=== PATIENT | male | born 1960 | race Caucasian/White ===

== ENCOUNTER → 2019-11-01 | Outpatient (CLI) | payer MEDICAID, SELFPAY | PROVIDERS: Family Provider Internal Medicine; Visit Provider Thoracic Surgery (Cardiothoracic Vascular Surgery) | DX: I65.23 Occlusion and stenosis of bilateral carotid arteries (principal) | CPT/HCPCS: 93880 ==

== ENCOUNTER → 2020-01-03 08:12 | Outpatient (BNVA) | payer MEDICAID, SELFPAY | PROVIDERS: Family Provider Internal Medicine; PCP Internal Medicine; Referring Provider Internal Medicine Cardiovascular Disease; Visit Provider Specialist | DX: R29.90 Unspecified symptoms and signs involving the nervous system (principal); R26.9 Unspecified abnormalities of gait and mobility; Z87.891 Personal history of nicotine dependence | CPT/HCPCS: 99204 ==

== ENCOUNTER 2020-01-12 13:22 | Outpatient (CLI) | payer MEDICAID, SELFPAY ==
--- NOTE | 2020-01-12 13:45 | MR_ITS ---
WS: [id number] MRI HEAD WITHOUT CONTRAST TECHNIQUE: Sagittal T1, T2 axial, T2 axial FLAIR, axial and coronal T1 images, axial susceptibility w eighted imaging, axial diffusion weighted images, and coronal T2 images were obtained. CLINICAL INFORMATION: unsteady gait COMPARISON: CTA head neck July 27, 2013 FINDINGS: No evidence of restricted diffusion to suggest acute ischemia. Ventricular system and basal cisterns are patent. Advanced patchy supra and infratentorial white matter changes consistent with small vesse l disease in a patient this age. Moderate parenchymal volume loss. Small vessel changes in the aruna. Chronic lacunar infarcts right betancourt radiata and thalamus. Multiple chronic lacunar infarcts in the LEFT CEREBELLUM. Partial opacification right mastoid air cells. Mucosal thickening paranasal sinuses with partial opac ification of the ethmoid air cells and right frontal ethmoidal recess. Moderate mucosal thickening ri ght maxillary sinus. Normal vascular flow voids at the skull base. Incidental sebaceous cyst left sca lp. Visualized upper cervical canal is patent. Normal sella. No hemosiderin on the susceptibility weighte d images. Normal optic chiasm and pituitary infundibulum. Normal supraclinoid ICA flow voids. Visuali zed proximal 7th and 8th cranial nerves appear normal. MR/MR head wo con* [id number] IMPRESSION: 1. No evidence of restricted diffusion to suggest acute ischemia. 2. Advanced supra and infratentorial small vessel changes with moderate parenc hymal volume loss. This appears progressed since 2012. 3. Multiple chronic lacunar infarcts involving the right bet[place]ourt radiata, right thalamus, and LEFT CEREBELLUM. 4. Prominent small vessel changes in the aruna. 5. Partial opacification right mastoid air cells. 6. Inflammatory changes in the paranasal sinuses with right frontoethmoidal, e thmoidal and right maxillary sinusitis. 7. Moderate symmetric atrophy involving the temporal lobes and hippocampal for mation. 8. No evidence of ventricular dilatation or normal pressure hydrocephalus.
== END 2020-01-12 13:23 | disposition home or self-care (01) ==
LOC: RADSHAW 13:23
PROVIDERS: Family Provider Internal Medicine; PCP Internal Medicine; Visit Provider Specialist
DX: I63.9 Cerebral infarction, unspecified (principal); R26.81 Unsteadiness on feet
CPT/HCPCS: 70551

== ENCOUNTER → 2020-01-16 11:55 | Outpatient (BNVA) | payer MEDICAID, SELFPAY | PROVIDERS: Family Provider Internal Medicine; PCP Internal Medicine; Visit Provider Specialist | DX: G62.9 Polyneuropathy, unspecified (principal); Z87.891 Personal history of nicotine dependence | CPT/HCPCS: 95909 ==

== ENCOUNTER 2020-02-09 13:47 | Outpatient (CLI) | payer MEDICAID, SELFPAY ==
--- NOTE | 2020-02-09 14:15 | USCV_ITS ---
Riccardo Dumont Age: 59 Gender: M : 1960 Exam Date: 02/09/2020 13:48 Ordering Phys: Yoel Muir MD ([email or web address]) Technologist: Tamra Simmons Exam Location: [facility] – [place] Indication: SOB POUNDING OF HEART BP: / HR: 71 Rhythm: Sinus Technical Quality: Adequate MEASUREMENTS (Male / Female) Normal Values 2D ECHO LV Diastolic Diameter PLAX 4.5 cm 4.2 - 5.9 / 3.9 - 5.3 cm LV Systolic Diameter PLAX 3.1 cm LV Chamber Size 3.7 cm IVS Diastolic Thickness 1.1 cm 0.6 - 1.0 / 0.6 - 0.9 cm IVS Systolic Thickness 1.5 cm LVPW Diastolic Thickness 1.0 cm 0.6 - 1.0 / 0.6 - 0.9 cm LVPW Systolic Thickness 1.2 cm RV Chamber Size 3.6 cm LVOT Diameter 2.0 cm LV Ejection Fraction 2D Teich 58.0 % LV Ejection Fraction MOD 2C -1.3 % LV Ejection Fraction 2C AL 0.4 % LA Diameter 3.9 cm LA Width 2.5 cm LA Height 4.4 cm RA Width 3.0 cm RA Height 4.5 cm Aorta at Sinotubular Diameter 3.3 cm M-MODE LV Diastolic Diameter MM 4.8 cm 4.2 - 5.9 / 3.9 - 5.3 cm LV Systolic Diameter MM 2.6 cm LV Ejection Fraction MM Teich 77.8 % IVS Diastolic Thickness MM 1.0 cm 0.6 - 1.0 / 0.6 - 0.9 cm IVS Systolic Thickness MM 1.3 cm LVPW Diastolic Thickness MM 1.3 cm 0.6 - 1.0 / 0.6 - 0.9 cm LVPW Systolic Thickness MM 2.1 cm RV Diastolic Diameter MM 1.6 cm Aortic Annulus Diameter 3.6 cm LA Ao Ratio MM 1.1 MV E Point Septal Separation 0.4 cm DOPPLER AV Peak Velocity 168.0 cm/s LVOT Peak Velocity 110.0 cm/s AV Area Cont Eq vti 2.2 cm squared AV Area Cont Eq pk 2.1 cm squared MV Area PHT 3.1 cm squared Mitral E to A Ratio 1.0 MV E' Velocity 78.0 cm/s Mitral E to MV E' Ratio 10.7 Mitral E to LV E' Lateral Ratio 8.3 Mitral E to LV E' Septal Ratio 15.0 TR Peak Velocity 220.0 cm/s TR Peak Gradient 19.3 mmHg TR Mean Velocity 197.1 cm/s TR Mean Gradient 17.5 mmHg TR Velocity Time Integral 65.7 cm TV Peak E Velocity 54.0 cm/s Right Atrial Pressure 3.0 mmHg Pulmonary Artery Systolic Pressu 22.4 mmHg PV Peak Velocity 79.0 cm/s RV Acceleration Time 0.1 s RV Ejection Time 0.3 s RV AcT/ET 0.4 FINDINGS Left Ventricle Normal left ventricular cavity size. Moderate left ventricular hypertrophy. Normal left ventricular systolic function. No regional wall motion abnormalities. Grade II/IV diastolic dysfunction, moderately elevated filling pressures. Left ventricular ejection fraction is estimated at 65-70 %. There is no obvious gradient in the left ventricular outflow tract. There is also no obvious systolic anterior motion of the mitral valve. The study is of suboptimal quality. Right Ventricle Normal right ventricular size and systolic function. Normal right ventricular systolic pressure. Right Atrium The right atrium is normal in size. Left Atrium The left atrium is normal in size. Mitral Valve Structurally normal mitral valve without significant stenosis or prolapse. There is no mitral regurgitation. Aortic Valve Structurally normal trileaflet aortic valve. No aortic valve stenosis. Mild aortic valve regurgitation. Tricuspid Valve Structurally normal tricuspid valve. Trace tricuspid valve regurgitation. Pulmonic Valve Pulmonic valve not well visualized. Pericardium Normal pericardium without effusion. Aorta Normal ascending aorta dimension. CONCLUSIONS Normal left ventricular cavity size. Moderate left ventricular hypertrophy. Normal left ventricular systolic function. No regional wall motion abnormalities. Grade II/IV diastolic dysfunction, moderately elevated filling pressures. Left ventricular ejection fraction is estimated at 65-70 %. There is no obvious gradient in the left ventricular outflow tract. There is also no obvious systolic anterior motion of the mitral valve. The study is of suboptimal quality. Structurally normal trileaflet aortic valve. No aortic valve stenosis. Mild aortic valve regurgitation. Dr. Yoel Muir MD (Electronically Signed) Final Date: 09 February 2020 15:25 S
== END 2020-02-09 13:48 | disposition home or self-care (01) ==
PROVIDERS: Family Provider Internal Medicine; PCP Internal Medicine; Visit Provider Internal Medicine Cardiovascular Disease
DX: R00.2 Palpitations (principal); R06.02 Shortness of breath
CPT/HCPCS: 93306

== ENCOUNTER 2020-02-16 10:33 | Emergency (ER) | payer MEDICAID, SELFPAY ==
[2020-02-16 10:40] VITALS: BP 154/78; PULSE 110; RESP 16; TEMP 36.7; O2SAT 95; BMI 27.1
[2020-02-16 10:50] VITALS: O2SAT 94
--- NOTE | 2020-02-16 10:52 | XR_ITS ---
WS: [id number] PORTABLE CHEST HISTORY: dyspnea/cough COMPARISON: 05/21/2017 Hyperinflated lungs. Curvilinear area of scarring in the lower LEFT lung. No nodule or pneumonia. No pleural effusion or pneumothorax. Cardiac size: Normal. Mediastinum/Aorta: Mild atherosclerosis aorta. No osseous abnormality seen. XR/XR chest 1V portable [id number] IMPRESSION: Chronic emphysema and stable scar LEFT lower lobe.
--- NOTE | 2020-02-16 10:52 | ECG_ITS ---
Measurements Intervals [place] Rate: 105 P: 52 KS: 151 QRS: -63 QRSD: 102 T: 67 QT: 325 QTc: 431 SINUS TACHYCARDIA INFERIOR MYOCARDIAL INFARCTION , OF INDETERMINATE AGE ANTEROLATERAL MYOCARDIAL INFARCTION , OF INDETERMINATE AGE Compared to ECG 04/08/2018 05:55:57 Sinus rhythm no longer present Myocardial infarct finding still present Electronically Signed On 02-16-2020 11:06:14 CDT by Rosa Maria Gamez M.D. [id number]
--- NOTE | 2020-02-16 10:52 | W.ED.CHESTPA ---
HPI - Chest Pain General: Chief Complaint: Chest Pain Stated Complaint: CHEST PRESURE Time Seen by Provider: 02/16/20 10:37 History of Present Illness: HPI narrative: 59yo male presents emergency room with an episode of chest pain. It began this morning while he was sitting at rest at home. He took a sublingual nitro and it resolved after about 15 to 20 minutes he had associated dyspnea and radiation of pain into his arms when he had this. He also had some shortness of breath all of these symptoms was resolved within 15 or 20 minutes of taking the sublingual nitro. He had some nausea as well but did not throw up. Patient has a known history of coronary artery disease and in December of last year had an in-stent stenosis that was re-stented by Dr. Muir the cath report was reviewed. Also reviewed and compared to EKG done in that timeframe he has some new Q waves in the anterior precordial leads. There appears to be some rate related ST changes I set both the old and new EKGs to Dr. Lanier. We discussed some on the phone he feels there are rate related and do not represent any acute changes. The patient is seen the emergency room initially he does not have any chest pain her symptoms have all resolved since taking the sublingual nitro and have not recurred. He has recently been getting work-up from Dr. Muir including an echocardiogram and a Holter monitor to evaluate for what he describes as palpitations and racing of his heart rate. He had similar symptoms this morning when he is at home those also resolved after he took that nitro. Associated symptoms: Deny abdominal pain, dyspnea, fever(s), nausea or vomiting Review of Systems Const: Denies: fever, chills, body aches, change in appetite, fatigue or malaise ENMT: Denies: throat pain, ear pain, nasal discharge or nasal congestion Card: Denies: chest pain, edema, shortness of breath on exertion or shortness of breath when lying down Resp: Denies: shortness of breath, productive cough or non-productive cough GI: Denies: abdominal pain, nausea, vomiting, vomiting blood, coffee grounds in vomit, diarrhea, constipation, bloating, blood in stool or black tarry stool : Denies: flank pain, painful urination, urinary frequency or urinary urgency Skin/Breast: Denies: rash or itching PFSH ED PFSH: Medical History (Updated 02/16/20 @ 13:25 by Lloyd Hernandez, DO) Arteriosclerosis of both carotid arteries Chronic kidney disease COPD (chronic obstructive pulmonary disease) Coronary artery disease Diabetes mellitus Essential hypertension Hyperlipemia Myocardial infarct PAD (peripheral artery disease) Pounding heartbeat Tobacco abuse Surgical History H/O carotid endarterectomy H/O heart artery stent Social History Smoking and tobacco status: former smoker Quit status (tobacco): has quit using tobacco Year quit tobacco: 2012 Alcohol intake: current Alcohol intake frequency: holidays/special occasions only History of recent travel: No Physical Exam Const: COMMON NORMALS: no apparent distress GENERAL APPEARANCE: cooperative and comfortable ORIENTATION/CONSCIOUSNESS: Yes awake, Yes oriented to person, Yes oriented to place and Yes oriented to time HENMT: COMMON NORMALS: normocephalic, head/scalp atraumatic, hearing grossly normal bilaterally, external ears normal, EAC's normal, TM's normal bilaterally, nasal mucous membranes and turbinates normal, moist oral mucous membranes and oropharynx normal HEAD & SCALP: normocephalic and atraumatic NOSE: nasal mucous membranes and turbinates normal EXTERNAL EAR: Yes external ears normal EXTERNAL AUDITORY CANAL: EAC's normal TYMPANIC MEMBRANE: TM's normal bilaterally Eye: COMMON NORMALS: PERRL, EOMs intact bilaterally, conjunctivae normal and no scleral icterus CONJUNCTIVA: Yes conjunctivae normal PUPIL: Yes PERRL Neck/C-Spine: COMMON NORMALS: full ROM, no lymphadenopathy, supple and no JVD Lymph: LYMPHATIC: no lymphadenopathy noted and no lymphedema noted Resp: COMMON NORMALS: normal respiratory effort, no retractions, no use of accessory muscles and clear to auscultation bilaterally AUSCULTATION: clear to auscultation bilaterally Cardio: COMMON NORMALS: no JVD, regular rate, regular rhythm and no murmurs RATE: regular rate RHYTHM: regular rhythm GI: COMMON NORMALS: soft to palpation and no hepatosplenomegaly AUSCULTATION: Yes normoactive bowel sounds PALPATION: Yes soft, No tender, No guarding and Yes no hepatosplenomegaly Extremity: COMMON NORMALS: normal to inspection, normal capillary refill, no clubbing, cyanosis or edema, no calf tenderness and no pedal edema Neuro: SENSORIUM/ORIENTATION: Yes oriented to person, Yes oriented to place and Yes oriented to time Skin: COMMON NORMALS: no rashes or lesions noted GENERAL SKIN EXAM: no rashes or lesions noted Course Vital Signs: Vital signs: Vital Signs Temperature 98.1 F 02/16/20 10:40 Pulse Rate 101 H 02/16/20 13:38 Respiratory Rate 15 02/16/20 12:20 Blood Pressure 165/91 02/16/20 13:38 Pulse Oximetry 95 02/16/20 13:38 MDM - Chest Pain MDM Narrative: Medical decision making narrative: Due to patients history of coronary disease and the history of his presenting complaint today I strongly recommended that he be placed on observation further evaluated for cardiac ischemia. He is at extremely high risk by leaving early he exposes himself to the risk of myocardial infarction resulting in severe disability or even . This was relayed to him and he expressed understanding and still wished to go I gave him a new prescription for nitro because of believe his old one is no longer effective. Did attempt to call Dr. Muir who is a patient stated here follow Isadora's recommendation but he was not available today. Lab Data: Labs: Lab Results 02/16/20 02/16/20 02/16/20 Range/Units 10:45 10:45 10:45 WBC 7.6 (4.0-10.0) 10^3/ uL RBC 6.55 H (4.1-5.3) 10^6/u L Hgb 17.3 H (11.7-16.6) g/dL Hct 53.2 H (42.0-52.0) % MCV 81.2 (80-94) fL MCH 26.4 L (28.0-34.0) pg MCHC 32.5 (30.0-36.0) g/dL RDW 13.8 (12.1-15.1) % Plt Count 243 (130-400) 10^3/c mm MPV 9.8 (7.4-10.4) fL Neut % (Auto) 68.6 % Lymph % (Auto) 21.3 % [place] % (Auto) 7.8 % Eos % (Auto) 1.1 % Baso % (Auto) 0.7 % Neut # (Auto) 5.2 (1.8-7.7) 10^3/u L Lymph # (Auto) 1.6 (0.8-4.8) 10^3/u L [place] # (Auto) 0.6 (0.2-0.9) 10^3/u L Eos # (Auto) 0.1 (0.0-0.8) 10^3/u L Baso # (Auto) 0.1 (0.0-0.1) 10^3/u L Nucleated RBC % (a uto) 0 % Nucleated RBCs # 0.0 /100WBC Sodium 132 L (136-145) mmol/L Potassium 4.9 (3.5-5.1) mmol/L Chloride 95 L (98-107) mmol/L Carbon Dioxide 25 (22-29) mmol/L Anion Gap 16.9 (5-19) BUN 20 (8-23) mg/dL Creatinine 1.2 (0.7-1.2) mg/dL GFR Calculation 61.8 L (90-130) mL/min Glucose 445 H (65-115) mg/dL Calculated Osmolal ity 290 (285-295) mOsm/k g Calcium 11.4 H (8.5-10.5) mg/dL Total Bilirubin 0.5 (0.15-1.2) mg/dL AST 5 (0-40) U/L ALT 20 (0-41) U/L Alkaline Phosphata se 111 (40-130) IU/L Troponin T Baselin e 31 H (0-15) ng/mL Troponin T 120 Min [place] (0-15) ng/mL Delta Troponin T (0-10) ABS# Total Protein 7.5 (6.6-8.7) g/dL Albumin 4.3 (3.5-5.2) g/dL Globulin 3.2 (1.3-4.6) g/dL 02/16/20 Range/Units 12:34 WBC (4.0-10.0) 10^3/ uL RBC (4.1-5.3) 10^6/u L Hgb (11.7-16.6) g/dL Hct (42.0-52.0) % MCV (80-94) fL MCH (28.0-34.0) pg MCHC (30.0-36.0) g/dL RDW (12.1-15.1) % Plt Count (130-400) 10^3/c mm MPV (7.4-10.4) fL Neut % (Auto) % Lymph % (Auto) % [place] % (Auto) % Eos % (Auto) % Baso % (Auto) % Neut # (Auto) (1.8-7.7) 10^3/u L Lymph # (Auto) (0.8-4.8) 10^3/u L [place] # (Auto) (0.2-0.9) 10^3/u L Eos # (Auto) (0.0-0.8) 10^3/u L Baso # (Auto) (0.0-0.1) 10^3/u L Nucleated RBC % (a uto) % Nucleated RBCs # /100WBC Sodium (136-145) mmol/L Potassium (3.5-5.1) mmol/L Chloride (98-107) mmol/L Carbon Dioxide (22-29) mmol/L Anion Gap (5-19) BUN (8-23) mg/dL Creatinine (0.7-1.2) mg/dL GFR Calculation (90-130) mL/min Glucose (65-115) mg/dL Calculated Osmolal ity (285-295) mOsm/k g Calcium (8.5-10.5) mg/dL Total Bilirubin (0.15-1.2) mg/dL AST (0-40) U/L ALT (0-41) U/L Alkaline Phosphata se (40-130) IU/L Troponin T Baselin e (0-15) ng/mL Troponin T 120 Min [place] 27.39 H (0-15) ng/mL Delta Troponin T -3.61 L (0-10) ABS# Total Protein (6.6-8.7) g/dL Albumin (3.5-5.2) g/dL Globulin (1.3-4.6) g/dL Discharge Plan Discharge Patient Disposition: Left Against Medical Advice Clinical Impression: Coronary artery disease, Unstable angina Condition: Stable Prescriptions: New nitroglycerin 0.4 mg tablet, sublingual 0.4 mg SUBLINGUAL Q5M PRN (Reason: chest pain) Qty: 30 RF: 0 No Action clopidogrel 75 mg tablet 75 mg PO DAILY RF: 0 enalapril maleate 20 mg tablet 20 mg PO BID RF: 0 hydralazine 100 mg tablet 100 mg PO TID RF: 0 hydrocodone-acetaminophen 5-325 mg tablet 1 tab PO Q8H PRNRF: 0 latanoprost 0.005 % drops 1 drop ophthalmic (eye) DAILY RF: 0 metformin 500 mg tablet 500 mg PO BID RF: 0 metoprolol succinate 25 mg tablet extended release 24 hr 25 mg PO DAILY RF: 0 omeprazole 20 mg capsule,delayed release(DR/EC) 20 mg PO DAILY RF: 0 vitamins A,C,V-zgnf-ncvkvg PO DAILY RF: 0 sertraline 50 mg tablet 50 mg PO DAILY RF: 0 amlodipine 10 mg tablet 20 mg PO DAILY RF: 0 pravastatin 40 mg tablet 40 mg PO DAILY 90 Days Qty: 90 RF: 3 Discharge Orders: Discharge Order (Routine); Ordered 02/16/20 Ordered By: Lloyd Hernandez Referrals: Rg German DO [Primary Care Provider] - Discharge Diet: Usual diet Discharge Activity: Limit activity as instructed Activity Restrictions/Additional Instructions: Due to your personal history of coronary disease and the history of your presenting complaint today we strongly recommend that you be placed on observation further evaluated for cardiac ischemia. You are at extremely high risk by leaving early you exposure self to the risk of myocardial infarction resulting in severe disability or even . Discharge Date/Time: 02/16/20 13:38 Coding Level of Care Code ED Office Runner for Normag Fwd Exam Comprehensive
[2020-02-16 11:12] LABS: Basophils # 0.1 10^3/uL (0.0-0.1); Basophils % 0.7 %; Eosinophils # 0.1 10^3/uL (0.0-0.8); Eosinophils % 1.1 %; Hematocrit 53.2 % (42.0-52.0); Hemoglobin 17.3 g/dL (11.7-16.6); Lymphocytes # 1.6 10^3/uL (0.8-4.8); Lymphocytes % 21.3 %; Mean Corpuscular HGB Conc 32.5 g/dL (30.0-36.0); Mean Corpuscular Hemoglobin 26.4 pg (28.0-34.0); Mean Corpuscular Volume 81.2 fL (80-94); Mean Platelet Volume 9.8 fL (7.4-10.4); Monocytes # 0.6 10^3/uL (0.2-0.9); Monocytes % 7.8 %; Neutrophils # 5.2 10^3/uL (1.8-7.7); Neutrophils % 68.6 %; Nucleated Red Blood Cells % 0 %; Platelet Count 243 10^3/cmm (130-400); Red Blood Count 6.55 10^6/uL (4.1-5.3); Red Cell Distribution Width 13.8 % (12.1-15.1); White Blood Count 7.6 10^3/uL (4.0-10.0)
--- NOTE | 2020-02-16 11:21 | PC.NURSE ---
portable chest xray at bedside
[2020-02-16 11:31] LABS: Alanine Aminotransferase 20 U/L (0-41); Albumin Level 4.3 g/dL (3.5-5.2); Alkaline Phosphatase 111 IU/L (40-130); Anion Gap 16.9 (5-19); Blood Urea Nitrogen 20 mg/dL (8-23); Calcium 11.4 mg/dL (8.5-10.5); Carbon Dioxide 25 mmol/L (22-29); Chloride 95 mmol/L (98-107); Globulin 3.2 g/dL (1.3-4.6); Glomerular Filtration Rate 61.8 mL/min (90-130); Glucose 445 mg/dL (65-115); Osmolality Calculated 290 mOsm/kg (285-295); Potassium 4.9 mmol/L (3.5-5.1); Sodium 132 mmol/L (136-145); Total Bilirubin 0.5 mg/dL (0.15-1.2); Total Protein 7.5 g/dL (6.6-8.7)
[2020-02-16 11:32] LABS: Troponin(5th) Baseline 31 ng/mL (0-15)
[2020-02-16 11:39] LABS: Aspartate Amino Transferase 5 U/L (0-40)
[2020-02-16 12:20] VITALS: BP 155/88; PULSE 107; RESP 15; O2SAT 95
[2020-02-16 13:02] LABS: Troponin 5 2HR 27.39 ng/mL (0-15)
[2020-02-16 13:06] LABS: Troponin 5 2HR Delta -3.61 ABS# (0-10)
[2020-02-16] MEDS: insulin regular-human 100 units/1 mL 5 UNIT IVP (13:08)
[2020-02-16 13:38] VITALS: BP 165/91; PULSE 101; O2SAT 95
--- NOTE | 2020-02-16 16:52 | ECG_ITS ---
Measurements Intervals [place] Rate: 99 P: 51 VT: 153 QRS: -60 QRSD: 93 T: 56 QT: 339 QTc: 435 SINUS RHYTHM INDETERMINATE AXIS INFERIOR MYOCARDIAL INFARCTION , OF INDETERMINATE AGE ANTEROLATERAL MYOCARDIAL INFARCTION , OF INDETERMINATE AGE Compared to ECG 02/16/2020 10:48:36 Indeterminate axis now present Sinus tachycardia no longer present Myocardial infarct finding still present Electronically Signed On 02-16-2020 21:13:37 CDT by Rosa Maria Gamez M.D. [email or web address]
== END 2020-02-16 13:38 | disposition left against medical advice (07) ==
PROVIDERS: Emergency Provider Family Medicine; Family Provider Internal Medicine; PCP Internal Medicine
DX: I25.110 Atherosclerotic heart disease of native coronary artery with unstable angina pectoris (principal); Z53.21 Procedure and treatment not carried out due to patient leaving prior to being seen by health care provider; J44.9 Chronic obstructive pulmonary disease, unspecified; E11.22 Type 2 diabetes mellitus with diabetic chronic kidney disease; I12.9 Hypertensive chronic kidney disease with stage 1 through stage 4 chronic kidney disease, or unspecified chronic kidney disease; N18.9 Chronic kidney disease, unspecified; E78.5 Hyperlipidemia, unspecified; I25.2 Old myocardial infarction; Z87.891 Personal history of nicotine dependence
CPT/HCPCS: 12345; 36415; 71045; 80053; 84484; 85025; 93005; 96375; 99283; J1815

== ENCOUNTER → 2020-03-19 14:29 | Outpatient (BNVA) | payer MEDICAID, SELFPAY | PROVIDERS: Family Provider Internal Medicine; PCP Internal Medicine; Visit Provider Specialist | DX: R29.90 Unspecified symptoms and signs involving the nervous system (principal); R26.9 Unspecified abnormalities of gait and mobility; R07.9 Chest pain, unspecified; Z87.891 Personal history of nicotine dependence | CPT/HCPCS: 99214 ==

== ENCOUNTER → 2022-04-29 10:28 | Outpatient (BNVA) | payer MEDICAID, SELFPAY | PROVIDERS: PCP Internal Medicine; Visit Provider Podiatrist Foot & Ankle Surgery | DX: L60.3 Nail dystrophy (principal); E11.51 Type 2 diabetes mellitus with diabetic peripheral angiopathy without gangrene; Z79.4 Long term (current) use of insulin; I70.213 Atherosclerosis of native arteries of extremities with intermittent claudication, bilateral legs; M21.611 Bunion of right foot; M20.41 Other hammer toe(s) (acquired), right foot; M20.42 Other hammer toe(s) (acquired), left foot; B35.3 Tinea pedis; R09.89 Other specified symptoms and signs involving the circulatory and respiratory systems; M21.612 Bunion of left foot | CPT/HCPCS: 11721; 99213 ==

== ENCOUNTER 2022-06-24 13:11 | Outpatient (CLI) | payer MEDICAID, SELFPAY ==
--- NOTE | 2022-06-24 13:15 | USCV_ITS ---
Riccardo Dumont Age: 62 Gender: M : 1960 Exam Date: 06/24/2022 13:34 Ordering Phys: Pedro Guerin DPM Technologist: Exam Location: [facility] [place]_ Indication: leg pain RIGHT LEFT Brachial 132.00 mmHg Brachial 130.00 mmHg Pressure (mmHg) Waveform Pressure (mmHg) Waveform 100.00 Above Knee 106.00 90.00 Below Knee 84.00 88.00 BI DATA ARCHITECT 76.00 117.00 DPA 0.67 Ankle/Brachial Index 0.58 62.00 Pre-Exercise Toe Pressure 74.00 0.47 Pre-Exercise Toe/Brachial Index 0.56 FINDINGS Resting LARISA of 0.67 on the right and 0.58 on the left Resting TBI of 0.47 on the right and 0.56 on the left PVR waveforms showing delayed peaking low amplitude waveforms with blunting of the dicrotic notch CONCLUSIONS Abnormal resting ABIs and TBIs bilaterally, suggesting moderately severe peripheral arterial disease Dr Shonda Dupont MD [facility] (Electronically Signed) Final Date: 24 June 2022 20:56 S
== END 2022-06-24 13:12 | disposition home or self-care (01) ==
PROVIDERS: PCP Internal Medicine; Visit Provider Podiatrist Foot & Ankle Surgery
DX: R09.89 Other specified symptoms and signs involving the circulatory and respiratory systems (principal); M79.606 Pain in leg, unspecified
CPT/HCPCS: 93923

== ENCOUNTER → 2022-08-12 09:42 | Outpatient (BNVA) | payer MEDICAID, SELFPAY | PROVIDERS: PCP Internal Medicine; Visit Provider Podiatrist Foot & Ankle Surgery | DX: L60.3 Nail dystrophy (principal); E11.51 Type 2 diabetes mellitus with diabetic peripheral angiopathy without gangrene; Z79.4 Long term (current) use of insulin; I70.213 Atherosclerosis of native arteries of extremities with intermittent claudication, bilateral legs; B35.3 Tinea pedis; M21.611 Bunion of right foot; M20.41 Other hammer toe(s) (acquired), right foot; M21.612 Bunion of left foot; M20.42 Other hammer toe(s) (acquired), left foot | CPT/HCPCS: 11721 ==

== ENCOUNTER → 2022-09-18 12:25 | Outpatient (BNVA) | payer MEDICAID, SELFPAY | PROVIDERS: PCP Nurse Practitioner Family; Visit Provider Internal Medicine | DX: I73.9 Peripheral vascular disease, unspecified (principal); E78.5 Hyperlipidemia, unspecified | CPT/HCPCS: 99214 ==

== ENCOUNTER 2022-10-01 12:35 | Observation (INO) | payer MEDICAID, SELFPAY ==
[2022-10-01] VITALS (24 sets, daily range): BP systolic 121–155; BP diastolic 60–74; PULSE 52–85; RESP 4–23; TEMP 36.7–37.2; O2SAT 94–98; BMI 25.0
[2022-10-01] MEDS: diphenhydrAMINE 50 mg Capsule PO (07:51)
[2022-10-01 08:07] LABS: Glucose Point of Care 136 mg/dL (70-110)
[2022-10-01 08:23] LABS: Basophils % 0.5 %; Eosinophils # 0.3 10^3/uL (0.0-0.8); Eosinophils % 3.7 %; Hematocrit 49.5 % (42.0-52.0); Hemoglobin 16.3 g/dL (11.7-16.6); Mean Corpuscular HGB Conc 32.9 g/dL (30.0-36.0); Mean Corpuscular Hemoglobin 28.2 pg (28.0-34.0); Mean Corpuscular Volume 85.8 fl (80-94); Mean Platelet Volume 9.4 fL (7.4-10.4); Monocytes # 0.7 10^3/uL (0.2-0.9); Neutrophils # 4.43 10^3/uL (1.8-7.7); Nucleated Red Blood Cells % 0 %; Platelet Count 188 10^3/cmm (130-400); Red Blood Count 5.77 10^6/uL (4.1-5.3); White Blood Count 7.5 10^3/uL (4.0-10.0)
--- NOTE | 2022-10-01 08:30 | XACV_ITS ---
Wt: 84 kg BSA: 2.07 m2 Any Known Allergies: Other Gender: Male : 1960 Exam Type: Invasive Peripheral Vascular Procedure(s): Procedure Description: Diagnostic procedure Procedure Description: Peripheral Cath Diagnostic Procedure Procedure Description: Abdominal aortic angiography Procedure Description: Lower extremities' angiography Procedure Description: Peripheral vascular Intervention Procedure Description: PV Balloon Procedure Description: PV Stent Procedure Description: PV Atherectomy Procedure Description: Miscellaneous Procedure Description: ACT Exam Priority: Routine Abdominal Diagnostic Findings Distal abdominal aorta: Patent. Lower Extremity Diagnostic Findings INDICATION: 62-year-old man with history of smoking, diabetes, hyperlipidemia, PAD has been referred from podiatry clinic secondary to severe, lifestyle limiting claudication symptoms bilaterally. Patient had ABIs recently that showed significantly reduced LARISA value of 0.67 on right side and 0.58 on the left lower extremity. He cannot walk more than 100 feet without having to stop. Left lower extremity: Left common iliac artery: Patent Left external iliac artery: Has severe 80 to 90% stenosis Left common femoral artery: Patent Left profunda artery: Patent Left SFA has diffuse disease severe serial stenoses that are 80 to 90% stenosed in the proximal to mid section Left popliteal artery: Patent Left TP segment: Patent Left anterior tibial artery: Occluded Left posterior tibial artery patent Left peroneal artery: Patent. Right lower extremity: Right common iliac artery: Patent Right external iliac artery: Patent Right common femoral artery: Patent Right profunda artery: Patent Right SFA: Has severe proximal vessel multiple areas of 90-95% stenoses. Right popliteal artery: Patent Right TP segment: Patent Right anterior tibial artery: Occluded Right posterior tibial artery: Patent Right peroneal artery: Patent. Lower Extremity Interventional Findings Left Mid-longitudinal Superficial Femoral Artery: 90% stenosis treated with AB Plain 35 TIRE MAN Catheter [id number]. PROCEDURE DETAIL: After performing abdominal aortic angiogram, short 6 Marshallese sheath in right common femoral artery was switched to a long sheath that was placed in left external iliac artery. Using Glidewire and seeker support catheter external iliac and SFA lesions were crossed and wire was placed in TP segment. We then performed balloon angioplasty of right external iliac artery stenosis with a 6.0x40mm Balloon. This was followed by switching Glidewire to a Viper wire over seeker support catheter. Multiple runs of orbital arthrectomy were performed. We then dilated SFA with 5.0X250 mm balloon. We then placed 7.0 x 59mm stent in the left external iliac artery. At this time final angiogram showed excellent flow in the left lower extremity. . Conclusions Severe bilateral peripheral artery disease. S/p successful revascularization of left lower extremity with stent placement and left external iliac artery and orbital arthrectomy with balloon angioplasty of left SFA. We will stage revascularization of right lower extremity. Left Mid-longitudinal Superficial Femoral Artery was treated with Balloon. Left Mid-longitudinal External Iliac Artery was treated with Balloon and Stent. Recommendations Patient will be put on Xarelto 2.5 mg twice daily and Plavix. Plan for stages revascularization of the right lower extremity. Outpatient cardiology follow up. Hemodynamic Data Phase:Rest AO : / ( 25.0 ) @ 9:22:00 AM 129.0 / 49.0 ( 76.0 ) @ 9:30:00 AM 96.0 / 49.0 ( 70.0 ) @ 9:31:00 AM 99.0 / 53.0 ( 74.0 ) @ 9:34:00 AM 110.0 / 46.0 ( 71.0 ) @ 9:47:00 AM 146.0 / 46.0 ( 77.0 ) @ 9:52:00 AM 97.0 / 52.0 ( 72.0 ) @ 9:59:00 AM 115.0 / 58.0 ( 81.0 ) @ 10:06:00 AM 97.0 / 76.0 ( 83.0 ) @ 10:07:00 AM 170.0 / 70.0 ( 107.0 ) @ 10:22:00 AM 237.0 / 96.0 ( 140.0 ) @ 10:24:00 AM 151.0 / 61.0 ( 97.0 ) @ 10:25:00 AM 106.0 / 72.0 ( 89.0 ) @ 10:32:00 AM Access Site Site: Right Femoral artery Sheath Size: 6 Fr Hemost... Method: Suture Hemost... Success: Successful Procedure Details Findings Procedure Consent Obtained. Admit Source: Out Patient. Pre-Procedure Time Out. Identified patient by full name and date of as verbalized by the patient/guarantor. Does the consent match the physician's order: Yes. Accurate & Complete Informed Consent: Yes. Inpatient/Outpatient History & Physical on Chart: Yes. If H&P is completed, is and addenduem needed: No; If yes, is the addendum complete: N/A. Visualize and Verify Site with Patient/Guarantor: N/A. Relevant Radiology Images available: N/A. The risks, benefits, and alternatives of sedation and/or procedure were discussed by physician. The patient agrees to continue. Procedure started. Correct patient, site and procedure confirmed by cath team. Current diagnosis: Severe Lifestyle Limiting Claudication. PERRLA. Strong, equal hand carpet inspector bilaterally. Lungs clear x 5 lobes. IV Site on Arrival: 20 gauge in the right anticubital. IV Fluids: 0.9% NaCl at KVO. 0 mL infused prior to asset availability leader. Pre Procedural Pulses: bilateral dorsalis pedis was Absent. Pre Procedural Pulses: bilateral posterior tibial was Doppled. Oxygen started at 3liters/min via nasal canula. bilateral groins was prepped with chloroprep then draped in the usual sterile fashion. Baseline sample Acquired. HR: 65 BPM. Physician notified. Baseline sample Acquired. HR: 64 BPM. Physician arrived. Equipment: Peripheral. Cardiac Cath Pack. ACIST Manifold Kit Model BT 2000. Heparinized Saline (2 units/mL), 1000 mL bag. Physician scrubbed in. Time out performed with cath team. Immediate Pre-Procedure Time Out. Correct Patient: Yes; Correct Procedure: Yes; Correct Site: Yes; Correct Patient Position: Yes; Correct Supplies: Yes; Dried Flammable Prep: Yes; Blood Products Available: N/A;. Lidocaine 1% infiltrated to the right groin. Arterial access obtained with micropuncture set. A 5 Fr UF catheter in over wire. Abdominal aortogram performed in AP @ 10 mL/sec for a total of 30 mL. Glidewire inserted. Glidewire advanced down the Proximal left SFA. UF catheter out over the wire. Sheath upsized to a 6 Fr. 45 cm Sheath injected in Left Iliac femoral artery and runoff performed at 10ml/sec for a total of 30 ml. Left lower extremity angiography performed using DSA at 10 ml/sec for a total of 20 ml. Inflation number : 1 A AB ARMADA 35 OTW [id number] was prepped and advanced across the Mid External Iliac, Left , then inflated to 6 MARC for 1:30 seconds. Balloon out over the wire. Results checked. Seeker catheter inserted over the glidewire. Seeker and Glidewire advanced down the Left SFA/Popliteal. Hand Injection thru the seeker of the popliteal artery using DSA. Viperwire inserted. Parked in the Tibial Peroneal Trunk, Left side. Seeker out over the viper wire. 2.0 Nimco inserted. Atherectomy of the Left SFA performed. Nimco advanced. Atherectomy of the Left SFA performed. Nimco out over the viper wire. Seeker inserted over the viper wire. Viper wire out. Glidewire inserted. Seeker out over the glidewire. Inflation number : 1 A AB Plain 35 TIRE MAN Catheter [id number] was prepped and advanced across the Superficial Femoral, Left , then inflated to 6 MARC for 1:35 seconds. Balloon advanced. Inflation number: 2 The AB Plain 35 TIRE MAN Catheter [id number] was reinflated across the Superficial Femoral, Left, to 6 MARC for 1:33 seconds. Balloon out over the wire. Left common iliac selected and arteriogram with runoff performed @ 10 mL/sec for a total of 30 mL. Inflation Number : 2 A AB OMNILINK STENT 7.0X59MM -Lot Number# [id number] was prepped and advanced across the Mid External Iliac, Left. The stent was deployed at 11 MARC for 0:48 seconds. EXP: 07/02/25. Stent balloon out over the wire. Sheath injected at 10 ml/sec for a total of 10 ml using DSA of the external iliac. Flexor sheath exchanged for a 6fr short sheath. Glidewire removed. Sheath injected in Right common femoral artery and runoff performed at 10 ml/sec for a total of 30 ml. Physician review of films. ACT drawn. Results 264 seconds. Therapeutic limits - pre-heparin administration 90-150 seconds and monitoring heparin during a vascular procedure >250 seconds. Physician scrubbed out. A Suture was successful obtaining hemostatsis at the Right Femoral artery insertion site. Sheath(s) sutured into position with 2-0 silk and sterile 4x4's and Op-site applied over the site. No oozing or signs and symptoms of hematoma noted. Arterial sheath flushed and connected to tranducer and pressure bag with heparinized saline. Post Procedure: Pulses reassessed and unchanged. PERRLA. Strong, equal hand carpet inspector bilaterally. No VTE prophylaxis required. Medication's Wasted: Nitro = , Heparin = 49.6 mg. Medication's Wasted: Heparin = 2000 units. Total IV fluids: 182 mL. Fluoro: 22:01. Contrast type used: Visipaque 320 mgI/mL, 200 mL bottle. [id number]. Post-op diagnosis: Severe Bilateral Peripheral Arterial Disease: S/P intervention of the left iliac artery and the left sfa. Complications: None. Estimated blood loss: 5mL-10mL. Responsiveness - Normal response to verbal stimuli; alert and oriented, PERRLA. Airway - Unaffected, no intervention required; spontaneous ventilation. Circulation: W/N/L, pulses unchanged. Nausea/Vomiting: No. Procedure completed. Patient transferred by bed to CPRU. Vital chart was stopped. Procedure Medications Start: 9:17 AM Stop: 9:17 AM Medication: Versed Amount: 1 mg Route: I.V. Start: 9:17 AM Stop: 9:17 AM Medication: Fentanyl Amount: 50 mcg Route: I.V. Start: 9:23 AM Stop: 9:23 AM Medication: Versed Amount: 1 mg Route: I.V. Start: 9:35 AM Stop: 9:35 AM Medication: Versed Amount: 1 mg Route: I.V. Start: 9:49 AM Stop: 9:49 AM Medication: Heparin Amount: 5000 units Route: I.V. Start: 9:53 AM Stop: 9:53 AM Medication: Versed 1 mg and Fentanyl 25 mcg Amount: 1 Route: I.V. Start: 10:11 AM Stop: 10:11 AM Medication: Versed Amount: 1 mg Route: I.V. Start: 10:16 AM Stop: 10:16 AM Medication: Heparin Amount: 2000 units Route: I.V. Start: 10:25 AM Stop: 10:25 AM Medication: Nitrogylcerin Amount: 400 mcg Route: I.A. Start: 10:26 AM Stop: 10:26 AM Medication: Versed 1 mg and Fentanyl 25 mcg Amount: 1 Route: I.V. Start: 10:42 AM Stop: 10:42 AM Medication: Brilinta Amount: 180 mg Route: P.O. I, the attending physician, have reviewed and verified all procedure medications. Yes, all medications given per verbal order History/Risk Factors Hypertension: Yes Dyslipidemia: Yes Peripheral Arterial Disease (PAD): Yes Myocardial Infarction (IL): Yes Obesity: No Renal Disease: No Tobacco Use: Former Prior Interventions PCI: Yes CABG: No Valve Surgery: No Date of PCI: 12/03/2018 Report Signatures Finalized by Jomar Grider MD on 10/14/2022 08:55 AM
[2022-10-01 09:00] LABS: Blood Urea Nitrogen 25 mg/dL (8-23); Carbon Dioxide 26 mmol/L (22-29); Chloride 107 mmol/L (98-107); Glomerular Filtration Rate 61.1 mL/min (90-130); Glucose 137 mg/dL (65-115); Osmolality Calculated 299 mOsm/kg (285-295); Sodium 141 mmol/L (136-145)
[2022-10-01 09:02] LABS: Anion Gap 12.5 (5-19); Potassium 4.5 mmol/L (3.5-5.1)
--- NOTE | 2022-10-01 11:21 | SUR.PHASEI ---
Received the patient back from the cardiac cath lab technologist at 1045 S/P intervention of the left lower extremity via cot. Patient drowsy from procedural sedation. Awakens easily to voice commands and is alert and orientated x 3. 6fr sheath intact to the right groin to a pressure bag. site soft with no bleeding or hematoma noted. dressing dry and intact. Spouse, daughter, grandson and Dr. Grider at bedside. NS infusing at 100mL/hr to right PIV. No other assessment changes noted at this time.
--- NOTE | 2022-10-01 12:32 | SUR.PHASEI ---
Patient transferred to [facility] via bed with Mat JOE Nguyen, NURSING COORDINATOR and Karen Joe RN. Bedside report to be given.
[2022-10-01 14:52] LABS: Partial Thromboplastin Time 41.5 SECONDS (23.9-36.7)
[2022-10-01] MEDS: fentaNYL 50 mcg/mL INJ 2mL IVP (15:11)
[2022-10-01] MEDS: ALPRAZolam 0.5 mg Tablet 0.25 MG PO (15:17)
[2022-10-01] MEDS: ticagrelor 90 mg Tablet PO (17:38)
--- NOTE | 2022-10-01 18:41 | PC.NURSE ---
50 mcg fentanyl given iv push prior to procedure.right femoral arterial sheath pulled at 1520.manual pressure applied x 20 min.vss throughout procedure.no hematoma formation noted.site dressed with 2x2 gauze and secured with biocclusive drsg.pt instructed in activity restrictions s/p sheath pull...and instructed to notify staff for any bleeding,pain,numbness..or for any concerns at all.pt verb understanding of instructions.pt tolerated procedure well.
[2022-10-01] MEDS: sodium chloride 0.9% 1,000 ML 100 ML IV (19:48)
[2022-10-01] MEDS: sertraline 50 mg Tablet PO (20:24)
[2022-10-01] MEDS: tamsulosin 0.4 mg Capsule PO (20:24)
[2022-10-01] MEDS: hyDRALAzine 50 mg Tablet PO (20:25)
[2022-10-02] VITALS (49 sets, daily range): BP systolic 133–149; BP diastolic 69–71; PULSE 58–79; RESP 0–23; TEMP 36.6–36.9; O2SAT 95–96
[2022-10-02 04:33] LABS: Basophils % 0.4 %; Eosinophils # 0.2 10^3/uL (0.0-0.8); Eosinophils % 3.4 %; Hematocrit 43.9 % (42.0-52.0); Hemoglobin 14.7 g/dL (11.7-16.6); Lymphocytes # 1.5 10^3/uL (0.8-4.8); Lymphocytes % 21.4 %; Mean Corpuscular HGB Conc 33.5 g/dL (30.0-36.0); Mean Corpuscular Hemoglobin 28.9 pg (28.0-34.0); Mean Corpuscular Volume 86.2 fl (80-94); Mean Platelet Volume 9.3 fL (7.4-10.4); Monocytes # 0.7 10^3/uL (0.2-0.9); Monocytes % 10.3 %; Neutrophils # 4.53 10^3/uL (1.8-7.7); Neutrophils % 63.9 %; Nucleated Red Blood Cells % 0 %; Platelet Count 169 10^3/cmm (130-400); Red Blood Count 5.09 10^6/uL (4.1-5.3); Red Cell Distribution Width 13.2 % (12.1-15.1); White Blood Count 7.1 10^3/uL (4.0-10.0)
[2022-10-02 05:22] LABS: Blood Urea Nitrogen 24 mg/dL (8-23); Calcium 10.4 mg/dL (8.5-10.5); Carbon Dioxide 24 mmol/L (22-29); Chloride 109 mmol/L (98-107); Creatinine Clr Calc Pharmacy 77.9003; Glomerular Filtration Rate 67.6 mL/min (90-130); Glucose 123 mg/dL (65-115); Osmolality Calculated 297 mOsm/kg (285-295); Sodium 141 mmol/L (136-145)
[2022-10-02 05:28] LABS: Anion Gap 12.4 (5-19)
[2022-10-02 05:29] LABS: Potassium 4.4 mmol/L (3.5-5.1)
--- NOTE | 2022-10-02 07:32 | P.DS_ITS ---
Discharge Providers Date of Admission: 10/01/22 12:35 Date of Discharge: October 02, 2022 Attending Provider at Admission: Jomar Grider M.D Attending Provider at Discharge: Jomar Grider M.D Primary Care Provider: JADIEL Mtz Reason for Visit Reason for Visit: Peripheral angiogram for severe lifestyle limiting Brief History: 62-year-old man with history of smoking, diabetes, hyperlipidemia, PAD has been referred from podiatry clinic secondary to severe, lifestyle limiting claudication symptoms bilaterally.? Patient had ABIs recently that showed significantly reduced LARISA value of 0.67 on right side and 0.58 on the left lower extremity.? He cannot walk more than 100 feet without having to stop. Hospital Course Hospital Course Patient underwent peripheral angiogram that showed severe bilateral peripheral artery disease. Underwent successful revascularization of left lower extremity with stent placement and left external iliac artery and orbital arthrectomy with balloon angioplasty of left SFA. He also had severe right SFA disease. We will plan for staged revascularization of the right lower extremity. Patient started on Xarelto 2.5 mg twice daily and Plavix. He will be followed up as outpatient. His labs stayed stable. Physical Exam Narrative: GENERAL: Patient is alert, awake and oriented x3. [] NECK: No jugular vein distension. [] HEENT: No cyanosis. No icterus. No pallor. [] HEART: Regular S1 and S2. No murmur, rub or gallop. [] LUNGS: Clear to auscultate bilaterally. [] ABDOMEN: Soft, nontender and nondistended. Positive bowel sounds. No guarding, rebound or tenderness. [] CENTRAL NERVOUS SYSTEM: Grossly nonfocal. [] EXTREMITIES: Lower extremities with 1+ edema bilaterally. PT pulses palpable left lower extremity. Discharge Data Studies Completed and Pending Pending at discharge Category Date Time Status IMPROVEMENT COORDINATOR request for service Routine Exams 10/01/22 08:30 Taken Laboratory Results WBC 7.1 10^3/uL (4.0-10.0) 10/02/22 04:01 RBC 5.09 10^6/uL (4.1-5.3) 10/02/22 04:01 Hgb 14.7 g/dL (11.7-16.6) 10/02/22 04:01 Hct 43.9 % (42.0-52.0) 10/02/22 04:01 MCV 86.2 fl (80-94) 10/02/22 04:01 MCH 28.9 pg (28.0-34.0) 10/02/22 04:01 MCHC 33.5 g/dL (30.0-36.0) 10/02/22 04:01 RDW 13.2 % (12.1-15.1) 10/02/22 04:01 Plt Count 169 10^3/cmm (130-400) 10/02/22 04:01 MPV 9.3 fL (7.4-10.4) 10/02/22 04:01 Neut % (Auto) 63.9 % 10/02/22 04:01 Lymph % (Auto) 21.4 % 10/02/22 04:01 Hettinger % (Auto) 10.3 % 10/02/22 04:01 Eos % (Auto) 3.4 % 10/02/22 04:01 Baso % (Auto) 0.4 % 10/02/22 04:01 Neut # (Auto) 4.53 10^3/uL (1.8-7.7) 10/02/22 04:01 Lymph # (Auto) 1.5 10^3/uL (0.8-4.8) 10/02/22 04:01 Hettinger # (Auto) 0.7 10^3/uL (0.2-0.9) 10/02/22 04:01 Eos # (Auto) 0.2 10^3/uL (0.0-0.8) 10/02/22 04:01 Baso # (Auto) 0.0 10^3/uL (0.0-0.1) 10/02/22 04:01 Nucleated RBC % (auto) 0 % 10/02/22 04:01 Nucleated RBCs # 0.0 /100WBC 10/02/22 04:01 APTT 41.5 SECONDS (23.9-36.7) H 10/01/22 14:00 Sodium 141 mmol/L (136-145) 10/02/22 04:01 Potassium 4.4 mmol/L (3.5-5.1) 10/02/22 04:01 Chloride 109 mmol/L (98-107) H 10/02/22 04:01 Carbon Dioxide 24 mmol/L (22-29) 10/02/22 04:01 Anion Gap 12.4 (5-19) 10/02/22 04:01 BUN 24 mg/dL (8-23) H 10/02/22 04:01 Creatinine 1.1 mg/dL (0.7-1.2) 10/02/22 04:01 GFR Calculation 67.6 mL/min (90-130) L 10/02/22 04:01 Glucose 123 mg/dL (65-115) H 10/02/22 04:01 POC Glucose 136 mg/dL (70-110) H 10/01/22 08:00 Calculated Osmolality 297 mOsm/kg (285-295) H 10/02/22 04:01 Calcium 10.4 mg/dL (8.5-10.5) 10/02/22 04:01 Vitals Last Vital Signs Temp 98.4 F 10/02/22 07:28 Pulse 66 10/02/22 07:28 Resp 16 10/02/22 07:28 BP 133/71 10/02/22 07:28 Pulse Ox 96 10/02/22 07:28 O2 Del Method 10/02/22 07:28 Discharge Plan Discharge Patient Disposition: Home Condition: Stable Prescriptions: New Xarelto 2.5 mg tablet 2.5 mg PO BID Qty: 120 1RF Continued sertraline 50 mg tablet 50 mg PO DAILY Qty: 30 2RF latanoprost 0.005 % drops 1 drop ophthalmic (eye) DAILY vitamins A,C,O-cwwv-jaifgg 1 tab PO DAILY Janumet 50-500 mg tablet 1 tab PO BID nitroglycerin 0.4 mg tablet, sublingual 0.4 mg SUBLINGUAL Q5M PRN (Reason: chest pain) Qty: 50 6RF Rx Instructions: do not exceed 3 doses per episode hydrocodone-acetaminophen 5-325 mg tablet 1 tab PO Q4H PRN (Reason: Pain) clopidogrel 75 mg tablet 75 mg PO DAILY Qty: 30 6RF pravastatin 40 mg tablet 40 mg PO DAILY Qty: 30 6RF metoprolol succinate 25 mg tablet extended release 24 hr 25 mg PO DAILY Qty: 30 6RF ascorbic acid (vitamin C) 500 mg tablet 500 mg PO DAILY tamsulosin [Flomax] 0.4 mg capsule 0.4 mg PO DAILY pantoprazole [Protonix] 40 mg tablet,delayed release (DR/EC) 40 mg PO DAILY diphenhydramine HCl [Allergy (diphenhydramine)] 25 mg capsule 25 mg PO TID PRN (Reason: Itching) cilostazol 50 mg tablet 50 mg PO BID Qty: 180 3RF amlodipine-benazepril 10-40 mg capsule 1 cap PO DAILY Qty: 90 1RF hydralazine 50 mg tablet 50 mg PO BID Qty: 180 3RF Discharge Orders: Discharge Order (Routine); Ordered 10/02/22 Ordered By: Jomar Grider Referrals: Chantal Wilkinson FNP [Nurse Practitioner] - 7-10 days Discharge Diet: Cardiac Patient Instructions: Peripheral Vascular Stent Placement (DC), Peripheral Vascular Angioplasty (DC), Opioid Safety Discharge Attestations Time Spent in Discharge Care*: less than 30 min Quality Metrics Clinical Quality Measures [ No reported AMI, CVA or VTE this stay] Coding Level of Care Code Acute Chg FW DC note
[2022-10-02] MEDS: ALPRAZolam 0.5 mg Tablet 0.25 MG PO (07:47)
--- NOTE | 2022-10-02 10:41 | PC.CHAP ---
Pastoral Care Encounter/Spiritual Assessment Type of Contact [] Declined inpatient auditor visit [] Patient/Family/Request visit [] Outpatient visit [] Follow-up visit [] Physician referral [] Code/Alert [] Routine visit [] Staff referral [] Actively dying [] Patient sleeping [] Family support [] [] Out of room [] Palliative care [] [] Receiving care in room [] Pre-surgical visit [] Trauma [] Long length of stay [] ICU visit [x] Other: dismissed Relational/Emotional Strength [] Patient feels connected with others/family/visitors/staff [] Distress [] Loneliness/isolation [] Abandonment Spirituality of Patient [] Person of Steffany [] Attends Protestant of their Steffany [] Believes in Prayer [] Reads Bible or Denominational materials [] There are Spiritual issues to be addressed It Engineer Interventions [] Prayer [] Active listening [] Non-anxious presence [] Spiritual/emotional support [] Crisis/trauma care [] Spiritual counseling [] Bereavement support [] Provided bereavement packet [] Provided Bible/devotional materials [] Provided toy/stuffed animal, coloring book to patient or family member [] Provided Communion [] Anointing/[place] [] Salvation [] Completed spiritual assessment [] Other: Impact on Illness or Injury [] Angry [] Fearful [] Anxious [] Often cries [] Exhaustion [] Unable to work [] Unable to attend restorationist [] Unable to walk/stand [] Unable to read [] Unable to drive [] Unable to eat/drink [] Unable to sleep [] Unable to be with family [] Patient intubated [] Other: Summary dismissed Time spent with patient 5 mins
--- NOTE | 2022-10-02 11:32 | PC.NURSE ---
Upon morning assesments at approximately 730. patient was agitated that he was still in the hospital, said that if he wasn't discharged soon he will just leaf. Patient was also upset that he never received his anxiety medication last night. Nurse administered prn xanax and explained to the patient that there are no discharge orders yet as the Physician wants to see him one last time. Around 0800, Dr Grider made rounds and said patient is good to discharge. NUrse removed the patient's IV and explained to the patient that he has to finish up with another patient and then will work on his discharge, nurse explained the discharge process of making an appointment with heart care for followup, education, and some paperwork. While this nurse was in a room with another patient, the patient left the facility at 0812. Patient's stayed behind and nurse reviewed discharge education with her. SHe did not want us to make the appointment with heart care because she wanted to go and said they will make it themselves. NUrse provided them with heart care contact information.
--- NOTE | 2022-10-14 16:03 | W.PM.OPSUD ---
Surgery/Procedure H&P Update DATE OF PROCEDURE: DATE H&P PERFORMED: 09/18/22 H&P UPDATE INFORMATION: I have reviewed H&P completed within last 30 days, I have examined patient prior to procedure and No changes to prior documentation PREOP DIAGNOSIS: Severe lifestyle limiting claudication PRIMARY INDICATION FOR PROCEDURE: Severe lifestyle limiting claudication PLANNED PROCEDURE: Operation Date: 10/01/22 08:30 Proposed Procedures p Periph Angiogram 77770,I73.9,I70.219,G62.9,M79.604,M79.605(Not Applicable) - Jomar Grider M.D Possible percutaneous peripheral intervention. PATIENT REASSESSED PRIOR TO SEDATION, WITH NO CHANGE NOTED: Yes PHYSICAL EXAM: alert, oriented x 3, clear to auscultation bilaterally and regular rate & rhythm AIRWAY EVAL/ANESTHESIA PLAN: ASA III, Local Anesthesia, Risks, benefits & alternatives of sedation and/or procedure discussed and Patient agrees to continue as planned ADDITIONAL INFORMATION: Moderate sedation
== END 2022-10-02 08:20 | disposition home or self-care (01) ==
LOC: CSU 12:35
PROVIDERS: Admitting Provider Internal Medicine; PCP Nurse Practitioner Family; Visit Provider Internal Medicine
DX: I70.203 Unspecified atherosclerosis of native arteries of extremities, bilateral legs (principal); E78.5 Hyperlipidemia, unspecified; Z87.891 Personal history of nicotine dependence; J44.9 Chronic obstructive pulmonary disease, unspecified; I25.10 Atherosclerotic heart disease of native coronary artery without angina pectoris; E11.22 Type 2 diabetes mellitus with diabetic chronic kidney disease; I12.9 Hypertensive chronic kidney disease with stage 1 through stage 4 chronic kidney disease, or unspecified chronic kidney disease; N18.9 Chronic kidney disease, unspecified; I25.2 Old myocardial infarction
CPT/HCPCS: 36415; 36416; 37221; 37227; 75625; 75716; 80048; 82962; 85025; 85347; 85730; 96361; 96365; 99152; 99153; C1724; C1725; C1769; C1876; C1887; C1894; G0378; J1644; J2250; J3010; J3490; J7030; Q0163; Q9967

== ENCOUNTER → 2022-10-13 09:16 | Outpatient (BNVA) | payer MEDICAID, SELFPAY | PROVIDERS: PCP Nurse Practitioner Family; Visit Provider Nurse Practitioner Family | DX: I73.9 Peripheral vascular disease, unspecified (principal) | CPT/HCPCS: 99214 ==

== ENCOUNTER 2022-10-22 10:21 | Outpatient (CLI) | payer MEDICAID, SELFPAY ==
[2022-10-22 11:24] LABS: Basophils % 0.4 %; Eosinophils # 0.3 10^3/uL (0.0-0.8); Eosinophils % 3.4 %; Hematocrit 49.6 % (42.0-52.0); Hemoglobin 16.4 g/dL (11.7-16.6); Lymphocytes # 2.3 10^3/uL (0.8-4.8); Lymphocytes % 28.2 %; Mean Corpuscular HGB Conc 33.1 g/dL (30.0-36.0); Mean Corpuscular Hemoglobin 28.8 pg (28.0-34.0); Mean Corpuscular Volume 87.2 fl (80-94); Mean Platelet Volume 8.7 fL (7.4-10.4); Monocytes # 0.7 10^3/uL (0.2-0.9); Monocytes % 8.9 %; Neutrophils # 4.79 10^3/uL (1.8-7.7); Neutrophils % 58.6 %; Nucleated Red Blood Cells % 0 %; Platelet Count 200 10^3/cmm (130-400); Red Blood Count 5.69 10^6/uL (4.1-5.3); Red Cell Distribution Width 13.4 % (12.1-15.1); White Blood Count 8.2 10^3/uL (4.0-10.0)
[2022-10-22 11:26] LABS: INR 1.08 (0.83-1.21); Prothrombin Time (Patient) 14.3 Seconds (12.0-15.1)
[2022-10-22 11:36] LABS: Blood Urea Nitrogen 23 mg/dL (8-23); Calcium 11.7 mg/dL (8.5-10.5); Carbon Dioxide 28 mmol/L (22-29); Chloride 102 mmol/L (98-107); Glomerular Filtration Rate 67.6 mL/min (90-130); Glucose 115 mg/dL (65-115); Osmolality Calculated 291 mOsm/kg (285-295); Sodium 138 mmol/L (136-145)
[2022-10-22 11:42] LABS: Anion Gap 12.5 (5-19); Potassium 4.5 mmol/L (3.5-5.1)
== END 2022-10-22 10:22 | disposition home or self-care (01) ==
LOC: LAB 10:24
PROVIDERS: Internal Medicine; PCP Nurse Practitioner Family; Visit Provider Nurse Practitioner Family
DX: I10 Essential (primary) hypertension (principal); R58 Hemorrhage, not elsewhere classified; N18.9 Chronic kidney disease, unspecified
CPT/HCPCS: 36415; 80048; 85025; 85610

== ENCOUNTER → 2022-12-09 14:15 | Outpatient (BNVA) | payer MEDICAID, SELFPAY | PROVIDERS: PCP Nurse Practitioner Family; Visit Provider Podiatrist Foot & Ankle Surgery | DX: E11.51 Type 2 diabetes mellitus with diabetic peripheral angiopathy without gangrene; E11.8 Type 2 diabetes mellitus with unspecified complications; L60.3 Nail dystrophy; Z79.4 Long term (current) use of insulin; I70.213 Atherosclerosis of native arteries of extremities with intermittent claudication, bilateral legs; M21.612 Bunion of left foot; M21.611 Bunion of right foot; M20.42 Other hammer toe(s) (acquired), left foot; M20.41 Other hammer toe(s) (acquired), right foot; B35.3 Tinea pedis | CPT/HCPCS: 11721 ==

== ENCOUNTER 2023-02-27 06:00 | Outpatient (CLI) | payer MEDICAID, SELFPAY ==
[2023-02-27] VITALS (35 sets, daily range): BP systolic 116–181; BP diastolic 56–102; PULSE 60–75; RESP 10–21; TEMP 36.6–36.9; O2SAT 90–98; BMI 25.0
--- NOTE | 2023-02-27 06:00 | XACV_ITS ---
Exam Room: 2 Ht: 183 cm Wt: 84 kg BSA: 2.07 m2 Gender: Male : 1960 Any Known Allergies: Other Exam Priority: Routine Procedure(s): Procedure Description: Diagnostic procedure Procedure Description: Peripheral Cath Diagnostic Procedure Procedure Description: Abdominal aortic angiography Procedure Description: Lower extremities' angiography Procedure Description: Peripheral vascular Intervention Procedure Description: PV Balloon Procedure Description: PV Atherectomy Procedure Description: Miscellaneous Procedure Description: ACT Abdominal Diagnostic Findings Distal abdominal aorta: Patent. Lower Extremity Diagnostic Findings INDICATION: 62-year-old man with past medical history of PAD has been having significant right lower extremity claudication symptoms. He had intervention of left lower extremity recently. Plan for staged revascularization of right lower extremity today. Right lower extremity findings: Right common iliac artery is patent. Right external iliac artery is patent. Right common femoral artery is patent. Right profunda artery is patent. Right SFA has severe, serial heavily calcified 80 to 90% lesions from ostial to distal SFA. Right renal artery is patent. Right anterior tibial artery is occluded. Right TP trunk is patent. Right TP segment stent is patent. Right peroneal artery and posterior tibial arteries are patent.. Left leg runoff not performed. Prior iliac stent is patent. Ostial SFA appears to have significant disease. Lower Extremity Interventional Findings Ostial to distal SFA has 80 to 90% stenosis. Stenosis treated with 6FR Lutonix [id number] drug coated balloon. Procedure detail:After diagnostic images, we decided to intervene on the right SFA. Short 6 Citizen Of [place] sheath from left common femoral artery access site was switched to long flexor sheath. This was parked in right external iliac artery. Using seeker support catheter and Glidewire we crossed ostial to distal SFA stenosis and was put in the popliteal artery. Through the seeker support catheter, we switched Glidewire to a Viper wire. Multiple runs of orbital atherectomy were performed. This was followed by balloon angioplasty with 6.0 drug-coated balloon. At this time performed final angiogram that showed excellent vessel expansion, no significant residual stenosis and brisk flow. Long flexor sheath was switched to short sheath. Patient left the Human Service Technician in a stable condition.. Conclusions Severe, heavily calcified right SFA disease s/p successful revascularization with orbital arthrectomy and balloon angioplasty.. Right ostial to distal-longitudinal Superficial Femoral Artery was treated with Balloon and arthrectomy. Recommendations Continue Xarelto and Plavix. Outpatient cardiology follow up in 2 weeks. Pressures Phase:Rest AO : 158 / 54 ( 92 ) @ 8:57:00 AM 145 / 55 ( 92 ) @ 9:12:00 AM 164 / 77 ( 113 ) @ 9:35:00 AM 157 / 71 ( 107 ) @ 9:40:00 AM Hemodynamic Data Phase:Rest AO : 158.0 / 54.0 ( 92.0 ) @ 8:57:00 AM 145.0 / 55.0 ( 92.0 ) @ 9:12:00 AM 164.0 / 77.0 ( 113.0 ) @ 9:35:00 AM 157.0 / 71.0 ( 107.0 ) @ 9:40:00 AM Clinical Evaluation EBL: 5mL-10mL Procedural Details Procedure Consent Obtained. Pre-Procedure Time Out. Identified patient by full name and date of as verbalized by the patient/guarantor. Does the consent match the physician's order: Yes. Accurate & Complete Informed Consent: Yes. Inpatient/Outpatient History & Physical on Chart: Yes. If H&P is completed, is and addenduem needed: Yes; If yes, is the addendum complete: Yes. Visualize and Verify Site with Patient/Guarantor: N/A. Relevant Radiology Images available: Yes. The risks, benefits, and alternatives of sedation and/or procedure were discussed by physician. The patient agrees to continue. Procedure started. Correct patient, site and procedure confirmed by cath team. PERRLA. Strong, equal hand route service manager bilaterally. Lungs clear x 5 lobes. IV Site on Arrival: 20 gauge in the right anticubital. IV Fluids: 0.9% NaCl at KVO. 0 mL infused prior to labor relations representative. Pre Procedural Pulses: bilateral dorsalis pedis was Doppled. Pre Procedural Pulses: bilateral posterior tibial was Doppled. Oxygen started at 2liters/min via nasal canula. bilateral groins was prepped with chloroprep then draped in the usual sterile fashion. Physician notified. Patient's spouse and daughter in CPRU room [address]. Dr[address] Grider will update at the completion of the procedure/. Equipment: 6F - Femoral. Cardiac Cath Pack. ACIST Manifold Kit Model BT 2000. Heparinized Saline (2 units/mL), 1000 mL bag. Kit, Micropuncture. Physician arrived. Physician scrubbed in. Immediate Pre-Procedure Time Out. Correct Patient: Yes; Correct Procedure: Yes; Correct Site: Yes; Correct Patient Position: Yes; Correct Supplies: Yes; Dried Flammable Prep: Yes; Blood Products Available: N/A;. Lidocaine 1% infiltrated to the left groin. Arterial access obtained with micropuncture set. Abdominal aortogram performed in AP @ 10 mL/sec for a total of 30 mL. Stiff angled glidewire in through the sheath. Sheath upsized to a 6 Fr. Seeker support catheter in over the glidewire & advanced to the tibial/peroneal trunk. Glidewire out. Viper guidewire in. Diamondback 360 Peripheral OAS 2.00mm x 145cm adalberto in and advanced OTW to the right SFA. Orbital Atherectomy performed from distal to proximal right SFA. OAS out OTW. Seeker support catheter in OTW. Viper guidewire out, glidewire in. Inflation number : 6FR Lutionix [id number] drug coated balloon was prepped and advanced across the Superficial Femoral, Right , then inflated to 6 MARC for 2:00 seconds. Inflation number: 2 The BARD 6FR Lutinox [id number] drug coated balloon was reinflated across the Superficial Femoral, Right, to 6 MARC for 1:33 seconds. Balloon out. Right common femoral selected and arteriogram with runoff performed @ 10 mL/sec for a total of 30 mL. Right common femoral selected and arteriogram with runoff performed @ 10 mL/sec for a total of 20 mL in DSA. ACT drawn. Results 381 seconds. Therapeutic limits - pre-heparin administration 90-150 seconds and monitoring heparin during a vascular procedure >250 seconds. Sheath upsized to a [address] Grider scrubbed out. A Suture was successful obtaining hemostatsis at the Right Femoral artery insertion site. Sheath(s) sutured into position with 2-0 silk and sterile 4x4's and Op-site applied over the site. No oozing or signs and symptoms of hematoma noted. Arterial sheath flushed and connected to tranducer and pressure bag with heparinized saline. Post Procedure: Pulses reassessed and unchanged. PERRLA. Strong, equal hand route service manager bilaterally. No VTE prophylaxis required. Medication's Wasted: Nitro = 49.8 mg. Medication's Wasted: Heparin = 2000 units. Total IV fluids: 853 mL. Post-op diagnosis: Critical right SFA stenosis s/p orbital atherectomy and drug coated ballooning. Complications: none. Estimated blood loss: 5mL-10mL. Responsiveness - Normal response to verbal stimuli; alert and oriented, PERRLA. Airway - Unaffected, no intervention required; spontaneous ventilation. Circulation: W/N/L, pulses unchanged. Nausea/Vomiting: No. Procedure completed. Patient transferred by bed to 1st floor. Vital chart was stopped. Access Site Site: Right Femoral artery Sheath Size: 6 Fr Hemostasis Method: Suture Hemostasis Success: Successful Procedure Medications Start: 7:38 AM Stop: 7:38 AM Medication: Fentanyl Amount: 50 mcg Route: I.V. Start: 7:46 AM Stop: 7:46 AM Medication: Versed Amount: 1 mg Route: I.V. Start: 7:58 AM Stop: 7:58 AM Medication: Versed Amount: 1 mg Route: I.V. Start: 8:21 AM Stop: 8:21 AM Medication: Versed Amount: 1 mg Route: I.V. Start: 8:22 AM Stop: 8:22 AM Medication: Fentanyl Amount: 25 mcg Route: I.V. Start: 8:22 AM Stop: 8:22 AM Medication: Heparin Amount: 6000 units Route: I.V. Start: 8:30 AM Stop: 8:30 AM Medication: Heparin Amount: 1000 units Route: I.V. Start: 8:31 AM Stop: 8:31 AM Medication: Versed Amount: 1 mg Route: I.V. Start: 8:31 AM Stop: 8:31 AM Medication: Fentanyl Amount: 25 mcg Route: I.V. Start: 8:39 AM Stop: 8:39 AM Medication: Nitrogylcerin Amount: 200 mcg Route: I.A. I, the attending physician, have reviewed and verified all procedure medications. Yes, all medications given per verbal order History/Risk Factors Hypertension: Yes Dyslipidemia: Yes Peripheral Arterial Disease (PAD): Yes Myocardial Infarction (MN): Yes Obesity: No Renal Disease: No Tobacco Use: Former Prior Interventions PCI: Yes CABG: No Valve Surgery: No Date of PCI: 12/03/2018 Report Signatures Finalized by Jomar Grider MD on 03/04/2023 05:38 PM
[2023-02-27 06:23] LABS: Glucose Point of Care 105 mg/dL (70-110)
[2023-02-27 06:33] LABS: Basophils % 0.5 %; Eosinophils # 0.3 10^3/uL (0.0-0.8); Eosinophils % 4.3 %; Hematocrit 49.3 % (42.0-52.0); Hemoglobin 16.2 g/dL (11.7-16.6); Lymphocytes % 25.4 %; Mean Corpuscular HGB Conc 32.9 g/dL (30.0-36.0); Mean Corpuscular Hemoglobin 27.9 pg (28.0-34.0); Mean Corpuscular Volume 84.9 fl (80-94); Monocytes # 0.8 10^3/uL (0.2-0.9); Monocytes % 10.5 %; Neutrophils # 4.63 10^3/uL (1.8-7.7); Neutrophils % 58.9 %; Nucleated Red Blood Cells % 0 %; Platelet Count 196 10^3/cmm (130-400); Red Blood Count 5.81 10^6/uL (4.1-5.3); Red Cell Distribution Width 13.2 % (12.1-15.1); White Blood Count 7.9 10^3/uL (4.0-10.0)
[2023-02-27] MEDS: diphenhydrAMINE 50 mg Capsule PO (06:38)
[2023-02-27 06:44] LABS: INR 0.97 (0.8-1.2)
[2023-02-27 06:51] LABS: Anion Gap 12.8 (5-19); Blood Urea Nitrogen 21 mg/dL (8-23); Calcium 10.8 mg/dL (8.5-10.5); Carbon Dioxide 26 mmol/L (22-29); Chloride 103 mmol/L (98-107); Creatinine Clr Calc Pharmacy 77.9003; Glomerular Filtration Rate 67.6 mL/min (90-130); Glucose 110 mg/dL (65-115); Osmolality Calculated 290 mOsm/kg (285-295); Potassium 3.8 mmol/L (3.5-5.1); Sodium 138 mmol/L (136-145)
[2023-02-27] MEDS: aspirin 325 mg Tablet PO (06:59)
--- NOTE | 2023-02-27 07:35 | W.PM.OPSFHP ---
Same Day Surgery H&P Indication for Procedure/HPI DATE OF PROCEDURE: February 27, 2023 CHIEF COMPLAINT/INDICATIONFOR SURGICAL PROCEDURE: Severe lifestyle limiting claudication PREOP DIAGNOSIS: Severe lifestyle limiting claudication PLANNED PROCEDURE: Operation Date: 02/27/23 07:00 Proposed Procedures p Peripheral Angio Right Leg 58898,I73.9,I70.213(Right) with percutaneous intervention- Jomar Grider M.D 62-year-old man with past medical history of PAD has been having significant right lower extremity claudication symptoms. He had intervention of left lower extremity recently. Plan for staged revascularization of right lower extremity today. Medications/Allergies* Home Medications Medication Instructions Recorded Confirmed Type latanoprost 0.005 % eye drops 1 drop ophthalmic (eye) DAILY 11/16/19 02/26/23 History vitamins A,C,M-nvii-eklztd 1 tab PO DAILY 11/16/19 02/26/23 History [PreserVision AREDS] sitagliptin phosphate 50 1 tab PO BID 04/26/21 02/26/23 History mg-metformin 500 mg tablet (Janumet) hydrocodone 5 mg-acetaminophen 325 1 tab PO Q4H PRN Pain 10/22/21 02/26/23 History mg tablet ascorbic acid (vitamin C) 500 mg 500 mg PO DAILY 09/18/22 02/26/23 History tablet diphenhydramine HCl 25 mg capsule 25 mg PO TID PRN Itching 09/18/22 02/26/23 History (Allergy (diphenhydramine)) pantoprazole 40 mg tablet,delayed 40 mg PO DAILY 09/18/22 02/26/23 History release (Protonix) tamsulosin 0.4 mg capsule (Flomax) 0.4 mg PO DAILY 09/18/22 02/26/23 History Allergies/Adverse Reactions Allergy/AdvReac Type Severity Reaction Status Date / Time butalbital Allergy Unknown Nausea Verified 02/26/23 10:31 [From Fiorinal-Codeine #3] vomiting caffeine Allergy Unknown Nausea Verified 02/26/23 10:31 [From Fiorinal-Codeine #3] vomiting codeine Allergy Unknown Nausea Verified 02/26/23 10:31 [From Fiorinal-Codeine #3] vomiting Current Medications: Generic Name Dose Route Start Last Admin Trade Name Freq PRN Reason Stop Dose Admin Sodium Chloride 1,000 mls @ 50 mls/hr 02/27/23 06:00 02/27/23 06:38 Sodium Chloride 0.9% IV 02/28/23 01:59 Not Given .Q20H ONE Pertinent History/Comorbid Conditions* Medical History (Updated 09/27/22 @ 21:12 by Jomar Grider M.D) Arteriosclerosis of both carotid arteries Chronic kidney disease COPD (chronic obstructive pulmonary disease) Coronary artery disease Diabetes mellitus Essential hypertension Hyperlipemia Myocardial infarct PAD (peripheral artery disease) PAD (peripheral artery disease) Pounding heartbeat Tobacco abuse Surgical History (Updated 01/17/20 @ 13:56 by Yoel Muir MD) H/O carotid endarterectomy H/O heart artery stent Family History (Updated 01/03/20 @ 09:07 by Teresa Salazar LPN) Diabetes Father Mother CAD (coronary artery disease) Father Cancer Hypertension Stroke Social History Smoking and tobacco status: never smoked Quit status (tobacco): has quit using tobacco Year quit tobacco: 2012 Alcohol intake: current Alcohol intake frequency: holidays/special occasions only Substance/Drug Use: never Pertinent Exam Findings alert, oriented x 3, clear to auscultation bilaterally and regular rate & rhythm Conscious Sedation Assessment PATIENT ASSESSED PRIOR TO SEDATION, WITH NO CHANGE NOTED: Yes AIRWAY EVAL/ANESTHESIA PLAN: normal airway, see other exam findings, ASA III, Local Anesthesia, Risks, benefits & alternatives of sedation and/or procedure discussed and Patient agrees to continue as planned ADDITIONAL INFORMATION: Moderate sedation Recommendations Surgery/Procedure today (Peripheral angiogram with intervention of right lower extremity) Coding Level of Care Code Acute Code for Chg Fwd Diagnoses
[2023-02-27] MEDS: sodium chloride 0.9% 1,000 ML 50 ML IV (09:27)
--- NOTE | 2023-02-27 10:22 | ECG_ITS ---
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 Measurements Intervals [place] Rate: 58 P: 76 MN: 165 QRS: -18 QRSD: 107 T: 67 QT: 408 QTc: 402 Interpretive Statements SINUS BRADYCARDIA LOW QRS VOLTAGE IN EXTREMITY LEADS [QRS DEFLECTION < 0.5 mV IN LIMB LEADS] ANTEROLATERAL MYOCARDIAL INFARCTION , OF INDETERMINATE AGE [40+ ms Q WAVE IN I/aVL/V3-V6] Compared to ECG 02/16/2020 13:24:03 Low QRS voltage now present Sinus rhythm no longer present Indeterminate axis no longer present Myocardial infarct finding still present Electronically Signed On 02-28-2023 16:52:17 CDT by Shonda Dupont M.D. [id number]
[2023-02-27 11:54] LABS: Partial Thromboplastin Time 82.2 SECONDS (23.9-36.7)
--- NOTE | 2023-02-27 11:57 | PC.NURSE ---
report given to JOE Castaneda at 4400
[2023-02-27 13:44] LABS: Partial Thromboplastin Time 38.5 SECONDS (23.9-36.7)
[2023-02-27] MEDS: fentaNYL 50 mcg/mL INJ 2mL IVP (14:28)
--- NOTE | 2023-02-27 15:00 | PC.NURSE ---
Sheath removed at 1420 with this nurse and Jacquie Santos RN. Pressure was held for approximately 10 min and then nurse lost control and switched places with JOE Dhillon. Manpower Development Specialist Manager palpated nurses in both feet. Patient was given fentanyl to ease pain. Pressure held for approximately 30 min. Small hematoma noted. Dr Grider notified. blood excised from hematoma. Dressing applied. Patient resting comfortably in bed. at bedside.
[2023-02-27 17:05] LABS: Glucose Point of Care 112 mg/dL (70-110)
--- NOTE | 2023-02-27 19:54 | P.SS_ITS ---
Short Stay Summary Providers Date of Admit/Discharge: 02/27/23 Attending Provider: Jomar Grider M.D Primary Care Provider: JADIEL Mtz Chief Complaint: I73.9 HPI History of Present Illness 62-year-old man with past medical history of PAD has been having significant right lower extremity claudication symptoms.? He had intervention of left lower extremity recently.? Plan for staged revascularization of right lower extremity today. Review of Systems Const: Reports: fatigue Card: Reports: palpitations, lightheadedness, dyspnea on exertion and leg pain with exertion; Denies: chest pain, irregular heart rhythm, swelling of feet/ankles or orthopnea Resp: Denies: dyspnea or productive cough Musc: Reports: neck pain and back pain Neuro: Denies: headache(s) or dizziness Psych: Denies: anxiety, depression, suicidal ideation or homicidal ideation Porter/Lymph: Reports: easy bruising and easy bleeding Home Meds/Allergies Home Medications and Allergies Home Medications Medication Instructions Recorded Confirmed Type latanoprost 0.005 % eye drops 1 drop ophthalmic (eye) DAILY 11/16/19 02/26/23 History vitamins A,C,O-ktxv-gqhfgp 1 tab PO DAILY 11/16/19 02/26/23 History [PreserVision AREDS] sitagliptin phosphate 50 1 tab PO BID 04/26/21 02/26/23 History mg-metformin 500 mg tablet (Janumet) hydrocodone 5 mg-acetaminophen 325 1 tab PO Q4H PRN Pain 10/22/21 02/26/23 History mg tablet ascorbic acid (vitamin C) 500 mg 500 mg PO DAILY 09/18/22 02/26/23 History tablet diphenhydramine HCl 25 mg capsule 25 mg PO TID PRN Itching 09/18/22 02/26/23 History (Allergy (diphenhydramine)) pantoprazole 40 mg tablet,delayed 40 mg PO DAILY 09/18/22 02/26/23 History release (Protonix) tamsulosin 0.4 mg capsule (Flomax) 0.4 mg PO DAILY 09/18/22 02/26/23 History Allergies Allergy/AdvReac Type Severity Reaction Status Date / Time butalbital Allergy Unknown Nausea Verified 02/26/23 10:31 [From Fiorinal-Codeine #3] vomiting caffeine Allergy Unknown Nausea Verified 02/26/23 10:31 [From Fiorinal-Codeine #3] vomiting codeine Allergy Unknown Nausea Verified 02/26/23 10:31 [From Fiorinal-Codeine #3] vomiting PFSH Acute PFSH: Medical History Arteriosclerosis of both carotid arteries Chronic kidney disease COPD (chronic obstructive pulmonary disease) Coronary artery disease Diabetes mellitus Essential hypertension Hyperlipemia Myocardial infarct PAD (peripheral artery disease) PAD (peripheral artery disease) Pounding heartbeat Tobacco abuse Surgical History H/O carotid endarterectomy H/O heart artery stent Family History Father Diabetes CAD (coronary artery disease) Mother Diabetes Other Cancer Hypertension Stroke Social History Smoking and tobacco status: never smoked Quit status (tobacco): has quit using tobacco Year quit tobacco: 2012 Alcohol intake: current Alcohol intake frequency: holidays/special occasions only Substance/Drug Use: never Vitals/I&O/Wt Last Vital Signs Temp 98.5 F 02/27/23 12:45 Pulse 65 02/27/23 16:30 Resp 10 L 02/27/23 16:30 BP 118/60 02/27/23 16:30 Pulse Ox 93 02/27/23 16:30 O2 Del Method Nasal Cannula 02/27/23 15:02 O2 Flow Rate 2 02/27/23 15:02 02/27/23 02/27/23 02/27/23 06:59 14:59 22:59 Intake Total 120 / 120 480 / 600 Output Total 550 / 550 Balance -430 / -430 480 / 50 Weight last 48 hrs Weight 185 lb Physical Exam Narrative: GENERAL: Patient is alert, awake and oriented x3. [] NECK: No jugular vein distension. [] HEENT: No cyanosis. No icterus. No pallor. [] HEART: Regular S1 and S2. No murmur, rub or gallop. [] LUNGS: Clear to auscultate bilaterally. [] ABDOMEN: Soft, nontender and nondistended. Positive bowel sounds. No guarding, rebound or tenderness. [] CENTRAL NERVOUS SYSTEM: Grossly nonfocal. [] EXTREMITIES: Lower extremities with no edema. Pulses are difficult to palpate. Hospital Course Hospital Course Peripheral angiogram showed severe ostial to distal SFA stenosis and underwent successful revascularization with orbital arthrectomy and balloon angioplasty. Patient did not want to stay overnight in the hospital for observation. He was discharged home in stable condition SSS Data Data Completed and Pending: Pending at discharge Category Date Time Status PERFORMANCE REPORTER request for service Routin e Exams 02/27/23 06:00 Ordered Discharge Plan Discharge Patient Disposition: Home Prescriptions: Continued sertraline 50 mg tablet 50 mg PO DAILY Qty: 30 2RF latanoprost 0.005 % drops 1 drop ophthalmic (eye) DAILY vitamins A,C,L-ypbf-whcqhw 1 tab PO DAILY Janumet 50-500 mg tablet 1 tab PO BID nitroglycerin 0.4 mg tablet, sublingual 0.4 mg SUBLINGUAL Q5M PRN (Reason: chest pain) Qty: 50 6RF Rx Instructions: do not exceed 3 doses per episode hydrocodone-acetaminophen 5-325 mg tablet 1 tab PO Q4H PRN (Reason: Pain) clopidogrel 75 mg tablet 75 mg PO DAILY Qty: 30 6RF pravastatin 40 mg tablet 40 mg PO DAILY Qty: 30 6RF ascorbic acid (vitamin C) 500 mg tablet 500 mg PO DAILY tamsulosin [Flomax] 0.4 mg capsule 0.4 mg PO DAILY pantoprazole [Protonix] 40 mg tablet,delayed release (DR/EC) 40 mg PO DAILY diphenhydramine HCl [Allergy (diphenhydramine)] 25 mg capsule 25 mg PO TID PRN (Reason: Itching) cilostazol 50 mg tablet 50 mg PO BID Qty: 180 3RF hydralazine 50 mg tablet 50 mg PO BID Qty: 180 3RF amlodipine-benazepril 10-40 mg capsule 1 cap PO DAILY Qty: 90 3RF metoprolol succinate 25 mg tablet extended release 24 hr 25 mg PO DAILY Qty: 90 1RF Held Xarelto 2.5 mg tablet 2.5 mg PO BID Qty: 180 3RF Hold Instructions: Resume on 02/28/23. Discharge Orders: Discharge Order (Routine); Ordered 02/27/23 Ordered By: Jomar Grider Referrals: Chantal Wilkinson FNP [Nurse Practitioner] - 03/11/23 9:15 am Diet: Cardiac Activity: Increase activity as tolerated Patient Instructions: Peripheral Vascular Angioplasty (DC), Opioid Safety Discharge Date/Time: 02/27/23 20:56 Attestations Medical Necessity Statement*: Care not expected to cross 2 midnights Time Spent in Patient Care*: less than 30 min Quality Metrics Clinical Quality Measures: [ No reported AMI, CVA or VTE this stay ] Coding Level of Care Code Acute Code for Chg Fwd Diagnoses
== END 2023-02-27 20:56 | disposition home or self-care (01) ==
LOC: CCL 06:00 → CSU 10:01
PROVIDERS: PCP Nurse Practitioner Family; Visit Provider Internal Medicine
DX: I70.213 Atherosclerosis of native arteries of extremities with intermittent claudication, bilateral legs (principal); R00.1 Bradycardia, unspecified; Z79.02 Long term (current) use of antithrombotics/antiplatelets; Z79.01 Long term (current) use of anticoagulants; E78.5 Hyperlipidemia, unspecified; I10 Essential (primary) hypertension; Z87.891 Personal history of nicotine dependence
CPT/HCPCS: 36415; 36416; 37224; 37225; 75625; 75716; 80048; 82962; 85025; 85347; 85610; 85730; 93005; 96361; 96365; 99152; 99153; C1724; C1769; C1887; C1894; C2623; G0378; J1644; J2250; J3010; J3490; J7030; Q0163; Q9967

== ENCOUNTER → 2023-03-19 13:02 | Outpatient (BNVA) | payer MEDICAID, SELFPAY | PROVIDERS: PCP Nurse Practitioner Family; Visit Provider Podiatrist Foot & Ankle Surgery | DX: I70.213 Atherosclerosis of native arteries of extremities with intermittent claudication, bilateral legs (principal); L60.3 Nail dystrophy; E11.51 Type 2 diabetes mellitus with diabetic peripheral angiopathy without gangrene; Z79.4 Long term (current) use of insulin; M21.612 Bunion of left foot; M21.611 Bunion of right foot; M20.42 Other hammer toe(s) (acquired), left foot; M20.41 Other hammer toe(s) (acquired), right foot | CPT/HCPCS: 11721 ==

== ENCOUNTER 2023-04-20 09:26 | Outpatient (CLI) | payer MEDICAID, SELFPAY ==
--- NOTE | 2023-04-20 09:37 | MR_ITS ---
WS: [id number] MRI LEFT SHOULDER HISTORY: L SHOULDER PAIN COMPARISON: Radiographs 04/07/2023 TECHNIQUE: Multiplanar sequences of the shoulder joint are submitted. Mild narrowing of the AC joint. Distal clavicle is inferiorly angulated encroaching upon the supraspi natus myotendinous insertion. No significant subacromial or subdeltoid bursal fluid. Marked subacromi al impingement upon the supraspinatus. Normal biceps tendon position. No os acromion. Increased T2 signal and mild thickening of the distal supraspinatus tendon. Hypertrophic changes invo lving the AC joint with downsloping of the distal clavicle encroaching upon the rotator cuff interval and the anterior most supraspinatus muscle. Subacromial impingement is also encroaching upon the sup raspinatus tendon. There is increased T2 signal which may be involving the articular surface of the s upraspinatus tendon. This is very closely associated with the humeral head cortex. Suspect there is a lso very superficial tears involving the articular surface of the supraspinatus tendon anteriorly. Th ere is no muscle atrophy. No edema. The remaining muscles of the rotator cuff are normal. Fraying along the surfaces of the anterior labrum but no definite tear is identified. MR/MR shoulder LT wo con* [id number] IMPRESSION: 1. Downsloping of the distal clavicle with encroachment upon the anterior most supraspinatus muscle and rotator cuff interval. There is a small amount of ass ociated edema within the soft tissues. 2. Marked subacromial impingement. 3. Increased T2 signal along the articular surface the distal supraspinatus te ndon following the curve of the humeral head. Suspect very superficial tears an d fraying along the distal anterior most supraspinatus tendon. No full-thicknes s tear. 4. No muscle atrophy or edema. 5. Supraspinatus tendinopathy.
== END 2023-04-20 09:27 | disposition home or self-care (01) ==
LOC: RAD 09:29
PROVIDERS: PCP Student in an Organized Health Care Education/Training Program; Visit Provider Nurse Practitioner Family
DX: I25.10 Atherosclerotic heart disease of native coronary artery without angina pectoris (principal); I12.9 Hypertensive chronic kidney disease with stage 1 through stage 4 chronic kidney disease, or unspecified chronic kidney disease; N18.9 Chronic kidney disease, unspecified; I73.9 Peripheral vascular disease, unspecified; R07.9 Chest pain, unspecified; E78.5 Hyperlipidemia, unspecified; Z86.73 Personal history of transient ischemic attack (TIA), and cerebral infarction without residual deficits; G62.9 Polyneuropathy, unspecified; J44.9 Chronic obstructive pulmonary disease, unspecified; E11.51 Type 2 diabetes mellitus with diabetic peripheral angiopathy without gangrene; Z79.4 Long term (current) use of insulin; E11.22 Type 2 diabetes mellitus with diabetic chronic kidney disease
CPT/HCPCS: 73221; 99214

== ENCOUNTER → 2023-04-27 13:53 | Outpatient (BNVA) | payer MEDICAID, SELFPAY | PROVIDERS: PCP Student in an Organized Health Care Education/Training Program; Referring Provider Family Medicine; Visit Provider Student in an Organized Health Care Education/Training Program | DX: M75.42 Impingement syndrome of left shoulder (principal) | CPT/HCPCS: 20610; 99204; J3301 ==

== ENCOUNTER → 2023-05-26 13:35 | Outpatient (BNVA) | payer MEDICAID, SELFPAY | PROVIDERS: PCP Student in an Organized Health Care Education/Training Program; Visit Provider Podiatrist Foot & Ankle Surgery | DX: E11.51 Type 2 diabetes mellitus with diabetic peripheral angiopathy without gangrene; L60.3 Nail dystrophy; Z79.4 Long term (current) use of insulin; I70.213 Atherosclerosis of native arteries of extremities with intermittent claudication, bilateral legs; B35.3 Tinea pedis; M21.612 Bunion of left foot; M21.611 Bunion of right foot; M20.42 Other hammer toe(s) (acquired), left foot; M20.41 Other hammer toe(s) (acquired), right foot | CPT/HCPCS: 11721 ==

== ENCOUNTER 2023-07-31 20:09 | Inpatient (IN) | payer MEDICAID, SELFPAY ==
--- NOTE | 2023-07-31 20:17 | XRR_ITS ---
PROCEDURE INFORMATION: Exam: XR Chest Exam date and time: 07/31/2023 8:38 PM Age: 63 years old Clinical indication: Cardiovascular condition or disease; Other: Atherosclerosis; Prior surgery; Surgery date: 6+ months; Patient HX: Productive cough; Fever; Cardiac stents x 5; Bilateral le vascular surgeries x several; Cad TECHNIQUE: Imaging protocol: Radiologic exam of the chest. Views: 1 view. COMPARISON: CR XR chest 1V portable [id number] 02/16/2020 11:10 AM FINDINGS: Lungs: Ill-defined opacity or infiltrate is seen involving the right lung, excluding right lung apex. This is more prominent in the lower right lung. Ill-defined opacity or infiltrate is seen mid left lung. These findings are new from prior exam. Findings suggest pneumonia, gltet-sjenlgx-hnhk-left. Pleural spaces: No pleural effusion or pneumothorax. Heart/Mediastinum: Upper limits of normal cardiac size. Vasculature: Mild calcification of the thoracic aorta. Bones/joints: A few old rib fractures on the left, chronic with prior exam. Small linear type chronic scar in the lower left lung with prior exam. XR/XR chest 1V portable [id number] IMPRESSION: Ill-defined opacity or infiltrate within the right lung, excluding right lung apex and more prominent lower right lung, along with mild ill-defined opacity or infiltrate in the mid left lung. Findings suggest wmdxb-xhblwkd-roos-left pneumonia. No associated effusion. Follow-up with treatment.
[2023-07-31 20:20] VITALS: BMI 24.4
--- NOTE | 2023-07-31 20:22 | W.ED.WEAKNES ---
HPI - Weakness General: Chief complaint: Nausea/Vomiting/Diarrhea Stated complaint: weakness, fever, N/V Time Seen by Provider: 07/31/23 20:10 Source: patient and EMS Mode of arrival: EMS Limitations: no limitations History of Present Illness: This patient was transported from his home by EMS. He apparently has had increasing cough fever weakness over the last 3 days. No known exposure to infectious disease, no recent travel. does have a history of COPD but no home oxygen use. Does chew tobacco but does not smoke tobacco. Has had decreased oral intake and some vomiting today without abdominal pain. He has a history of coronary artery disease and had stents placed but again denies any ongoing chest pain only when he coughs. He has not been immunized against COVID or influenza. He did have a stumble and fell striking his left forearm against a door but did not strike his head or suffer any other injuries. MD Complaint: generalized weakness Context: recent illness Associated symptoms: Reports chills, easy bruising, fever(s) and vomiting; Denies chest pain, dysuria, headache(s), nausea or syncope Review of Systems Const: Reports: fever(s), chills, body aches and change in appetite Eyes: Denies: change in vision ENMT: Denies: throat pain, odynophagia, nasal discharge or nasal congestion Card: Denies: chest pain, palpitations, irregular heart rhythm, syncope or pre-syncope Resp: Reports: productive cough GI: Reports: vomiting; Denies: abdominal pain, nausea or diarrhea : Denies: flank pain, difficulty urinating or dysuria Musc: Denies: neck pain, back pain, extremity pain or extremity swelling Skin/Breast: Denies: rash Neuro: Denies: headache(s), numbness in extremities or weakness in extremities Porter/Lymph: Reports: easy bruising and easy bleeding PFSH ED PFSH: Medical History Arteriosclerosis of both carotid arteries Chronic kidney disease COPD (chronic obstructive pulmonary disease) Coronary artery disease Diabetes mellitus Essential hypertension Hyperlipemia Myocardial infarct PAD (peripheral artery disease) PAD (peripheral artery disease) Pounding heartbeat Tobacco abuse Surgical History H/O carotid endarterectomy H/O heart artery stent Family History Father Diabetes CAD (coronary artery disease) Mother Diabetes Other Cancer Hypertension Stroke Social History Smoking and tobacco status: never smoked Quit status (tobacco): has quit using tobacco Year quit tobacco: 2012 Alcohol intake: current Alcohol intake frequency: holidays/special occasions only Substance/Drug Use: never Physical Exam Narrative: EXAM NARRATIVE: Patient appears ill but is in no acute distress and able to answer questions appropriately in a goal-directed fashion. Const: COMMON NORMALS: average body habitus and patient oriented x3 GENERAL APPEARANCE: cooperative and disheveled ORIENTATION/CONSCIOUSNESS: Yes awake, Yes oriented to person and Yes oriented to place HENMT: COMMON NORMALS: normocephalic and Normal nasal mucous membranes and turbinates present HEAD & SCALP: normocephalic FACE & SINUS: normal facial exam and face symmetric NOSE: Normal nasal mucous membranes and turbinates present Eye: COMMON NORMALS: Equal, round and reactive pupils present, EOMs intact bilaterally and conjunctivae normal CONJUNCTIVA: Yes conjunctivae normal PUPIL: Yes Equal, round and reactive pupils present Neck/C-Spine: COMMON NORMALS: full ROM, no lymphadenopathy, supple and no JVD Chest: COMMONS NORMALS: normal inspection of the chest Resp: EFFORT & INSPECTION: Yes able to speak in complete sentences and Yes symmetric chest movement AUSCULTATION: crackles and rhonchi Cardio: COMMON NORMALS: no JVD, regular rate, regular rhythm, No murmurs present (Cardio) and Peripheral pulses 2+ throughout RATE: regular rate RHYTHM: regular rhythm PERIPHERAL PULSES: Peripheral pulses 2+ throughout GI: COMMON NORMALS: Normal to inspection, nondistended, normoactive bowel sounds present, Soft to palpation and non-tender PALPATION: Yes Soft to palpation : COMMON NORMALS: Yes no CVA tenderness BLADDER/KIDNEY EXAM: Yes no CVA tenderness Back/Pelvis: COMMON NORMALS: no CVA tenderness, thoracic and lumbar spine normal to inspection, no thoracic nor lumbar tenderness and thoraco-lumbar ROM normal Extremity: COMMON NORMALS: normal to inspection, full ROM, no calf tenderness and no pedal edema Neuro: COMMON NORMALS: patient oriented x3, moves all extremities, no focal motor deficits and no sensory deficits noted SENSORIUM/ORIENTATION: Yes oriented to person and Yes oriented to place Psych: COMMON NORMALS: mental status grossly normal Skin: COMMON NORMALS: no rashes or lesions noted and turgor normal SKIN IMAGES (MALE): 1. Abrasion no active bleeding GENERAL SKIN EXAM: no rashes or lesions noted and turgor normal TRAUMA: abrasion (Left proximal forearm) Course Reevaluation(s): Reevaluation #1: Discussed findings with the patient and family who are now present. Certainly has evidence of right-sided pneumonia with perhaps some left-sided involvement as well. Has a elevation in his BNP without any known history of congestive heart failure without any acute EKG changes and or other associated cardiac symptoms. He has evidence of mild AKA which is likely related to poor intake over the past several days. We will go ahead and continue current therapy and discuss admission with the hospitalist. Also informed the patient and the family of the need for continued aggressive care of his condition. Time: 21:57 Consultations: Consultation #1: Discussed with Dr. Boles attending hospitalist who agreed to admit the patient. Vital Signs: Vital signs: Vital Signs Temperature 98.8 F 07/31/23 20:24 Pulse Rate 115 H 07/31/23 20:24 Respiratory Rate 30 H 07/31/23 20:24 Blood Pressure 151/71 07/31/23 20:24 Pulse Oximetry 90 07/31/23 21:13 Oxygen Delivery Me thod Nasal Cannula 07/31/23 21:13 Oxygen Flow Rate 3 07/31/23 21:13 [facility] - Weakness Medical Decision Making This patient was transported by home via EMS. History of several days of feeling ill with productive cough decreased oral intake. Did have a fall without head injury today. He did suffer a contusion to his left forearm. Contributory history is that he has COPD which is nonoxygen requiring as well as a history of coronary disease. EMS noted a temperature of 101.5 during transport as well as O2 sats in the 80% on room air and was corrected easily with 2 to 3 L of oxygen. Clinical exam upon arrival revealed him to be borderline tachycardic without any arrhythmias. He was ill-appearing but alert and able to interact appropriately. Lung examination revealed crackles predominantly on the right side with decreased breath sounds at the bases bilaterally. No other significant clinical findings other than area of abrasion to his left elbow without any deformity and normal range of motion. Work-up ensued to establish potential etiologies of his infection. Chest x-ray was remarkable for infiltrative process predominantly on the right side. He had an associated leukocytosis as well as a BNP elevation with normal heart size and no ischemic changes on resting EKG. His lactate was reassuring his COVID test was negative. Most consistent with a community associated pneumonia superimposed on COPD and unclear whether he has concomitant mild pulmonary congestion. He was loaded with appropriate antibiotics for broad-spectrum coverage, IV fluids, troponin requested. He did require supplemental oxygen in addition but corrected easily with 2 to 3 L via nasal cannula. It was felt that he benefit from inpatient therapy based on pneumonia severity index. No evidence of acute ischemia at this time of sepsis etc. Medical Records I reviewed the patient's medical records. Prior COPD history. Lab Data I reviewed the patient's lab results. 07/31/23 20:30 07/31/23 20:30 Radiology Impressions Chest X-Ray 07/31/23 20:17 IMPRESSION: Ill-defined opacity or infiltrate within the right lung, excluding right lung apex and more prominent lower right lung, along with mild ill-defined opacity or infiltrate in the mid left lung. Findings suggest krhzw-ofszzyx-vdtl-left pneumonia. No associated effusion. Follow-up with treatment. Laboratory Results WBC 14.41 10^3/uL (3.29-11.43) H 07/31/23 20: RBC 4.79 10^6/uL (3.85-5.65) 07/31/23 20: Hgb 13.30 g/dL (11.27-16.99) 07/31/23 20: Hct 40.3 % (37-53) 07/31/23 20: MCV 84.1 fl (82-101) 07/31/23 20: MCH 27.8 pg (27-33) 07/31/23 20: MCHC 33.0 g/dL (30-55) 07/31/23 20: RDW 13.2 % (12.1-15.1) 07/31/23 20: Plt Count 210 10^3/cmm (157-399) 07/31/23 20: MPV 9.0 fL (7.4-10.4) 07/31/23 20: Neut % (Auto) 86.9 % 07/31/23 20:30 Lymph % (Auto) 4.7 % 07/31/23 20:30 [place] % (Auto) 7.3 % 07/31/23 20:30 Eos % (Auto) 0.1 % 07/31/23 20:30 Baso % (Auto) 0.3 % 07/31/23 20:30 Neut # (Auto) 12.53 10^3/uL (1.8-7.7) H 07/31/23 20:30 Lymph # (Auto) 0.7 10^3/uL (0.8-4.8) L 07/31/23 20:30 [place] # (Auto) 1.1 10^3/uL (0.2-0.9) H 07/31/23 20:30 Eos # (Auto) 0.0 10^3/uL (0.0-0.8) 07/31/23 20:30 Baso # (Auto) 0.0 10^3/uL (0.0-0.1) 07/31/23 20: Nucleated RBC % (auto) 0 % 07/31/23 20: Nucleated RBCs # 0.0 /100WBC 07/31/23 20:30 Sodium 131 mmol/L (136-145) L 07/31/23 20:30 Potassium 4.4 mmol/L (3.5-5.1) 07/31/23 20:30 Chloride 99 mmol/L (98-107) 07/31/23 20: Carbon Dioxide 22 mmol/L (22-29) 07/31/23 20: Anion Gap 14.4 (5-19) 07/31/23 20:30 BUN 33 mg/dL (8-23) H 07/31/23 20:30 Creatinine 1.8 mg/dL (0.7-1.2) H 07/31/23 20:30 GFR Calculation 38.2 mL/min (90-130) L 07/31/23 20: Glucose 214 mg/dL (65-115) H 07/31/23 20:30 Calculated Osmolality 286 mOsm/kg (285-295) 07/31/23 20:30 Lactic Acid 1.3 mmol/L (0.5-2.2) 07/31/23 20: Calcium 10.5 mg/dL (8.5-10.5) 07/31/23 20:30 Total Bilirubin 0.8 mg/dL (0.15-1.2) 07/31/23 20:30 AST 14 U/L (0-40) 07/31/23 20:30 ALT 12 U/L (0-41) 07/31/23 20:30 Alkaline Phosphatase 64 U/L (40-130) 07/31/23 20:30 NT-Pro-B Natriuret Pep 940 pg/mL (0-125) H 07/31/23 20:30 Total Protein 7.0 g/dL (6.6-8.7) 07/31/23 20:30 Albumin 3.5 g/dL (3.5-5.2) 07/31/23 20: Globulin 3.5 g/dL (1.3-4.6) 07/31/23 20:30 SARS-CoV-2 Ag (Rapid) negative (Negative) 07/31/23 21:12 All radiology interpretation(s) finalized by discharge ED provider radiology interpretation(s): Chest x-ray reveals right middle lobe infiltrative process. EKG Data EKG 1: I personally reviewed and interpreted this EKG as follows: Interpretation: Initial EKG revealed a ventricular rate of 112 bpm consistent with sinus tachycardia. [place] interval, QRS duration, corrected QT interval are normal. Normal axis. Does have Q waves inferiorly to 3 and aVF suggestive of remote inferior wall VA. No acute ST-T wave changes at this time. Discharge Plan Discharge Patient Disposition: Admitted As Inpatient Clinical Impression: Pneumonia involving right lung, Fluid volume depletion Condition: Stable Coding Level of Care Code ED Operations Intelligence Superintendent for Darrius Obregon
[2023-07-31 20:24] VITALS: BP 151/71; PULSE 115; RESP 30; TEMP 37.1; O2SAT 93
[2023-07-31 20:39] LABS: Basophils % 0.3 %; Eosinophils % 0.1 %; Hematocrit 40.3 % (37-53); Lymphocytes # 0.7 10^3/uL (0.8-4.8); Lymphocytes % 4.7 %; Mean Corpuscular Hemoglobin 27.8 pg (27-33); Mean Corpuscular Volume 84.1 fl (82-101); Monocytes # 1.1 10^3/uL (0.2-0.9); Monocytes % 7.3 %; Neutrophils # 12.53 10^3/uL (1.8-7.7); Neutrophils % 86.9 %; Nucleated Red Blood Cells % 0 %; Platelet Count 210 10^3/cmm (157-399); Red Blood Count 4.79 10^6/uL (3.85-5.65); Red Cell Distribution Width 13.2 % (12.1-15.1); White Blood Count 14.41 10^3/uL (3.29-11.43)
[2023-07-31] MEDS: sodium chloride 0.9% 1,000 ML 999 ML IV (20:50)
[2023-07-31 20:56] LABS: Lactic Sepsis W/Reflex 1.3 mmol/L (0.5-2.2)
--- NOTE | 2023-07-31 21:04 | ECG_ITS ---
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 Measurements Intervals [place] Rate: 112 P: 49 [place]: 155 QRS: 19 QRSD: 105 T: 36 QT: 306 QTc: 418 Interpretive Statements SINUS TACHYCARDIA Compared to ECG 02/27/2023 10:29:44 Sinus bradycardia no longer present Myocardial infarct finding no longer present Electronically Signed On 08-01-2023 9:37:20 CDT by Jomar Grider M.D. [id number]
[2023-07-31 21:07] LABS: Alanine Aminotransferase 12 U/L (0-41); Albumin Level 3.5 g/dL (3.5-5.2); Alkaline Phosphatase 64 U/L (40-130); Anion Gap 14.4 (5-19); Aspartate Amino Transferase 14 U/L (0-40); Blood Urea Nitrogen 33 mg/dL (8-23); Calcium 10.5 mg/dL (8.5-10.5); Carbon Dioxide 22 mmol/L (22-29); Chloride 99 mmol/L (98-107); Globulin 3.5 g/dL (1.3-4.6); Glomerular Filtration Rate 38.2 mL/min (90-130); Glucose 214 mg/dL (65-115); NT Pro B Type Natriuretic Pept 940 pg/mL (0-125); Osmolality Calculated 286 mOsm/kg (285-295); Potassium 4.4 mmol/L (3.5-5.1); Sodium 131 mmol/L (136-145); Total Bilirubin 0.8 mg/dL (0.15-1.2)
[2023-07-31] MEDS: acetaminophen 325 mg Tablet 650 MG PO (21:08)
[2023-07-31] MEDS: cefTRIAXone 2,000 MG in sodium chloride 0.9% (plus) 50 ML 100 MG IV (21:11)
[2023-07-31 21:13] VITALS: O2SAT 90
[2023-07-31 21:35] LABS: SARS Covid-2 Antigen negative (Negative)
[2023-07-31 22:00] VITALS: TEMP 37
[2023-07-31 22:29] LABS: Troponin T (5th) Once 362 ng/L (0-15)
[2023-07-31 22:51] LABS: ABG PCO2 35.8 mmHg (35-45); Arterial Blood Gas Hematocrit 39.8 % (42-52); Base Excess ABG -2.5 mmol/L (-2.0-2.0); Blood Gas Allen Test Pos; Blood Gas Sample Type Arterial; Carboxyhemoglobin 1.1 %THgb (0.4-20.1); HCO3 ABG 21.9 mmol/L (22-26); HGB O2 Sat 88.1 % (95-100); Ionized Calcium Level - ABG 1.4 mmol/L (1.1-1.4); Methemoglobin 0.4 % (0.4-1.5); Oxygen Saturation ABG 89.4; PO2 ABG 55.5 mmHg (80.0-100.0); Potassium Level - ABG 4.2 mmol/L (3.5-5.0)
[2023-07-31 22:52] VITALS: PULSE 110; RESP 14; O2SAT 94
[2023-07-31 22:52] LABS: Alveolar-Arterial Oxygen Gradi 27.8 mmHg (5-10); Blood Gas Operator Identificat BD; Blood Gas Sample Site Brachial, right; Oxygen Device NC
[2023-07-31] MEDS: sodium chloride 0.9% 1,000 ML 125 ML IV (22:58)
[2023-07-31] MEDS: azithromycin 500 MG in sodium chloride 0.9% 250 ML 250 MG IV (22:59)
--- NOTE | 2023-07-31 23:06 | CTR_ITS ---
PROCEDURE INFORMATION: Exam: CT Chest Without Contrast; Diagnostic Exam date and time: 07/31/2023 11:41 PM Age: 63 years old Clinical indication: Dyspnea and shortness of breath; Prior surgery; Surgery date: 6+ months; Surgery type: Cardiac stents; Additional info: SOB TECHNIQUE: Imaging protocol: Diagnostic computed tomography of the chest without contrast. Radiation optimization: All CT scans at this facility use at least one of these dose optimization techniques: automated exposure control; mA and/or kV adjustment per patient size (includes targeted exams where dose is matched to clinical indication); or iterative reconstruction. REPORTING DATA: Count of CT and Cardiac NM exams in prior 12 months: This patient has received 0 known CTs and 0 known cardiac nuclear medicine studies in the 12 months prior to the current study. COMPARISON: CR (CHEST, ) 07/31/2023 8:38 PM RADIATION DOSE METRICS: Total DLP (mGy-cm): 486.68 FINDINGS: Lungs: Patchy bilateral largely upper lobe airspace infiltrates. Emphysematous changes. Pleural spaces: Trace right pleural effusion. Heart: Cardiomegaly. Coronary arteries: Coronary artery atherosclerotic calcifications. Lymph nodes: Scattered prominent mediastinal lymph nodes measuring up to 12.8 mm, nonspecific. Vasculature: Ascending thoracic aorta dilated to 4.4 cm. Bones/joints: Unremarkable. No acute fracture. Soft tissues: Unremarkable. CT/CT chest wo con [id number] IMPRESSION: 1. Patchy bilateral largely upper lobe airspace infiltrates. 2. Emphysematous changes. 3. Ascending thoracic aorta dilated to 4.4 cm. 4. Cardiomegaly. 5. Coronary artery atherosclerotic calcifications. 6. Scattered prominent mediastinal lymph nodes measuring up to 12.8 mm, nonspecific. 7. Trace right pleural effusion. COMMENTS: In the absence of a history or active diagnosis of lung cancer, it is recommended that this patient with emphysema be evaluated for enrollment in a low dose CT lung cancer screening program.
--- NOTE | 2023-07-31 23:08 | PM.HP ---
Providers/Chief Complaint Admitting Physician: Oswaldo Guerrero MD Primary Care Provider: JADIEL Mtz Chief Complaint: weakness, fever, N/V History of Present Illness Riccardo Dumont is a 63 year old male Review of Systems Const: Reports: fever(s), chills, body aches, change in appetite, change in weight, fatigue and malaise Eyes: Denies: change in vision Card: Reports: palpitations and dyspnea on exertion; Denies: chest pain Resp: Reports: dyspnea and productive cough GI: Denies: abdominal pain : Denies: flank pain Musc: Denies: neck pain or back pain Skin/Breast: Denies: rash Neuro: Reports: headache(s), numbness in extremities and weakness in extremities Endo: Denies: polyuria Medications/Allergies Home Medications Medication Instructions Recorded Confirmed Last Taken Type latanoprost 0.005 % eye drops 1 drop ophthalmic (eye) DAILY 11/16/19 05/26/23 02/27/23 05:30 History vitamins A,C,A-nuya-ysqqzp 1 tab PO DAILY 11/16/19 05/26/23 02/27/23 05:30 History [PreserVision AREDS] sertraline 50 mg tablet 50 mg PO DAILY #30 tabs 04/24/20 05/26/23 10/01/22 06:30 Rx sitagliptin phosphate 50 1 tab PO BID 04/26/21 05/26/23 02/27/23 05:30 History mg-metformin 500 mg tablet (Janumerolando) clopidogrel 75 mg tablet 75 mg PO DAILY #30 tabs 10/22/21 05/26/23 02/27/23 05:30 Rx hydrocodone 5 mg-acetaminophen 325 1 tab PO Q4H PRN Pain 10/22/21 05/26/23 10/01/22 06:30 History mg tablet nitroglycerin 0.4 mg sublingual 0.4 mg sublingual Q5M PRN chest 10/22/21 05/26/23 Unknown Rx tablet pain #50 tabs pravastatin 40 mg tablet 40 mg PO DAILY #30 tabs 10/22/21 05/26/23 02/27/23 05:30 Rx ascorbic acid (vitamin C) 500 mg 500 mg PO DAILY 09/18/22 05/26/23 02/27/23 05:30 History tablet cilostazol 50 mg tablet 50 mg PO BID #180 tabs 09/18/22 05/26/23 02/27/23 05:30 Rx diphenhydramine HCl 25 mg capsule 25 mg PO TID PRN Itching 09/18/22 05/26/23 Unknown History (Allergy (diphenhydramine)) pantoprazole 40 mg tablet,delayed 40 mg PO DAILY 09/18/22 05/26/23 02/27/23 05:30 History release (Protonix) tamsulosin 0.4 mg capsule (Flomax) 0.4 mg PO DAILY 09/18/22 05/26/23 02/27/23 05:30 History amlodipine 10 mg-benazepril 40 mg 1 cap PO DAILY #90 caps 10/16/22 05/26/23 02/27/23 05:30 Rx capsule rivaroxaban 2.5 mg tablet (Xarelto) 2.5 mg PO BID #180 tabs 02/03/23 05/26/23 02/24/23 20:00 Rx metoprolol succinate 25 mg 25 mg PO DAILY #90 tabs 05/14/23 05/26/23 Unknown Rx tablet,extended release 24 hr hydralazine 50 mg tablet 50 mg PO BID #180 tabs 06/29/23 Unknown Rx Allergies Allergy/AdvReac Type Severity Reaction Status Date / Time butalbital Allergy Unknown Nausea Verified 05/26/23 13:42 [From Fiorinal-Codeine #3] vomiting caffeine Allergy Unknown Nausea Verified 05/26/23 13:42 [From Fiorinal-Codeine #3] vomiting codeine Allergy Unknown Nausea Verified 05/26/23 13:42 [From Fiorinal-Codeine #3] vomiting PFSH Acute PFSH: Medical History Arteriosclerosis of both carotid arteries Chronic kidney disease COPD (chronic obstructive pulmonary disease) Coronary artery disease Diabetes mellitus Essential hypertension Hyperlipemia Myocardial infarct PAD (peripheral artery disease) PAD (peripheral artery disease) Pounding heartbeat Tobacco abuse Surgical History H/O carotid endarterectomy H/O heart artery stent Family History Father Diabetes CAD (coronary artery disease) Mother Diabetes Other Cancer Hypertension Stroke Social History Smoking and tobacco status: never smoked Quit status (tobacco): has quit using tobacco Year quit tobacco: 2012 Alcohol intake: current Alcohol intake frequency: holidays/special occasions only Substance/Drug Use: never Vitals/I&O/Wt Last Vital Signs Temp 98.8 F 07/31/23 20:24 Pulse 110 H 07/31/23 22:52 Resp 30 H 07/31/23 20:24 BP 151/71 07/31/23 20:24 Pulse Ox 94 07/31/23 22:52 O2 Del Method Nasal Cannula 07/31/23 21:13 O2 Flow Rate 3 07/31/23 21:13 FiO2 40 07/31/23 22:52 07/31/23 07/31/23 08/01/23 14:59 22:59 06:59 Intake Total 1050 / 1050 Balance 1050 / 1050 Weight last 48 hrs Weight 81.647 kg Physical Exam Const: COMMON NORMALS: no acute distress and patient oriented x3 GENERAL APPEARANCE: cooperative, well kempt and well developed HENMT: COMMON NORMALS: normocephalic, Normal external nose present and oropharynx normal HEAD & SCALP: normocephalic Eye: COMMON NORMALS: Equal, round and reactive pupils present, EOMs intact bilaterally, conjunctivae normal and no scleral icterus PUPIL: Yes Equal, round and reactive pupils present Neck/C-Spine: COMMON NORMALS: full ROM, no lymphadenopathy, no JVD, Thyroid normal and No carotid bruits THYROID: Thyroid normal Lymph: LYMPHATIC: no lymphadenopathy noted Chest: COMMONS NORMALS: normal inspection of the chest Resp: EFFORT & INSPECTION: Yes tachypneic, Yes Actively coughing, Yes retractions intercostal, Yes uses accessory muscles and Yes audible wheezes AUSCULTATION: wheezes Cardio: COMMON NORMALS: no JVD, S1 normal heart sound present, S2 normal heart sound present, No murmurs present (Cardio) and Peripheral pulses 2+ throughout RATE: tachycardic RHYTHM: regular rhythm HEART SOUNDS: S1 normal heart sound present and S2 normal heart sound present PERIPHERAL PULSES: Peripheral pulses 2+ throughout GI: COMMON NORMALS: Normal to inspection, nondistended, normoactive bowel sounds present, Soft to palpation and non-tender : BLADDER/KIDNEY EXAM: Yes no CVA tenderness Back/Pelvis: COMMON NORMALS: no CVA tenderness Extremity: COMMON NORMALS: normal to inspection, full ROM, no calf tenderness and no pedal edema Neuro: COMMON NORMALS: patient oriented x3, CN's II-XII intact bilaterally, moves all extremities, no focal motor deficits and no sensory deficits noted Psych: COMMON NORMALS: mental status grossly normal, Normal thought process present, cooperative and speech normal APPEARANCE: Yes well kempt SPEECH: Yes normal speech THOUGHT PROCESS: Normal thought process present Skin: COMMON NORMALS: turgor normal and no jaundice GENERAL SKIN EXAM: turgor normal Data 07/31/23 20:30 07/31/23 20:30 Micro: Microbiology 07/31/23 20:32 Blood Culture - Preliminary Blood SPECIMEN COLLECTED 07/31/23 20:30 Blood Culture - Preliminary Blood SPECIMEN COLLECTED A&P Assessment and plan (1) Acute respiratory failure with hypoxia: (2) Bilateral pneumonia: (3) Sepsis: (4) GABRIELA (acute kidney injury): (5) NSTEMI (non-ST elevated myocardial infarction): (6) Tobacco abuse: (7) Essential hypertension: (8) COPD (chronic obstructive pulmonary disease): (9) Diabetes mellitus: Qualifiers: Diabetes mellitus type: type 2 Diabetes mellitus fpc insulin use: with fpc use Diabetes mellitus complication status: with circulatory complication Diabetes mellitus complication detail: with peripheral angiopathy without gangrene Qualified Code(s): E11.51 - Type 2 diabetes mellitus with diabetic peripheral angiopathy without gangrene; Z79.4 - halfway (current) use of insulin (10) Coronary artery disease: Qualifiers: Associated angina: without angina Coronary Disease-Associated Artery/Lesion type: [place] artery Habematolel vs. transplanted heart: [place] heart Qualified Code(s): I25.10 - Atherosclerotic heart disease of [place] coronary artery without angina pectoris (11) Chronic kidney disease: (12) Hyperlipemia: (13) H/O heart artery stent: (14) H/O carotid endarterectomy: (15) COPD exacerbation: Plan Acute hypoxic respiratory failure -Bilateral pneumonia -COPD exacerbation Plan -Admit to ICU -Start on BiPAP -Continue Rocephin and azithromycin -Budesonide, DuoNebs -Decadron 6 mg IV push every 24 hours -Sputum cultures, blood cultures, respiratory viral panel -Monitor respiratory status closely -D-dimer, cardiac echo, venous ultrasound, Pro-Moy, CRP, troponins COPD exacerbation, quit smoking over 30 years ago, as above Bilateral pneumonia, we will perform CT of the chest NSTEMI -History of CAD status post stenting x5 -No chest pain complaints -Type I versus type II NSTEMI -Serial EKGs, start troponins, telemetry monitoring -Heparin drip -Aspirin, statin, Coreg, Plavix Acute kidney injury, likely secondary to sepsis, gentle IV hydration Sepsis criteria met, pneumonia, febrile, tachycardia, tachypnea, intercostal retractions, nasal flaring, wheezing in all lung [place], acute respiratory failure, elevated troponins, elevated creatinine, leukocytosis Diabetes mellitus, low-dose sliding scale Full code Heparin drip for DVT prophylaxis Attestations Medical Necessity Statement*: Patient requires hospitalization, inpatient, greater than 2 midnights, for acute hypoxic respiratory failure, bilateral pneumonia, sepsis, NSTEMI, acute renal failure, COPD exacerbation, Diagnoses Acute respiratory failure with hypoxia J96.01 Bilateral pneumonia J18.9 Sepsis A41.9 GABRIELA (acute kidney injury) N17.9 NSTEMI (non-ST elevated myocardial infarction) I21.4 Tobacco abuse Z72.0 Essential hypertension I10 COPD (chronic obstructive pulmonary disease) J44.9 Diabetes mellitus E11.51; Z79.4 Diabetes mellitus type: type 2 Diabetes mellitus supervisor intermediates insulin use: with fpc use Diabetes mellitus complication status: with circulatory complication Diabetes mellitus complication detail: with peripheral angiopathy without gangrene Coronary artery disease I25.10 Associated angina: without angina Coronary Disease-Associated Artery/Lesion type: [place] artery Habematolel vs. transplanted heart: [place] heart Chronic kidney disease N18.9 Hyperlipemia E78.5 H/O heart artery stent Z95.5 H/O carotid endarterectomy Z98.890 COPD exacerbation J44.1
[2023-07-31 23:20] VITALS: BP 120/65; PULSE 104; O2SAT 96
[2023-08-01] VITALS (37 sets, daily range): BP systolic 100–171; BP diastolic 43–102; PULSE 81–130; RESP 12–38; TEMP 36.7–37.5; O2SAT 85–94
[2023-08-01] MEDS: pantoprazole 40 mg SDV IVP ×2 (00:15→23:36)
[2023-08-01] MEDS: dexamethasone 10 mg/mL INJ 6 MG IVP (00:15)
[2023-08-01] MEDS: aspirin 81 mg EC Tablet PO ×2 (00:15→08:08)
[2023-08-01] MEDS: carvedilol 3.125 mg Tablet PO ×3 (00:15→23:36)
[2023-08-01] MEDS: ipratropium-albuterol 3 mL Neb INHALATION ×7 (00:27→23:58)
[2023-08-01 00:28] LABS: C Reactive Protein 230.3 mg/L (0.0-4.9)
[2023-08-01 00:31] LABS: Estmated Average Glucose 123; Hemoglobin A1C 5.9 % (4.0-6.0)
[2023-08-01 00:42] LABS: D Dimer 0.96 ug/mLFEU (0-0.59)
[2023-08-01 00:53] LABS: Procalcitonin 0.24 ng/mL (0-0.5)
--- NOTE | 2023-08-01 00:57 | PC.NURSE ---
The of the patient stated that if someone were to wake him up, to be careful because he might try to swing .
[2023-08-01 01:07] LABS: Thyroid Stimulating Hormone 4.26 uIU/mL (0.27-4.20)
[2023-08-01 01:44] LABS: Add Urine Culture? No; Add Urine Microscopic? YES; Amorphous Sediment Urine 1+ /hpf; Bilirubin Urine Neg (Negative); Blood Urine Neg (Negative); Glucose Urine UA Norm (Normal); Ketones Urine 1+ (Negative); Leukocyte Esterase Urine Negative (Negative); Nitrate Urine Negative (Negative); Protein Urine 1+ (Negative); RBC Urine RARE /hpf (0-2); Specific Gravity, Urine 1.015 (1.005-1.030); Urine Appearance Clear (CLEAR); Urine Color Yellow (Yellow); Urobilinogen Urine 1 mg/dL (Negative); WBC Urine RARE /hpf (0-5); pH Urine 5 (5-7)
[2023-08-01] MEDS: heparin drip 25,000 UNIT/500 ML PREMIX 22.86 UNIT IV (02:19)
[2023-08-01] MEDS: heparin 5,000 unit/mL INJ 1 mL IV (02:40)
[2023-08-01 03:24] LABS: Adenovirus Not Detected (NOT DETECT); Chlamydia Pneumoniae Not Detected (NOT DETECT); Coronavirus 229E,HKU1,NL63,OC4 Not Detected (NOT DETECT); Human Metapneumovirus Not Detected (NOT DETECT); Human Rhinovirus/Enterovirus Not Detected (NOT DETECT); Influenza A Not Detected (NOT DETECT); Influenza A H1 Not Detected (NOT DETECT); Influenza A H1-2009 Not Detected (NOT DETECT); Influenza A H3 Not Detected (NOT DETECT); Influenza B Not Detected (NOT DETECT); Mycoplasma Pneumoniae Not Detected (NOT DETECT); Parainfluenza Virus Type 1 Not Detected (NOT DETECT); Parainfluenza Virus Type 2 Not Detected (NOT DETECT); Parainfluenza Virus Type 3 Not Detected (NOT DETECT); Parainfluenza Virus Type 4 Not Detected (NOT DETECT); Respiratory Syncytial Virus A Not Detected (NOT DETECT); Respiratory Syncytial Virus B Not Detected (NOT DETECT)
--- NOTE | 2023-08-01 04:06 | ECG_ITS ---
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 Measurements Intervals [place] Rate: 89 P: 57 [place]: 151 QRS: 12 QRSD: 103 T: 49 QT: 351 QTc: 428 Interpretive Statements SINUS RHYTHM INFERIOR MYOCARDIAL INFARCTION , PROBABLY OLD [40+ ms Q WAVE AND/OR ST/T ABNORMALITY IN II/aVF] Compared to ECG 07/31/2023 21:04:07 Myocardial infarct finding now present Sinus tachycardia no longer present Electronically Signed On 08-01-2023 9:36:59 CDT by Jomar Grider M.D. [id number]
[2023-08-01 04:26] LABS: Glucose Point of Care 219 mg/dL (70-110)
--- NOTE | 2023-08-01 04:50 | ECG_ITS ---
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 Measurements Intervals [place] Rate: 86 P: 46 WV: 144 QRS: 28 QRSD: 104 T: 52 QT: 369 QTc: 443 Interpretive Statements SINUS RHYTHM PROBABLE LATERAL MYOCARDIAL INFARCTION , OF INDETERMINATE AGE [35 ms Q WAVE IN I/aVL/V5/V6] Compared to ECG 08/01/2023 04:06:53 No significant changes Electronically Signed On 08-01-2023 9:40:51 CDT by Jomar Grider M.D. [id number]
[2023-08-01 05:00] LABS: Basophils % 0.2 %; Hematocrit 39.3 % (37-53); Lymphocytes # 0.7 10^3/uL (0.8-4.8); Lymphocytes % 5.4 %; Mean Corpuscular HGB Conc 32.3 g/dL (30-55); Mean Corpuscular Hemoglobin 27.9 pg (27-33); Mean Corpuscular Volume 86.2 fl (82-101); Monocytes # 0.4 10^3/uL (0.2-0.9); Monocytes % 3.3 %; Neutrophils # 11.94 10^3/uL (1.8-7.7); Neutrophils % 90.1 %; Nucleated Red Blood Cells % 0 %; Platelet Count 207 10^3/cmm (157-399); Red Blood Count 4.56 10^6/uL (3.85-5.65); Red Cell Distribution Width 13.4 % (12.1-15.1); White Blood Count 13.25 10^3/uL (3.29-11.43)
[2023-08-01 05:20] LABS: Troponin(5th) Baseline 322 ng/L (0-15)
[2023-08-01 05:21] LABS: Lactic Sepsis W/Reflex 0.9 mmol/L (0.5-2.2)
[2023-08-01 05:55] LABS: Alanine Aminotransferase 13 U/L (0-41); Albumin Level 3.3 g/dL (3.5-5.2); Alkaline Phosphatase 63 U/L (40-130); Anion Gap 16.8 (5-19); Aspartate Amino Transferase 19 U/L (0-40); Blood Urea Nitrogen 31 mg/dL (8-23); Calcium 10.2 mg/dL (8.5-10.5); Carbon Dioxide 21 mmol/L (22-29); Chloride 103 mmol/L (98-107); Globulin 3.3 g/dL (1.3-4.6); Glomerular Filtration Rate 47.1 mL/min (90-130); Glucose 233 mg/dL (65-115); Magnesium 1.8 mg/dL (1.7-2.3); Osmolality Calculated 296 mOsm/kg (285-295); Phosphorus 2.1 mg/dL (2.5-4.5); Potassium 4.8 mmol/L (3.5-5.1); Sodium 136 mmol/L (136-145); Total Bilirubin 0.5 mg/dL (0.15-1.2); Total Protein 6.6 g/dL (6.6-8.7)
--- NOTE | 2023-08-01 06:00 | USR_ITS ---
PROCEDURE INFORMATION: Exam: US Duplex Lower Extremity Veins, Bilateral Exam date and time: 08/01/2023 8:19 AM Age: 63 years old Clinical indication: Pain; Leg, lower; Bilateral; Additional info: Dvt TECHNIQUE: Imaging protocol: Real-time duplex ultrasound of the bilateral extremities with 2-D frazier scale, color Doppler flow and spectral waveform analysis including responses to compression and other maneuvers (when performed) with image documentation. Complete exam focused on the lower extremity veins. COMPARISON: US CV segpressure [facility] [place] [id number] 06/24/2022 1:34 PM FINDINGS: Right deep veins: Unremarkable. The common femoral, femoral, proximal profunda femoral and popliteal veins are patent without thrombus. Normal Doppler waveforms. Normal compressibility and/or augmentation response. Interrogated posterior tibial vein is patent. Left deep veins: Unremarkable. The common femoral, femoral, proximal profunda femoral and popliteal veins are patent without thrombus. Normal Doppler waveforms. Normal compressibility and/or augmentation response. Interrogated posterior tibial and peroneal veins are patent. Superficial veins: Bilateral saphenofemoral junctions are patent without thrombus. Soft tissues: Unremarkable. US/CV venous duplex [facility] [id number] IMPRESSION: No evidence of deep vein thrombosis.
--- NOTE | 2023-08-01 06:00 | USCV_ITS ---
Riccardo Dumont Age: 63 Gender: M : 1960 Exam Date: 08/01/2023 08:37 Ordering Phys: Oswaldo Guerrero MD Technologist: Mario Whitten Exam Location: [facility] Indication: nstemi BP: 130 / 74 HR: 88 Rhythm: Sinus Technical Quality: Adequate MEASUREMENTS (Male / Female) Normal Values 2D ECHO LVOT Diameter 2.0 cm LV Ejection Fraction MOD 2C 73.9 % LV Ejection Fraction 2C AL 75.8 % LA Diameter 3.6 cm LA Width 3.4 cm LA Height 3.8 cm RA Width 3.1 cm RA Height 4.7 cm Aorta at Sinotubular Diameter 2.7 cm IVC Diameter 1.8 cm M-MODE Aortic Annulus Diameter 2.5 cm LA Ao Ratio MM 1.4 MV E Point Septal Separation 0.3 cm DOPPLER AV Peak Velocity 144.0 cm/s LVOT Peak Velocity 113.0 cm/s AV Area Cont Eq vti 2.3 cm squared AV Area Cont Eq pk 2.5 cm squared MV Peak Velocity 125.0 cm/s MV Area PHT 8.1 cm squared Mitral E to A Ratio 1.3 MV E' Velocity 66.5 cm/s Mitral E to MV E' Ratio 11.8 Mitral E to LV E' Lateral Ratio 9.3 Mitral E to LV E' Septal Ratio 16.5 TR Peak Velocity 172.2 cm/s TR Peak Gradient 11.9 mmHg TR Mean Velocity 130.8 cm/s TR Mean Gradient 7.5 mmHg TR Velocity Time Integral 37.6 cm Right Atrial Pressure 3.0 mmHg Pulmonary Artery Systolic Pressu 14.9 mmHg PV Peak Velocity 87.0 cm/s RV Acceleration Time 0.1 s RV Ejection Time 0.2 s RV AcT/ET 0.4 FINDINGS Left Ventricle Left ventricle is normal in size. LV systolic function is normal with EF of 60 to 65%. No regional wall motion abnormalities are seen. Right Ventricle Normal in size and function Right Atrium Normal in size Left Atrium Normal in size Mitral Valve Mitral valve is thickened. Mild mitral regurgitation Aortic Valve Aortic valve is thickened and calcified. No significant stenosis. Mild to moderate aortic regurgitation Tricuspid Valve Mild tricuspid regurgitation. Insufficient TR jet to calculate RVSP Pulmonic Valve Not well-visualized Pericardium Normal Aorta Normal in size IVC Appears to be normal CONCLUSIONS LV systolic function is normal with EF of 60 to 65%. Mild mitral regurgitation Mild to moderate aortic regurgitation Mild tricuspid regurgitation Compared to prior echocardiogram from 2019, no significant changes are seen Jomar Grider MD (Electronically Signed) Final Date: 01 August 2023 12:02 S
[2023-08-01 07:08] LABS: Troponin 5 2HR 301.7 ng/L (0-15); Troponin 5 2HR Delta -20.3 ABS# (0-10)
[2023-08-01 07:37] LABS: Glucose Point of Care 228 mg/dL (70-110)
[2023-08-01] MEDS: cilostazol 100 mg Tablet 50 MG PO ×2 (08:08→17:16)
[2023-08-01] MEDS: ascorbic acid 500 mg Tablet PO (08:08)
[2023-08-01] MEDS: multivitamin therapeutic Tablet 1 TAB PO (08:08)
[2023-08-01] MEDS: atorvastatin 40 mg Tablet PO (08:08)
[2023-08-01] MEDS: clopidogrel 75 mg Tablet PO (08:08)
[2023-08-01] MEDS: tamsulosin 0.4 mg Capsule PO (08:08)
[2023-08-01] MEDS: sertraline 50 mg Tablet PO (08:08)
[2023-08-01] MEDS: insulin lispro 100 unit/1 mL SUBCUT ×3 (08:09→17:33)
[2023-08-01 08:20] LABS: SARS-COV-2 Detected (NOT DETECT)
--- NOTE | 2023-08-01 08:55 | PM.PN ---
Subjective Subjective: Requested COVID PCR which came back positive We will give remdesivir He is already on Decadron updated Patient is currently on 8 L nasal cannula Patient is endorsing feeling slightly better he was hungry and eating breakfast Vitals/I&O/Wt Last Vital Signs Temp 98.1 F 08/01/23 08:00 Pulse 88 08/01/23 08:00 Resp 20 H 08/01/23 08:00 BP 115/74 08/01/23 08:00 Pulse Ox 88 L 08/01/23 08:00 O2 Del Method Nasal Cannula 08/01/23 08:00 O2 Flow Rate 10 08/01/23 06:00 FiO2 40 07/31/23 22:52 07/31/23 08/01/23 08/01/23 22:59 06:59 14:59 Intake Total 1050 / 1050 402.083 / 1452.083 200 / 200 Output Total 1600 / 1600 Balance 1050 / 1050 -1197.917 / -147.917 200 / 200 Weight last 48 hrs Weight 83.461 kg Weight 81.647 kg Physical Exam Narrative: Clinical signs of mild fluid overload Currently on 8 L Bilateral breath sounds with rhonchi and crackles Abdomen soft GCS 15 No active chest pain Pleasant and cooperative Nonfocal neuro exam Urinary Catheter Management: Ng: Cath Placed During This Visit: yes Reason for Continuing Indwelling Catheter: Accurate Measurement of Urinary Output in Critically Ill Patients Urinary Catheter Date of Insertion: 08/01/23 Urinary Catheter Time of Insertion: 01:20 Data 08/01/23 04:41 08/01/23 04:41 Micro: Microbiology 07/31/23 20:32 Blood Culture - Preliminary Blood SPECIMEN COLLECTED 07/31/23 20:30 Blood Culture - Preliminary Blood SPECIMEN COLLECTED A&P Assessment and plan (1) COVID-19 determined by clinical diagnostic criteria: (2) COPD exacerbation: (3) NSTEMI (non-ST elevated myocardial infarction): (4) GABRIELA (acute kidney injury): (5) Bilateral pneumonia: (6) Acute respiratory failure with hypoxia: Plan Acute hypoxia related to COVID-19 Pulm edema with pneumonia Judicious use of fluids Start remdesivir and Decadron Patient put in isolation Discontinue IV azithromycin continue IV ceftriaxone only along DuoNeb Would use BiPAP for as needed use Patient has quit smoking 30 years ago Non-STEMI could be type II [place] related to COVID-19 No active chest pain History of established coronary disease with 5 stents Currently on ACS protocol Will need ischemic work-up once over with COVID GABRIELA: Anticipating improvement with gentle IV hydration Sepsis: Judicious use of fluids considering underlying high BNP and signs of heart failure source is pneumonia related to COVID-19 Type 2 diabetes monitor sugar he is on IV steroids now Cardiac consistent carb diet Full code DVT prophylaxis covered with heparin drip Attestations Medical Necessity Statement*: Continue ICU management Diagnoses COVID-19 determined by clinical diagnostic criteria U07.1 COPD exacerbation J44.1 NSTEMI (non-ST elevated myocardial infarction) I21.4 GABRIELA (acute kidney injury) N17.9 Bilateral pneumonia J18.9 Acute respiratory failure with hypoxia J96.01
[2023-08-01] MEDS: budesonide 0.5 mg/2 mL Neb INHALATION ×2 (08:56→19:37)
[2023-08-01 09:04] LABS: D Dimer 1.07 ug/mLFEU (0-0.59)
[2023-08-01 09:09] LABS: Partial Thromboplastin Time 68.7 SECONDS (23.9-36.7)
--- NOTE | 2023-08-01 09:34 | PC.NURSE ---
upset covid antigen last night was neg and the covid pcr today positive placed on isolation at this time .. aware of isolation doctor here talked with pt and he does agree to take rimdisivir at this time and we have until the to get him better or he will go home... also both upset over no visitor policy overnight .. checking with administration at this time
--- NOTE | 2023-08-01 09:36 | ECG_ITS ---
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 Measurements Intervals [place] Rate: 86 P: 40 TN: 150 QRS: -3 QRSD: 98 T: -1 QT: 348 QTc: 417 Interpretive Statements SINUS RHYTHM PROBABLE INFERIOR MYOCARDIAL INFARCTION , PROBABLY OLD [35 ms Q WAVE IN II/aVF] Compared to ECG 08/01/2023 04:50:59 No significant changes Electronically Signed On 08-01-2023 13:56:48 CDT by Jomar Grider M.D. [id number]
[2023-08-01] MEDS: remdesivir 200 MG in sodium chloride 0.9% (100 ml) 60 ML 100 MG IV (09:57)
[2023-08-01] MEDS: FUROsemide 20 mg Tablet PO (09:57)
[2023-08-01 11:46] LABS: Troponin 5 6HR Delta -34.2 ng/L (0-12)
[2023-08-01 11:47] LABS: Troponin 5 6HR 287.8 ng/L (0-15)
[2023-08-01 11:56] LABS: Glucose Point of Care 252 mg/dL (70-110)
[2023-08-01 17:30] LABS: Glucose Point of Care 273 mg/dL (70-110)
[2023-08-01 18:21] LABS: Partial Thromboplastin Time 43.7 SECONDS (23.9-36.7)
[2023-08-01 21:17] LABS: Glucose Point of Care 175 mg/dL (70-110)
[2023-08-01] MEDS: cefTRIAXone 1,000 MG in sodium chloride 0.9% (plus) 50 ML 100 MG IV (23:35)
[2023-08-02] VITALS (51 sets, daily range): BP systolic 107–157; BP diastolic 53–99; PULSE 79–163; RESP 14–37; TEMP 36.5–36.9; O2SAT 86–97
[2023-08-02] MEDS: heparin drip 25,000 UNIT/500 ML PREMIX 26.13 UNIT IV (00:14)
[2023-08-02 02:06] LABS: Basophils % 0.1 %; Hematocrit 36.6 % (37-53); Lymphocytes # 1.1 10^3/uL (0.8-4.8); Lymphocytes % 6.7 %; Mean Corpuscular HGB Conc 33.3 g/dL (30-55); Mean Corpuscular Hemoglobin 27.8 pg (27-33); Mean Corpuscular Volume 83.4 fl (82-101); Mean Platelet Volume 9.8 fL (7.4-10.4); Monocytes % 6.5 %; Neutrophils # 13.68 10^3/uL (1.8-7.7); Neutrophils % 85.5 %; Nucleated Red Blood Cells % 0 %; Platelet Count 245 10^3/cmm (157-399); Red Blood Count 4.39 10^6/uL (3.85-5.65); Red Cell Distribution Width 13.4 % (12.1-15.1); White Blood Count 16.02 10^3/uL (3.29-11.43)
[2023-08-02 02:21] LABS: Partial Thromboplastin Time 50.4 SECONDS (23.9-36.7)
[2023-08-02 02:26] LABS: Anion Gap 16.3 (5-19); Blood Urea Nitrogen 36 mg/dL (8-23); C Reactive Protein 191.8 mg/L (0.0-4.9); Calcium 10.7 mg/dL (8.5-10.5); Carbon Dioxide 20 mmol/L (22-29); Chloride 102 mmol/L (98-107); Glomerular Filtration Rate 55.6 mL/min (90-130); Glucose 301 mg/dL (65-115); Magnesium 1.5 mg/dL (1.7-2.3); Osmolality Calculated 298 mOsm/kg (285-295); Potassium 4.3 mmol/L (3.5-5.1); Sodium 134 mmol/L (136-145)
[2023-08-02] MEDS: heparin 5,000 unit/mL INJ 1 mL IV (02:54)
[2023-08-02] MEDS: ipratropium-albuterol 3 mL Neb INHALATION ×6 (03:24→23:00)
[2023-08-02 04:09] LABS: ABG PH Result 7.37 (7.35-7.45); Arterial Blood Gas Hematocrit 39.2 % (42-52); Base Excess ABG -4.3 mmol/L (-2.0-2.0); Blood Gas Allen Test Pos; Blood Gas Sample Site Radial, left; Blood Gas Sample Type Arterial; HCO3 ABG 20.3 mmol/L (22-26); Oxygen Device BIPAP; PO2 ABG 68.6 mmHg (80.0-100.0)
--- NOTE | 2023-08-02 05:44 | PC.NURSE ---
Patient transitioned between high flow and Bipap throughout this nurse's shift. Patient does display urinary urgency and attempts to sit on side of bed rapidly to void. Bed alarm utilized to alert staff. Patient pulled left forearm IV 0500. New iv inserted in right AC.
[2023-08-02 06:27] LABS: Glucose Point of Care 266 mg/dL (70-110)
[2023-08-02] MEDS: budesonide 0.5 mg/2 mL Neb INHALATION ×2 (08:00→20:22)
[2023-08-02 08:03] LABS: Glucose Point of Care 258 mg/dL (70-110)
[2023-08-02] MEDS: aspirin 81 mg EC Tablet PO (09:50)
[2023-08-02] MEDS: ascorbic acid 500 mg Tablet PO (09:50)
[2023-08-02] MEDS: clopidogrel 75 mg Tablet PO (09:50)
[2023-08-02] MEDS: dexamethasone 4 mg Tablet 6 MG PO (09:50)
[2023-08-02] MEDS: atorvastatin 40 mg Tablet PO (09:50)
[2023-08-02] MEDS: multivitamin therapeutic Tablet 1 TAB PO (09:50)
[2023-08-02] MEDS: insulin lispro 100 unit/1 mL SUBCUT ×3 (09:50→17:40)
[2023-08-02] MEDS: cilostazol 100 mg Tablet 50 MG PO ×2 (10:30→17:40)
[2023-08-02] MEDS: remdesivir 100 MG in sodium chloride 0.9% (100 ml) 100 ML IV (10:31)
[2023-08-02] MEDS: tamsulosin 0.4 mg Capsule PO (10:31)
[2023-08-02] MEDS: sertraline 50 mg Tablet PO (10:31)
--- NOTE | 2023-08-02 11:24 | PM.PN ---
Subjective Subjective: This morning patient is on 60% 40 L heated high flow Experienced a mopped assist discontinue heparin drip Creatinine improving Adequate urine output No fever Patient is sitting in a chair ate his breakfast Hyperglycemia noted Low magnesium noted Vitals/I&O/Wt Last Vital Signs Temp 98.5 F 08/02/23 03:00 Pulse 128 H 08/02/23 11:12 Resp 20 H 08/02/23 11:10 BP 141/61 08/02/23 06:00 Pulse Ox 89 L 08/02/23 11:10 O2 Del Method Heated High Flow 08/02/23 11:05 O2 Flow Rate 35 08/02/23 11:10 FiO2 55 08/02/23 11:10 08/01/23 08/02/23 08/02/23 22:59 06:59 14:59 Intake Total 206.502 / 851.475 248.640 / 1100.115 Output Total 1100 / 2700 430 / 3130 Balance -893.498 / -1848.525 -181.360 / -2029.885 Weight last 48 hrs Weight 85.82 kg Weight 83.461 kg Weight 81.647 kg Physical Exam Narrative: Patient is in good spirits Currently on heated high flow Productive cough hemoptysis GCS 15 Nonfocal neuro exam Rhonchi and crackles present bilaterally Signs of fluid load improving No active chest pain Nonfocal neuro exam Urinary Catheter Management: Ng: Cath Placed During This Visit: yes, but has since been removed by the nurse Reason for Continuing Indwelling Catheter: Decision to DC Catheter Urinary Catheter Date of Insertion: 08/01/23 Urinary Catheter Time of Insertion: 01:20 Date Urinary Catheter Removed: 08/01/23 Time Urinary Catheter Discontinued: 19:00 Data 08/02/23 01:19 08/02/23 01:19 Micro: Microbiology 07/31/23 20:32 Blood Culture - Preliminary Blood NEGATIVE TO DATE 07/31/23 20:30 Blood Culture - Preliminary Blood NEGATIVE TO DATE A&P Assessment and plan (1) COVID-19 determined by clinical diagnostic criteria: (2) COPD exacerbation: (3) NSTEMI (non-ST elevated myocardial infarction): (4) GABRIELA (acute kidney injury): (5) Sepsis: (6) Bilateral pneumonia: (7) Acute respiratory failure with hypoxia: (8) PAD (peripheral artery disease): (9) Chronic kidney disease: (10) Diabetes mellitus: Qualifiers: Diabetes mellitus type: type 2 Diabetes mellitus truck terminal manager insulin use: with truck terminal manager use Diabetes mellitus complication status: with circulatory complication Diabetes mellitus complication detail: with peripheral angiopathy without gangrene Qualified Code(s): E11.51 - Type 2 diabetes mellitus with diabetic peripheral angiopathy without gangrene; Z79.4 - FDC (current) use of insulin (11) H/O carotid endarterectomy: (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: Plan Acute hypoxia related to pneumonia and COVID-19 Currently on heated high flow 60 L 50% Hemoptysis discontinue heparin drip Continue heated high flow and titrate down oxygen as tolerated Non-STEMI: No active chest pain Continue aspirin and Plavix Discontinue heparin drip today due to hemoptysis Acute on chronic kidney disease: Creatinine improving Sepsis: Resolving Afebrile Leukocytosis related to Decadron Hyperglycemia related to type 2 diabetes Hypomagnesemia: Repleted give 1 g IV Consistent carb diet PT, Full code Patient takes rivaroxaban at home I will like to resume this medication once his mobility is improved I am anticipating patient will stay in the hospital for at least next 3 to 4 days and he might need rehab/select if his oxygen requirement stays high He is not happy about staying in the hospital he is not vaccinated But willing to stay until August 04 Attestations Medical Necessity Statement*: Continue medical management Diagnoses COVID-19 determined by clinical diagnostic criteria U07.1 COPD exacerbation J44.1 NSTEMI (non-ST elevated myocardial infarction) I21.4 GABRIELA (acute kidney injury) N17.9 Sepsis A41.9 Bilateral pneumonia J18.9 Acute respiratory failure with hypoxia J96.01 PAD (peripheral artery disease) I73.9 Chronic kidney disease N18.9 Diabetes mellitus E11.51; Z79.4 Diabetes mellitus type: type 2 Diabetes mellitus truck terminal manager insulin use: with [facility] use Diabetes mellitus complication status: with circulatory complication Diabetes mellitus complication detail: with peripheral angiopathy without gangrene H/O carotid endarterectomy Z98.890 Neurologic gait disorder R26.9
[2023-08-02 11:34] LABS: Glucose Point of Care 193 mg/dL (70-110)
[2023-08-02] MEDS: carvedilol 3.125 mg Tablet PO ×2 (11:38→23:02)
[2023-08-02] MEDS: magnesium sulfate premix 1 GM/100 ML PIGGYBACK IV (12:14)
--- NOTE | 2023-08-02 15:05 | PC.NURSE ---
Regular Sprite noted on bedside table. was provided with regular Sprite earlier today. Patient stated he is drinking it now. Pt educated on blood sugar and insulin and the effect of drinking sugary soda. Pt resistant.
[2023-08-02 17:50] LABS: Glucose Point of Care 374 mg/dL (70-110)
--- NOTE | 2023-08-02 18:44 | PC.NURSE ---
Shift summary: Pt ou of bed at breakfast time. He has been sitting up in recliner all shift. He is able to shift and adjust his positions. He is now on 35 liters, 55% heated high flow, he is tolerating it well. He has ate majority of his meals. He has been educated and encouraged to use IS and [place]. He has NOT been observed using either this shift. He is resistant to education and use of IS and [place]. He has required Insulin coverage at every meal for his blood sugar. His has been at bedside most of the shift. Pt and kept updated on paln of care and medications. All questions answer. Pt able to use urinal without difficulty, adequate amount of output : 1100ml. He has used BSC twice this shift, Extra large BM noted.
--- NOTE | 2023-08-02 22:40 | ECG_ITS ---
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 Measurements Intervals [place] Rate: 97 P: 54 [place]: 136 QRS: -3 QRSD: 109 T: 71 QT: 295 QTc: 376 Interpretive Statements SINUS RHYTHM POSSIBLE LEFT ATRIAL ENLARGEMENT [-0.1mV P-WAVE IN V1/V2] POSSIBLE ANTERIOR MYOCARDIAL INFARCTION , PROBABLY OLD [30 ms Q WAVE IN V3/V4, OR R < 0.2 mV IN V4] Compared to ECG 08/01/2023 10:14:55 No significant changes Electronically Signed On 08-03-2023 8:20:35 CDT by Jomar Grider M.D. [id number]
[2023-08-02] MEDS: pantoprazole 40 mg SDV IVP (23:02)
[2023-08-02] MEDS: cefTRIAXone 1,000 MG in sodium chloride 0.9% (plus) 50 ML 100 MG IV (23:02)
[2023-08-03] VITALS (52 sets, daily range): BP systolic 117–165; BP diastolic 52–86; PULSE 70–100; RESP 15–35; TEMP 36.6; O2SAT 86–98; BMI 25.0
[2023-08-03 00:07] LABS: Troponin(5th) Baseline 273 ng/L (0-15)
[2023-08-03 00:08] LABS: Anion Gap 16.3 (5-19); Blood Urea Nitrogen 41 mg/dL (8-23); Calcium 11.1 mg/dL (8.5-10.5); Carbon Dioxide 20 mmol/L (22-29); Chloride 102 mmol/L (98-107); Glomerular Filtration Rate 43.7 mL/min (90-130); Glucose 415 mg/dL (65-115); Magnesium 1.8 mg/dL (1.7-2.3); Osmolality Calculated 306 mOsm/kg (285-295); Potassium 4.3 mmol/L (3.5-5.1); Sodium 134 mmol/L (136-145)
[2023-08-03 02:37] LABS: Troponin 5 2HR 280.2 ng/L (0-15); Troponin 5 2HR Delta 7.2 ABS# (0-10)
[2023-08-03 02:39] LABS: Glucose Point of Care 346 mg/dL (70-110)
[2023-08-03] MEDS: insulin glargine 100 units/1 mL 5 UNIT SUBCUT (03:29)
[2023-08-03 05:40] LABS: Basophils % 0.2 %; Hematocrit 34.9 % (37-53); Lymphocytes # 0.8 10^3/uL (0.8-4.8); Lymphocytes % 5.9 %; Mean Corpuscular HGB Conc 32.7 g/dL (30-55); Mean Corpuscular Hemoglobin 27.6 pg (27-33); Mean Corpuscular Volume 84.5 fl (82-101); Mean Platelet Volume 9.5 fL (7.4-10.4); Monocytes # 0.7 10^3/uL (0.2-0.9); Monocytes % 5.5 %; Neutrophils # 11.18 10^3/uL (1.8-7.7); Neutrophils % 86.3 %; Nucleated Red Blood Cells % 0 %; Platelet Count 251 10^3/cmm (157-399); Red Blood Count 4.13 10^6/uL (3.85-5.65); Red Cell Distribution Width 13.5 % (12.1-15.1); White Blood Count 12.95 10^3/uL (3.29-11.43)
[2023-08-03 06:21] LABS: Anion Gap 13.6 (5-19); Blood Urea Nitrogen 39 mg/dL (8-23); Carbon Dioxide 22 mmol/L (22-29); Chloride 105 mmol/L (98-107); Glucose 361 mg/dL (65-115); Magnesium 1.8 mg/dL (1.7-2.3); Osmolality Calculated 306 mOsm/kg (285-295); Phosphorus 2.5 mg/dL (2.5-4.5); Potassium 4.6 mmol/L (3.5-5.1); Sodium 136 mmol/L (136-145)
[2023-08-03 06:24] LABS: Troponin 5 6HR 286.5 ng/L (0-15); Troponin 5 6HR Delta 13.5 ng/L (0-12)
[2023-08-03 07:17] LABS: Glucose Point of Care 331 mg/dL (70-110)
[2023-08-03] MEDS: ascorbic acid 500 mg Tablet PO (08:16)
[2023-08-03] MEDS: dexamethasone 4 mg Tablet 6 MG PO (08:16)
[2023-08-03] MEDS: tamsulosin 0.4 mg Capsule PO (08:17)
[2023-08-03] MEDS: insulin lispro 100 unit/1 mL SUBCUT ×3 (08:17→17:35)
[2023-08-03] MEDS: apixaban 5 mg Tablet PO ×2 (08:17→20:58)
[2023-08-03] MEDS: aspirin 81 mg EC Tablet PO (08:17)
[2023-08-03] MEDS: clopidogrel 75 mg Tablet PO (08:17)
[2023-08-03] MEDS: sertraline 50 mg Tablet PO (08:17)
[2023-08-03] MEDS: multivitamin therapeutic Tablet 1 TAB PO (08:17)
[2023-08-03] MEDS: atorvastatin 40 mg Tablet PO (08:17)
[2023-08-03] MEDS: budesonide 0.5 mg/2 mL Neb INHALATION ×2 (09:11→19:22)
[2023-08-03] MEDS: ipratropium-albuterol 3 mL Neb INHALATION ×5 (09:12→23:00)
[2023-08-03] MEDS: remdesivir 100 MG in sodium chloride 0.9% (100 ml) 100 ML IV (09:44)
[2023-08-03] MEDS: cilostazol 100 mg Tablet 50 MG PO (09:44)
--- NOTE | 2023-08-03 10:48 | PM.PN ---
Subjective Subjective: Change anticoagulating to Eliquis Stress test tomorrow Discontinue isolation Stress test tomorrow morning Patient instructed not to drink caffeine No fever Discontinue IV antibiotics changed to Augmentin Still experiencing mild palpation Hemoglobin stable Creatinine improving Had an episode of SVT overnight which resolved spontaneously FiO2 70% on heated high flow however he is saturating 96% We will ask RT to wean off oxygen to prepare him for stress test tomorrow Vitals/I&O/Wt Last Vital Signs Temp 97.9 F 08/03/23 09:30 Pulse 76 08/03/23 09:30 Resp 21 H 08/03/23 09:30 BP 138/70 08/03/23 09:00 Pulse Ox 92 08/03/23 09:30 O2 Del Method Heated High Flow 08/03/23 09:30 O2 Flow Rate 70 08/03/23 09:30 FiO2 60 08/03/23 08:00 08/02/23 08/03/23 08/03/23 22:59 06:59 14:59 Intake Total 350 / 983 50 / 1033 340 / 340 Output Total 450 / 1450 1400 / 2850 300 / 300 Balance -100 / -467 -1350 / -1817 40 / 40 Weight last 48 hrs Weight 83.915 kg Weight 85.82 kg Physical Exam Narrative: Patient sitting in a chair Currently on 70% heated high flow Saturating 96% S1, S2 Awake and alert Eating breakfast Lower 70 swelling improving No rhonchi or crackles appreciated today on lung auscultation Urinary Catheter Management: Ng: Cath Placed During This Visit: yes, but has since been removed by the nurse Reason for Continuing Indwelling Catheter: Decision to DC Catheter Urinary Catheter Date of Insertion: 08/01/23 Urinary Catheter Time of Insertion: 01:20 Date Urinary Catheter Removed: 08/01/23 Time Urinary Catheter Discontinued: 19:00 Data 08/03/23 05:33 08/03/23 05:33 A&P Assessment and plan (1) COVID-19 determined by clinical diagnostic criteria: (2) COPD exacerbation: (3) NSTEMI (non-ST elevated myocardial infarction): (4) GABRIELA (acute kidney injury): (5) Bilateral pneumonia: (6) Acute respiratory failure with hypoxia: (7) Chronic kidney disease: (8) Diabetes mellitus: Qualifiers: Diabetes mellitus type: type 2 Diabetes mellitus half-way insulin use: with buttermaker continuous churn use Diabetes mellitus complication status: with circulatory complication Diabetes mellitus complication detail: with peripheral angiopathy without gangrene Qualified Code(s): E11.51 - Type 2 diabetes mellitus with diabetic peripheral angiopathy without gangrene; Z79.4 - termite control servicer (current) use of insulin (9) Coronary artery disease: Qualifiers: Associated angina: without angina Coronary Disease-Associated Artery/Lesion type: [place] artery [place] vs. transplanted heart: [place]bee heart Qualified Code(s): I25.10 - Atherosclerotic heart disease of [place] coronary artery without angina pectoris (10) PAD (peripheral artery disease): (11) COPD (chronic obstructive pulmonary disease): Plan Acute hypoxia related to COVID-19 Continue impressive air and Decadron FiO2 requirement increased from yesterday however he is saturating 96% on 70 L heated high flow We will request RT to wean off oxygen to nasal cannula if possible Non-STEMI Finished heparin currently patient is on Eliquis Hemoptysis noticed No H&H significant drop which No hemodynamic instability My concern is related to possible PE however reluctant to do CTA chest at this point Continue Eliquis and stress test tomorrow morning Echo did not show any wall motion abnormality, preserved ejection fraction Diastolic CHF: Continue Lasix and potassium SVT single episode: Check mag level, continue mag supplement currently patient is hemodynamically stable Acute on chronic kidney disease: Improved with diuresis Consistent carb diet for type 2 diabetes Full code Patient is willing to stay Attestations Medical Necessity Statement*: Continue medical management, continue ICU Diagnoses COVID-19 determined by clinical diagnostic criteria U07.1 COPD exacerbation J44.1 NSTEMI (non-ST elevated myocardial infarction) I21.4 GABRIELA (acute kidney injury) N17.9 Bilateral pneumonia J18.9 Acute respiratory failure with hypoxia J96.01 Chronic kidney disease N18.9 Diabetes mellitus E11.51; Z79.4 Diabetes mellitus type: type 2 Diabetes mellitus buttermaker continuous churn insulin use: with buttermaker continuous churn use Diabetes mellitus complication status: with circulatory complication Diabetes mellitus complication detail: with peripheral angiopathy without gangrene Coronary artery disease I25.10 Associated angina: without angina Coronary Disease-Associated Artery/Lesion type: [place] artery [place] vs. transplanted heart: [place] heart PAD (peripheral artery disease) I73.9 COPD (chronic obstructive pulmonary disease) J44.9
--- NOTE | 2023-08-03 10:56 | XR_ITS ---
WS: [id number] EXAMINATION: XR chest 1V portable [id number] REASON FOR EXAM: covid COMPARISON: 07/31/2023 ORDER DATE: 08/03/2023 10:59 AM TECHNIQUE: A single, portable frontal chest x-ray was obtained. X-RAY FINDINGS: There are patchy bilateral pulmonary interstitial alveolar infiltrates which have increased compared to the previous study. The pleural spaces are clear. No pleural effusions or pneumothorax. Cardiomediastinal silhouette is normal. No evidence for pulmonary edema. Soft tissue and osseous structures are unremarkable. No tubes or lines are present. IMPRESSION: Increased bilateral infiltrates atypical infection such as COVID-pneumonia and/or other viral pneumon itis to be considered in the differential diagnosis along with pulmonary edema and ARDS.
[2023-08-03 12:04] LABS: Glucose Point of Care 253 mg/dL (70-110)
[2023-08-03] MEDS: carvedilol 3.125 mg Tablet PO ×2 (12:07→23:21)
[2023-08-03 17:33] LABS: Glucose Point of Care 294 mg/dL (70-110)
[2023-08-03] MEDS: magnesium oxide 400 mg tablet PO (17:35)
[2023-08-03] MEDS: amoxicillin-clav 875-125 mg Tablet 1 TAB PO (17:35)
[2023-08-03] MEDS: pantoprazole 40 mg SDV IVP (23:21)
[2023-08-04] VITALS (55 sets, daily range): BP systolic 119–180; BP diastolic 50–83; PULSE 68–98; RESP 16–31; TEMP 36.3; O2SAT 61–97
[2023-08-04] MEDS: ipratropium-albuterol 3 mL Neb INHALATION ×6 (03:02→23:41)
[2023-08-04] MEDS: insulin glargine 100 units/1 mL 5 UNIT SUBCUT (03:11)
[2023-08-04 05:08] LABS: Basophils # 0.1 10^3/uL (0.0-0.1); Basophils % 0.4 %; Eosinophils % 0.1 %; Hematocrit 39.2 % (37-53); Lymphocytes # 1.3 10^3/uL (0.8-4.8); Mean Corpuscular HGB Conc 33.4 g/dL (30-55); Mean Corpuscular Hemoglobin 27.7 pg (27-33); Mean Corpuscular Volume 82.9 fl (82-101); Mean Platelet Volume 9.4 fL (7.4-10.4); Monocytes # 0.7 10^3/uL (0.2-0.9); Monocytes % 4.4 %; Neutrophils # 13.49 10^3/uL (1.8-7.7); Neutrophils % 83.1 %; Nucleated Red Blood Cells % 0 %; Platelet Count 312 10^3/cmm (157-399); Red Blood Count 4.73 10^6/uL (3.85-5.65); Red Cell Distribution Width 13.4 % (12.1-15.1); White Blood Count 16.22 10^3/uL (3.29-11.43)
[2023-08-04 05:28] LABS: Anion Gap 13.6 (5-19); Blood Urea Nitrogen 35 mg/dL (8-23); Calcium 11.8 mg/dL (8.5-10.5); Carbon Dioxide 24 mmol/L (22-29); Chloride 103 mmol/L (98-107); Creatinine Clr Calc Pharmacy 70.4812; Glucose 262 mg/dL (65-115); Osmolality Calculated 299 mOsm/kg (285-295); Potassium 4.6 mmol/L (3.5-5.1); Sodium 136 mmol/L (136-145)
[2023-08-04 05:31] LABS: Magnesium 1.7 mg/dL (1.7-2.3)
[2023-08-04 07:55] LABS: Glucose Point of Care 199 mg/dL (70-110)
--- NOTE | 2023-08-04 08:09 | PC.NURSE ---
Stress test Patient is refusing to do stress test today due to episode of shortness of breath last night and making the patient anxious. NM and overnight physician notified.
[2023-08-04] MEDS: multivitamin therapeutic Tablet 1 TAB PO (08:25)
[2023-08-04] MEDS: dexamethasone 4 mg Tablet 6 MG PO (08:25)
[2023-08-04] MEDS: clopidogrel 75 mg Tablet PO (08:25)
[2023-08-04] MEDS: magnesium oxide 400 mg tablet PO ×2 (08:25→17:59)
[2023-08-04] MEDS: amoxicillin-clav 875-125 mg Tablet 1 TAB PO ×2 (08:25→17:59)
[2023-08-04] MEDS: atorvastatin 40 mg Tablet PO (08:26)
[2023-08-04] MEDS: ascorbic acid 500 mg Tablet PO (08:26)
[2023-08-04] MEDS: sertraline 50 mg Tablet PO (08:26)
[2023-08-04] MEDS: tamsulosin 0.4 mg Capsule PO (08:26)
[2023-08-04] MEDS: apixaban 5 mg Tablet PO (08:26)
[2023-08-04] MEDS: budesonide 0.5 mg/2 mL Neb INHALATION ×2 (08:28→19:53)
[2023-08-04] MEDS: insulin lispro 100 unit/1 mL SUBCUT ×3 (08:29→18:00)
[2023-08-04] MEDS: remdesivir 100 MG in sodium chloride 0.9% (100 ml) 100 ML IV (10:17)
--- NOTE | 2023-08-04 11:08 | CT_ITS ---
WS: [id number] CTA OF THE CHEST WITH PULMONARY EMBOLISM PROTOCOL TECHNIQUE: High-resolution contrast enhanced CTA of the chest with coronal and sagittal reformatted i malcom with pulmonary embolism protocol. MIP images are also reviewed. CLINICAL INFORMATION: hypoxia COMPARISON: 07/31/2023 DLP: 409.[address] scans at [facility] use at least one of these dose optimization techniques: automated e xposure control; mA and/or kV adjustment per patient size (includes targeted exams where dose is matc hed to clinical indication); or iterative reconstruction. FINDINGS: Diffuse groundglass airspace infiltrates have progressed compared to previous with developi ng consolidation. Tiny bilateral pleural effusions with compressive atelectasis in the lung bases. Pr ogressed airspace infiltrates diffusely throughout both lungs suspicious for COVID 19 pneumonia. Enla rged anterior mediastinal and parabronchial lymph nodes likely reactive. Proximal main pulmonary arteries are normal. Normal segmental and subsegmental pulmonary arteries. No evidence of pulmonary embolus. Normal caliber thoracic aorta. Aortic calcification. Coronary calcification.Cholelithiasis. Tiny esop hageal hernia. Splenic artery calcification. Adrenal glands are normal. IMPRESSION: 1. No evidence of pulmonary embolus. 2. Diffuse progressed bilateral airspace infiltrates with developing consolidation. Tiny bilateral p leural effusions. Findings suspicious for COVID-19 pneumonia 3. Reactive anterior mediastinal lymph nodes.
[2023-08-04 11:52] LABS: Glucose Point of Care 165 mg/dL (70-110)
[2023-08-04] MEDS: FUROsemide 10 mg/mL SDV 4mL 40 MG IVP (11:59)
[2023-08-04] MEDS: carvedilol 3.125 mg Tablet PO ×2 (11:59→23:37)
--- NOTE | 2023-08-04 13:59 | PM.PN ---
Subjective Subjective: cxr reviewed added lasrajiv on HHF 70% did not want stress test Vitals/I&O/Wt Last Vital Signs Temp 97.3 F L 08/04/23 07:30 Pulse 87 08/04/23 12:30 Resp 29 H 08/04/23 12:30 BP 156/81 08/04/23 12:30 Pulse Ox 94 08/04/23 12:30 O2 Del Method Heated High Flow 08/04/23 12:30 O2 Flow Rate 40 08/04/23 12:30 FiO2 80 08/04/23 12:30 08/03/23 08/04/23 08/04/23 22:59 06:59 14:59 Intake Total 240 / 940 340 / 340 Output Total 1275 / 1575 500 / 2075 1650 / 1650 Balance -1035 / -635 -500 / -1135 -1310 / -1310 Weight last 48 hrs Weight 83.007 kg Weight 83.915 kg Physical Exam Narrative: Awake and alert S1 S2 mild fluid overload Crackles + ABd soft at bedisde Urinary Catheter Management: Ng: Cath Placed During This Visit: yes, but has since been removed by the nurse Reason for Continuing Indwelling Catheter: Decision to DC Catheter Urinary Catheter Date of Insertion: 08/01/23 Urinary Catheter Time of Insertion: 01:20 Date Urinary Catheter Removed: 08/01/23 Time Urinary Catheter Discontinued: 19:00 Data 08/04/23 04:08 08/04/23 04:08 A&P Assessment and plan (1) COVID-19 determined by clinical diagnostic criteria: (2) COPD exacerbation: (3) NSTEMI (non-ST elevated myocardial infarction): (4) GABRIELA (acute kidney injury): (5) Sepsis: (6) Bilateral pneumonia: (7) Acute respiratory failure with hypoxia: (8) Peripheral neuropathy: (9) COPD (chronic obstructive pulmonary disease): (10) PAD (peripheral artery disease): (11) Diabetes mellitus: Qualifiers: Diabetes mellitus type: type 2 Diabetes mellitus residential insulin use: with residential use Diabetes mellitus complication status: with circulatory complication Diabetes mellitus complication detail: with peripheral angiopathy without gangrene Qualified Code(s): E11.51 - Type 2 diabetes mellitus with diabetic peripheral angiopathy without gangrene; Z79.4 - senior care (current) use of insulin (12) Chronic kidney disease: Plan Patient refused stress test I would add Lasix for fluid overload Add potassium Hold Eliquis patient is still experiencing hemoptysis Requested CTA chest rule out PE No active chest pain Currently on 70% heated high flow Requested PT evaluation Attestations Medical Necessity Statement*: Continue medical management in ICU Diagnoses COVID-19 determined by clinical diagnostic criteria U07.1 COPD exacerbation J44.1 NSTEMI (non-ST elevated myocardial infarction) I21.4 GABRIELA (acute kidney injury) N17.9 Sepsis A41.9 Bilateral pneumonia J18.9 Acute respiratory failure with hypoxia J96.01 Peripheral neuropathy G62.9 COPD (chronic obstructive pulmonary disease) J44.9 PAD (peripheral artery disease) I73.9 Diabetes mellitus E11.51; Z79.4 Diabetes mellitus type: type 2 Diabetes mellitus residential insulin use: with loss prevention operations manager use Diabetes mellitus complication status: with circulatory complication Diabetes mellitus complication detail: with peripheral angiopathy without gangrene Chronic kidney disease N18.9
[2023-08-04] MEDS: iohexol 350 mg/mL 500 mL Btl (per mL) IV (14:28)
--- NOTE | 2023-08-04 14:42 | PC.NURSE ---
To CT via bed accompanied by 2 nurses and back to room. Trip uneventful.
--- NOTE | 2023-08-04 15:32 | PC.NURSE ---
Overnight visitors Patient's is allowed to spend the night, per Rossy email manager. Visitor is to remain in the patient's room overnight and is allowed to use ICU waiting room restroom if the adjoining room has a patient.
[2023-08-04 17:50] LABS: Glucose Point of Care 330 mg/dL (70-110)
[2023-08-04] MEDS: fluticasone nasal spray 16gm Btl 2 SPRAY NASAL (17:59)
[2023-08-04] MEDS: pantoprazole 40 mg SDV IVP (23:36)
[2023-08-05] VITALS (38 sets, daily range): BP systolic 143–179; BP diastolic 65–83; PULSE 70–107; RESP 10–31; TEMP 36.8–37.1; O2SAT 81–99
[2023-08-05] MEDS: insulin glargine 100 units/1 mL 5 UNIT SUBCUT (03:27)
[2023-08-05] MEDS: ipratropium-albuterol 3 mL Neb INHALATION ×6 (03:35→23:15)
[2023-08-05 03:48] LABS: ABG PCO2 38.5 mmHg (35-45); ABG PH Result 7.46 (7.35-7.45); Arterial Blood Gas Hematocrit 41.5 % (42-52); Blood Gas Sample Site Brachial, right; Blood Gas Sample Type Arterial; HCO3 ABG 27.1 mmol/L (22-26); Oxygen Device NC; PO2 ABG 61.5 mmHg (80.0-100.0)
[2023-08-05 06:11] LABS: Hematocrit 44.8 % (37-53); Mean Corpuscular HGB Conc 32.1 g/dL (30-55); Mean Corpuscular Hemoglobin 27.3 pg (27-33); Mean Corpuscular Volume 84.8 fl (82-101); Mean Platelet Volume 9.6 fL (7.4-10.4); Platelet Count 338 10^3/cmm (157-399); Red Blood Count 5.28 10^6/uL (3.85-5.65); Red Cell Distribution Width 13.7 % (12.1-15.1); White Blood Count 14.89 10^3/uL (3.29-11.43)
[2023-08-05 06:30] LABS: Blood Urea Nitrogen 33 mg/dL (8-23); Calcium 12.3 mg/dL (8.5-10.5); Carbon Dioxide 28 mmol/L (22-29); Chloride 99 mmol/L (98-107); Glucose 271 mg/dL (65-115); Magnesium 1.8 mg/dL (1.7-2.3); Osmolality Calculated 303 mOsm/kg (285-295); Sodium 138 mmol/L (136-145)
[2023-08-05 06:41] LABS: Anion Gap 15.6 (5-19); Potassium 4.6 mmol/L (3.5-5.1)
[2023-08-05 07:14] LABS: Slide Review Slide Review Perform
[2023-08-05 07:15] LABS: Absolute Segmented Neutrophil 12.2 10/cmm (1.6-7.1); Segmented Neutrophils 82 %; Total Cells Counted 100 (0-100)
[2023-08-05 07:16] LABS: Absolute Neutrophil 12.2 10^3/cmm (1.4-6.5); Eosinophils 0 %; Lymphocytes 13 %; Lymphocytes Absolute 1.9 10^3/cmm (1.2-3.4); Monocytes Absolute 0.4 10^3/cmm (0.1-0.6); Platelet Estimate Normal (Normal)
[2023-08-05] MEDS: budesonide 0.5 mg/2 mL Neb INHALATION ×2 (07:54→19:57)
[2023-08-05 07:57] LABS: Glucose Point of Care 236 mg/dL (70-110)
[2023-08-05] MEDS: amoxicillin-clav 875-125 mg Tablet 1 TAB PO ×2 (08:27→18:31)
[2023-08-05] MEDS: dexamethasone 4 mg Tablet 6 MG PO (08:28)
[2023-08-05] MEDS: tamsulosin 0.4 mg Capsule PO (08:28)
[2023-08-05] MEDS: clopidogrel 75 mg Tablet PO (08:28)
[2023-08-05] MEDS: ascorbic acid 500 mg Tablet PO (08:28)
[2023-08-05] MEDS: sertraline 50 mg Tablet PO (08:28)
[2023-08-05] MEDS: atorvastatin 40 mg Tablet PO (08:28)
[2023-08-05] MEDS: potassium chloride ER 20 mEq Tablet PO (08:29)
[2023-08-05] MEDS: insulin lispro 100 unit/1 mL SUBCUT ×3 (08:29→18:31)
[2023-08-05] MEDS: multivitamin therapeutic Tablet 1 TAB PO (08:29)
[2023-08-05] MEDS: magnesium oxide 400 mg tablet PO ×2 (08:29→18:31)
[2023-08-05] MEDS: fluticasone nasal spray 16gm Btl 2 SPRAY NASAL ×2 (08:30→18:34)
--- NOTE | 2023-08-05 08:59 | P.PN_ITS ---
Subjective Subjective: This morning patient is on heated high flow 60 L, 30% Stating he is feeling better Eating breakfast No signs of PE Adequate urine output Last Remdesivir today Vitals/I&O/Wt Last Vital Signs Temp 98.8 F 08/05/23 08:00 Pulse 96 08/05/23 08:00 Resp 20 H 08/05/23 08:00 BP 166/78 08/05/23 08:00 Pulse Ox 92 08/05/23 08:00 O2 Del Method Heated High Flow 08/05/23 08:00 O2 Flow Rate 35 08/05/23 08:00 FiO2 60 08/05/23 08:00 08/04/23 08/05/23 08/05/23 22:59 06:59 14:59 Intake Total 240 / 580 Output Total 750 / 2700 1000 / 3700 Balance -510 / -2120 -1000 / -3120 Weight last 48 hrs Weight 83.007 kg Weight 83.007 kg Physical Exam Narrative: Sitting in a chair Eating breakfast Crackles improved as compared to yesterday Currently on 30% 60 L Pleasant mood GCS 15 Nonfocal exam S1, S2 Abdomen soft Lower extremity no swelling Urinary Catheter Management: Ng: Cath Placed During This Visit: yes, but has since been removed by the nurse Reason for Continuing Indwelling Catheter: Decision to DC Catheter Urinary Catheter Date of Insertion: 08/01/23 Urinary Catheter Time of Insertion: 01:20 Date Urinary Catheter Removed: 08/01/23 Time Urinary Catheter Discontinued: 19:00 Data 08/05/23 05:25 08/05/23 05:25 A&P Assessment and plan (1) COVID-19 determined by clinical diagnostic criteria: (2) COPD exacerbation: (3) NSTEMI (non-ST elevated myocardial infarction): (4) GABRIELA (acute kidney injury): (5) Acute respiratory failure with hypoxia: (6) Chronic kidney disease: (7) Diabetes mellitus: Qualifiers: Diabetes mellitus complication detail: with peripheral angiopathy without gangrene Diabetes mellitus complication status: with circulatory complication Diabetes mellitus exterminator termite insulin use: with nursing home use Diabetes mellitus type: type 2 Qualified Code(s): E11.51 - Type 2 diabetes mellitus with diabetic peripheral angiopathy without gangrene; Z79.4 - predatory animal exterminator (current) use of insulin (8) Coronary artery disease: Qualifiers: Associated angina: without angina Coronary Disease-Associated Artery/Lesion type: [place] artery [place] vs. transplanted heart: [place] heart Qualified Code(s): I25.10 - Atherosclerotic heart disease of [place] coronary artery without angina pectoris (9) PAD (peripheral artery disease): Plan Acute hypoxia related to COPD exacerbation Severe ARDS P to F ratio 100 COVID-19 related pneumonia Continue antibiotics and remdesivir last dose today, continue Decadron Heated high flow 30% 6 L Try to wean him off and see if he would do well on nasal cannula Clinically seems to be doing better No signs of PE. Continue IV Lasix Hemoptysis: Discontinued Eliquis no sign of DVT or PE Non-STEMI: Patient refused stress test no active chest pain History of coronary disease continue antiplatelet therapy, Aspirin was put on hold secondary to hemoptysis Acute on chronic kidney disease: Resolved Patient is having bowel movement on daily basis Hyperglycemia Increase the dose of Lantus Continue magnesium Disposition planning: Once patient is only requiring 4 to 5 L of nasal cannula and then we will discharge him from the hospital right now he is also requireme nt is too high Attestations Medical Necessity Statement*: Continue medical management Coding Level of Care Code 88325 Moderate MDM includes number and complexity of problems actively addressed during encounter, amount and/or complexity of data reviewed/ordered and described risk of complication, morbidity or mortality of management as doc umented Diagnoses COVID-19 determined by clinical diagnostic criteria U07.1 COPD exacerbation J44.1 NSTEMI (non-ST elevated myocardial infarction) I21.4 GABRIELA (acute kidney injury) N17.9 Acute respiratory failure with hypoxia J96.01 Chronic kidney disease N18.9 Diabetes mellitus E11.51; Z79.4 Diabetes mellitus complication detail: with peripheral angiopathy without gangrene Diabetes mellitus complication status: with circulatory complication Diabetes mellitus exterminator termite insulin use: with nursing home use Diabetes mellitus type: type 2 Coronary artery disease I25.10 Associated angina: without angina Coronary Disease-Associated Artery/Lesion type: [place] artery [place] vs. transplanted heart: [place] heart PAD (peripheral artery disease) I73.9
[2023-08-05] MEDS: insulin glargine 100 units/1 mL 10 UNIT SUBCUT (09:15)
[2023-08-05] MEDS: remdesivir 100 MG in sodium chloride 0.9% (100 ml) 100 ML IV (09:15)
[2023-08-05 11:25] LABS: Glucose Point of Care 349 mg/dL (70-110)
[2023-08-05] MEDS: carvedilol 3.125 mg Tablet PO (11:58)
[2023-08-05] MEDS: FUROsemide 10 mg/mL SDV 4mL 40 MG IVP (11:59)
[2023-08-05 17:21] LABS: Glucose Point of Care 341 mg/dL (70-110)
--- NOTE | 2023-08-05 19:41 | PC.NURSE ---
Shift summary: Pt in a jocular mood today. He remains alert and oriented. He has sat up in a chair most of the day except for a 2.5 hour nap in the be this am. His lung sounds are diminished but much improved since Thursday. He is now using a high flow nasal cannula at 10 liters. He finished his course of Remdesivir today. HE received Lasix IV today. He has has 1800ml of urine output today. He has ate adequately. HIs has been in and out of the room throughout the shift. His daughters have been in to visit today also.
[2023-08-06] VITALS (24 sets, daily range): BP systolic 134–172; BP diastolic 63–93; PULSE 62–84; RESP 13–21; TEMP 36.4–36.9; O2SAT 85–96
[2023-08-06] MEDS: pantoprazole 40 mg SDV IVP ×2 (03:03→23:14)
[2023-08-06] MEDS: carvedilol 3.125 mg Tablet PO ×3 (03:04→23:14)
[2023-08-06] MEDS: ipratropium-albuterol 3 mL Neb INHALATION ×5 (04:11→20:20)
[2023-08-06 04:28] LABS: Basophils # 0.1 10^3/uL (0.0-0.1); Basophils % 0.5 %; Eosinophils # 0.1 10^3/uL (0.0-0.8); Eosinophils % 0.4 %; Hematocrit 41.4 % (37-53); Lymphocytes # 1.7 10^3/uL (0.8-4.8); Lymphocytes % 10.3 %; Mean Corpuscular HGB Conc 32.6 g/dL (30-55); Mean Corpuscular Hemoglobin 27.5 pg (27-33); Mean Corpuscular Volume 84.3 fl (82-101); Mean Platelet Volume 9.7 fL (7.4-10.4); Monocytes # 0.7 10^3/uL (0.2-0.9); Monocytes % 4.6 %; Neutrophils # 12.56 10^3/uL (1.8-7.7); Neutrophils % 77.2 %; Nucleated Red Blood Cells % 0 %; Platelet Count 332 10^3/cmm (157-399); Red Blood Count 4.91 10^6/uL (3.85-5.65); Red Cell Distribution Width 13.5 % (12.1-15.1); White Blood Count 16.26 10^3/uL (3.29-11.43)
[2023-08-06 04:54] LABS: Anion Gap 14.7 (5-19); Blood Urea Nitrogen 43 mg/dL (8-23); Calcium 11.9 mg/dL (8.5-10.5); Carbon Dioxide 27 mmol/L (22-29); Chloride 97 mmol/L (98-107); Glucose 308 mg/dL (65-115); Osmolality Calculated 300 mOsm/kg (285-295); Potassium 4.7 mmol/L (3.5-5.1); Sodium 134 mmol/L (136-145)
[2023-08-06 05:00] LABS: ABG PCO2 40.5 mmHg (35-45); ABG PH Result 7.45 (7.35-7.45); Arterial Blood Gas Hematocrit 43.5 % (42-52); Base Excess ABG 3.6 mmol/L (-2.0-2.0); Blood Gas Allen Test Pos; Blood Gas Operator Identificat JB; Blood Gas Sample Site Radial, left; Blood Gas Sample Type Arterial; HCO3 ABG 27.9 mmol/L (22-26); Oxygen Device NC; PO2 ABG 58.9 mmHg (80.0-100.0)
[2023-08-06 05:09] LABS: Slide Review Slide Review Perform
[2023-08-06 05:58] LABS: Glucose Point of Care 282 mg/dL (70-110)
[2023-08-06 08:02] LABS: Glucose Point of Care 273 mg/dL (70-110)
[2023-08-06] MEDS: budesonide 0.5 mg/2 mL Neb INHALATION ×2 (08:14→20:20)
[2023-08-06] MEDS: fluticasone nasal spray 16gm Btl 2 SPRAY NASAL ×2 (09:08→17:51)
[2023-08-06] MEDS: insulin lispro 100 unit/1 mL SUBCUT ×4 (09:09→23:14)
[2023-08-06] MEDS: sertraline 50 mg Tablet PO (09:10)
[2023-08-06] MEDS: potassium chloride ER 20 mEq Tablet PO (09:10)
[2023-08-06] MEDS: insulin glargine 100 units/1 mL 10 UNIT SUBCUT ×2 (09:10→21:42)
[2023-08-06] MEDS: tamsulosin 0.4 mg Capsule PO (09:10)
[2023-08-06] MEDS: atorvastatin 40 mg Tablet PO (09:10)
[2023-08-06] MEDS: clopidogrel 75 mg Tablet PO (09:10)
[2023-08-06] MEDS: dexamethasone 4 mg Tablet 6 MG PO (09:10)
[2023-08-06] MEDS: magnesium oxide 400 mg tablet PO ×2 (09:10→17:51)
[2023-08-06] MEDS: ascorbic acid 500 mg Tablet PO (09:10)
[2023-08-06] MEDS: amoxicillin-clav 875-125 mg Tablet 1 TAB PO ×2 (09:10→17:51)
[2023-08-06] MEDS: multivitamin therapeutic Tablet 1 TAB PO (09:10)
[2023-08-06] MEDS: aspirin 81 mg EC Tablet PO (09:26)
--- NOTE | 2023-08-06 10:15 | P.PN_ITS ---
Subjective Subjective: He can be transferred out of ICU Patient was not happy staying longer He does not want to go to [facility] Currently on 10 L saturating 92% Eating breakfast at the bedside Vitals/I&O/Wt Last Vital Signs Temp 98.2 F 08/05/23 14:00 Pulse 66 08/06/23 08:15 Resp 16 08/06/23 08:15 BP 155/93 08/06/23 06:00 Pulse Ox 91 08/06/23 08:15 O2 Del Method High Flow Nasal Cannula 08/06/23 08:15 O2 Flow Rate 10 08/06/23 08:15 FiO2 50 08/05/23 08:00 08/05/23 08/06/23 08/06/23 22:59 06:59 14:59 Intake Total 360 / 760 360 / 1120 Output Total 850 / 1800 900 / 2700 Balance -490 / -1040 -540 / -1580 Weight last 48 hrs Weight 84.368 kg Weight 83.007 kg Physical Exam Narrative: No signs of fluid overload Currently on 10 L Crackles improved Abdomen soft GC 50 Pleasant and cooperative Eating breakfast Urinary Catheter Management: Ng: Cath Placed During This Visit: yes, but has since been removed by the nurse Reason for Continuing Indwelling Catheter: Decision to DC Catheter Urinary Catheter Date of Insertion: 08/01/23 Urinary Catheter Time of Insertion: 01:20 Date Urinary Catheter Removed: 08/01/23 Time Urinary Catheter Discontinued: 19:00 Data 08/06/23 03:25 08/06/23 03:25 Micro: Microbiology 07/31/23 20:30 Blood Culture - Final Blood NO GROWTH AFTER 5 DAYS 07/31/23 20:32 Blood Culture - Final Blood NO GROWTH AFTER 5 DAYS A&P Assessment and plan (1) COVID-19 determined by clinical diagnostic criteria: (2) COPD exacerbation: (3) NSTEMI (non-ST elevated myocardial infarction): (4) GABRIELA (acute kidney injury): (5) Bilateral pneumonia: (6) Acute respiratory failure with hypoxia: (7) Chronic kidney disease: (8) Diabetes mellitus: Qualifiers: Diabetes mellitus type: type 2 Diabetes mellitus ice maker insulin use: with half-way use Diabetes mellitus complication status: with circulatory complication Diabetes mellitus complication detail: with peripheral angiopathy without gangrene Qualified Code(s): E11.51 - Type 2 diabetes mellitus with diabetic peripheral angiopathy without gangrene; Z79.4 - group home (current) use of insulin (9) Coronary artery disease: Qualifiers: Associated angina: without angina Coronary Disease-Associated Artery/Lesion type: [place] artery [place] vs. transplanted heart: [place] heart Qualified Code(s): I25.10 - Atherosclerotic heart disease of [place] coronary artery without angina pectoris Plan Acute COPD exacerbation COVID-19 related Currently on 10 L nasal cannula Discontinue Decadron Patient finished remdesivir Leukocytosis likely steroid related Transfer out of ICU to [facility] Did not interested in going to [facility] Currently on Augmentin Non-STEMI: No wall motion normality on echo Refuses stress test GABRIELA: Resolved Diastolic CHF: Continue potassium and IV Lasix Hemoptysis: Resolved Hemoglobin stable Continue PT Cardiac diet Hold Eliquis patient was taking very low-dose of Xarelto at home May resume by tomorrow I will discharge him once his oxygen requirement is between 4 to 5 L Attestations Medical Necessity Statement*: Out of ICU to [facility] Diagnoses COVID-19 determined by clinical diagnostic criteria U07.1 COPD exacerbation J44.1 NSTEMI (non-ST elevated myocardial infarction) I21.4 GABRIELA (acute kidney injury) N17.9 Bilateral pneumonia J18.9 Acute respiratory failure with hypoxia J96.01 Chronic kidney disease N18.9 Diabetes mellitus E11.51; Z79.4 Diabetes mellitus type: type 2 Diabetes mellitus half-way insulin use: with ice maker use Diabetes mellitus complication status: with circulatory complication Diabetes mellitus complication detail: with peripheral angiopathy without gangrene Coronary artery disease I25.10 Associated angina: without angina Coronary Disease-Associated Artery/Lesion type: [place] artery [place] vs. transplanted heart: [place] heart
[2023-08-06 11:56] LABS: Glucose Point of Care 242 mg/dL (70-110)
[2023-08-06] MEDS: FUROsemide 10 mg/mL SDV 4mL 40 MG IVP (12:22)
--- NOTE | 2023-08-06 16:45 | PC.NURSE ---
Report called to [facility]. Rpeort given to JOE Sanchez.
[2023-08-06 17:08] LABS: Glucose Point of Care 415 mg/dL (70-110)
--- NOTE | 2023-08-06 17:08 | PC.NURSE ---
Pt transferred to [facility] via [facility] . All belongings with pt. Belongings gather by , Samara. Further update, pt has not had his blood sugar checked yet, given to JOE Sanchez
[2023-08-06 20:58] LABS: Glucose Point of Care 506 mg/dL (70-110)
[2023-08-06] MEDS: insulin lispro 100 unit/1 mL 10 UNIT SUBCUT (21:41)
[2023-08-06 22:53] LABS: Glucose Point of Care 471 mg/dL (70-110)
--- NOTE | 2023-08-06 22:55 | PC.NURSE ---
This nurse re checked the pts blood sugar and informed pt of the results. Pt states well, I will be honest, I did just finish a PB&J sandwich. This nurse educated the pt about diet and lifestyle modifications for a diabetic.
[2023-08-07] VITALS (9 sets, daily range): BP systolic 142–157; BP diastolic 74–79; PULSE 70–83; RESP 16–20; TEMP 36.4–36.6; O2SAT 86–91
[2023-08-07] MEDS: ipratropium-albuterol 3 mL Neb INHALATION ×3 (00:01→08:42)
[2023-08-07 00:31] LABS: Glucose Point of Care 462 mg/dL (70-110)
[2023-08-07 03:35] LABS: ABG PH Result 7.44 (7.35-7.45); Arterial Blood Gas Hematocrit 44.6 % (42-52); Blood Gas Allen Test Pos; Blood Gas LPM 6.5 %; Blood Gas Operator Identificat JB; Blood Gas Sample Site Radial, left; Blood Gas Sample Type Arterial; Oxygen Device NC; PO2 ABG 65.6 mmHg (80.0-100.0)
[2023-08-07 04:52] LABS: Glucose Point of Care 264 mg/dL (70-110)
[2023-08-07 05:32] LABS: Blood Urea Nitrogen 45 mg/dL (8-23); Carbon Dioxide 27 mmol/L (22-29); Chloride 96 mmol/L (98-107); Glomerular Filtration Rate 47.1 mL/min (90-130); Glucose 251 mg/dL (65-115); Osmolality Calculated 296 mOsm/kg (285-295); Sodium 133 mmol/L (136-145)
[2023-08-07 05:35] LABS: Anion Gap 14.6 (5-19); Potassium 4.6 mmol/L (3.5-5.1)
[2023-08-07 07:45] LABS: Glucose Point of Care 246 mg/dL (70-110)
[2023-08-07] MEDS: budesonide 0.5 mg/2 mL Neb INHALATION (08:41)
[2023-08-07] MEDS: potassium chloride ER 20 mEq Tablet PO (08:57)
[2023-08-07] MEDS: aspirin 81 mg EC Tablet PO (08:58)
[2023-08-07] MEDS: sertraline 50 mg Tablet PO (08:58)
[2023-08-07] MEDS: magnesium oxide 400 mg tablet PO (08:58)
[2023-08-07] MEDS: tamsulosin 0.4 mg Capsule PO (08:58)
[2023-08-07] MEDS: clopidogrel 75 mg Tablet PO (08:59)
[2023-08-07] MEDS: amoxicillin-clav 875-125 mg Tablet 1 TAB PO (08:59)
[2023-08-07] MEDS: ascorbic acid 500 mg Tablet PO (09:00)
[2023-08-07] MEDS: fluticasone nasal spray 16gm Btl 2 SPRAY NASAL (09:00)
[2023-08-07] MEDS: atorvastatin 40 mg Tablet PO (09:00)
[2023-08-07] MEDS: multivitamin therapeutic Tablet 1 TAB PO (09:01)
[2023-08-07] MEDS: insulin lispro 100 unit/1 mL SUBCUT (09:02)
[2023-08-07] MEDS: insulin glargine 100 units/1 mL 10 UNIT SUBCUT (09:05)
--- NOTE | 2023-08-07 09:16 | PM.DCS ---
Discharge Providers Date of Admission: 07/31/23 22:50 Date of Discharge: August 07, 2023 Attending Provider at Admission: Oswaldo Guerrero MD Attending Provider at Discharge: Navin Clark MD Primary Care Provider: JADIEL Mtz Diagnoses at Discharge Discharge Diagnosis (1) COVID-19 determined by clinical diagnostic criteria: Status: Acute (2) COPD exacerbation: Status: Acute (3) NSTEMI (non-ST elevated myocardial infarction): Status: Acute (4) GABRIELA (acute kidney injury): Status: Acute (5) Bilateral pneumonia: Status: Acute (6) Acute respiratory failure with hypoxia: Status: Acute (7) Chronic kidney disease: Status: Acute (8) Diabetes mellitus: Status: Acute Qualifiers: Diabetes mellitus type: 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 transplanted heart: nez perce heart Qualified Code(s): I25.10 - Atherosclerotic heart disease of [place] coronary artery without angina pectoris Reason for Visit Reason for Visit: weakness, fever, N/V Hospital Course Hospital Course 63-year-old male who spent 7 days in the hospital for COPD exacerbation related to COVID-19 pneumonia, he was kept on remdesivir Decadron ceftriaxone and heparin drip initially for his significant troponin leakage echo did not show wall motion abnormality patient refused stress test, he kept threatening to leave however finally decided to stay and we were able to wean him off heated high flow to nasal cannula he qualified for 6 L of oxygen at the time of discharge. Patient is stating that he was taking Xarelto 2.5 mg twice daily for his lower extremity DVT. That does is very low I will switch to Eliquis, will add albuterol and Trelegy. Venous Doppler did not show DVT, his lung imaging was consistent with patchy infiltrate related to COVID-19. He remained afebrile. Patient is stating that he does not take anything for his diabetes other than Janumet and he tries to control with diet at home. He does have a ascending thoracic aortic aneurysm 4.4 cm for which he will need close follow-up outpatient Physical Exam Narrative: Patient called for for 6 L of oxygen Awake and alert No signs of heart failure GCS 15 Pleasant and cooperative Urinary Catheter Management: Ng: Cath Placed During This Visit: yes, but has since been removed by the nurse Reason for Continuing Indwelling Catheter: Decision to DC Catheter Urinary Catheter Date of Insertion: 08/01/23 Urinary Catheter Time of Insertion: 01:20 Date Urinary Catheter Removed: 08/01/23 Time Urinary Catheter Discontinued: 19:00 Discharge Data Studies Completed and Pending Completed Studies During Hospitalization Category Date Time Status CT chest wo con [id number] Stat Cat Scan 07/31/23 23:06 Completed CTA PE [CT angio chest PE protcl [id number]] Routine Cat Scan 08/04/23 11:08 Completed XR chest 1V portable [id number] Routine Exams 08/03/23 10:56 Completed XR chest 1V portable [id number] Stat Exams 07/31/23 20:17 [place] [id number] Routine Ultrasound 08/01/23 06:00 Completed CV. echo complete* [id number] Routine Ultrasound 08/01/23 06:00 Completed Pending at discharge Category Date Time Status Sestamibi Stress Test Request Routine Exams 08/03/23 10:49 Stop Req Radiology Impressions Chest CT 07/31/23 23:06 IMPRESSION: 1. Patchy bilateral largely upper lobe airspace infiltrates. 2. Emphysematous changes. 3. Ascending thoracic aorta dilated to 4.4 cm. 4. Cardiomegaly. 5. Coronary artery atherosclerotic calcifications. 6. Scattered prominent mediastinal lymph nodes measuring up to 12.8 mm, nonspecific. 7. Trace right pleural effusion. COMMENTS: In the absence of a history or active diagnosis of lung cancer, it is recommended that this patient with emphysema be evaluated for enrollment in a low dose CT lung cancer screening program. Venous Duplex 08/01/23 06:00 IMPRESSION: No evidence of deep vein thrombosis. Laboratory Results WBC 16.26 10^3/uL (3.29-11.43) H 08/06/23 03:25 RBC 4.91 10^6/uL (3.85-5.65) 08/06/23 03:25 Hgb 13.50 g/dL (11.27-16.99) 08/06/23 03:25 Hct 41.4 % (37-53) 08/06/23 03:25 MCV 84.3 fl (82-101) 08/06/23 03:25 MCH 27.5 pg (27-33) 08/06/23 03:25 MCHC 32.6 g/dL (30-55) 08/06/23 03:25 RDW 13.5 % (12.1-15.1) 08/06/23 03:25 Plt Count 332 10^3/cmm (157-399) 08/06/23 03:25 MPV 9.7 fL (7.4-10.4) 08/06/23 03:25 Neut % (Auto) 77.2 % 08/06/23 03:25 Lymph % (Auto) 10.3 % 08/06/23 03:25 [place] % (Auto) 4.6 % 08/06/23 03:25 Eos % (Auto) 0.4 % 08/06/23 03:25 Baso % (Auto) 0.5 % 08/06/23 03:25 Neut # (Auto) 12.56 10^3/uL (1.8-7.7) H 08/06/23 03:25 Lymph # (Auto) 1.7 10^3/uL (0.8-4.8) 08/06/23 03:25 [place] # (Auto) 0.7 10^3/uL (0.2-0.9) 08/06/23 03:25 Eos # (Auto) 0.1 10^3/uL (0.0-0.8) 08/06/23 03:25 Baso # (Auto) 0.1 10^3/uL (0.0-0.1) 08/06/23 03:25 Nucleated RBC % (auto) 0 % 08/06/23 03:25 Total Counted 100 (0-100) 08/05/23 05:25 Atypical Lymphs % 0.0 % (0-5) 08/05/23 05:25 Absolute Neutrophils 12.2 10^3/cmm (1.4-6.5) H 08/05/23 05:25 Segmented Neutrophils 82 % 08/05/23 05:25 Abs Segm Neuts (Man) 12.2 10/cmm (1.6-7.1) H 08/05/23 05:25 Band Neutrophils 0.0 % 08/05/23 05:25 Abs Band Neuts (Man) 0.0 10^3/cmm (0.0-1.2) 08/05/23 05:25 Absolute Lymphocytes 1.9 10^3/cmm (1.2-3.4) 08/05/23 05:25 Lymphocytes (Manual) 13 % 08/05/23 05:25 Monocytes (Manual) 3.0 % 08/05/23 05:25 Absolute Monocytes 0.4 10^3/cmm (0.1-0.6) 08/05/23 05:25 Eosinophils (Manual) 0 % 08/05/23 05:25 Absolute Eosinophils 0.0 10^3/cmm (0.0-0.7) 08/05/23 05:25 Basophils (Manual) 0.0 % 08/05/23 05:25 Absolute Basophils 0.0 10^3/cmm (0.0-0.2) 08/05/23 05:25 Metamyelocytes 0.0 % 08/05/23 05:25 Myelocytes 2.0 % 08/05/23 05:25 Promyelocytes 0.0 % 08/05/23 05:25 Nucleated RBCs 0.0 /100WBC (0-1) 08/05/23 05:25 Nucleated RBCs # 0.0 /100WBC 08/06/23 03:25 Platelet Estimate Normal (Normal) 08/05/23 05:25 APTT 50.4 SECONDS (23.9-36.7) H 08/02/23 01:19 D-Dimer 1.07 ug/mLFEU (0-0.59) H 08/01/23 08:42 Specimen Type Arterial 08/07/23 03:22 Sample Site Radial, left 08/07/23 03:22 ABG pH 7.44 (7.35-7.45) 08/07/23 03:22 ABG pCO2 38.0 mmHg (35-45) 08/07/23 03:22 ABG pO2 65.6 mmHg (80.0-100.0) L 08/07/23 03:22 ABG HCO3 26.0 mmol/L (22-26) 08/07/23 03:22 ABG O2 Saturation 89.4 07/31/23 22:40 ABG Base Excess 2.0 mmol/L (-2.0-2.0) 08/07/23 03:22 Waqas Test Pos 08/07/23 03:22 A-a O2 Gradient 27.8 mmHg (5-10) H 07/31/23 22:40 Hematocrit 44.6 % (42-52) 08/07/23 03:22 Hgb O2 Saturation 88.1 % (95-100) L 07/31/23 22:40 Carboxyhemoglobin 1.1 %THgb (0.4-20.1) 07/31/23 22:40 Methemoglobin 0.4 % (0.4-1.5) 07/31/23 22:40 Total Hemoglobin 13.0 g/dL (14-18) L 07/31/23 22:40 Sodium 134.0 mmol/L (131-143) 07/31/23 22:40 Potassium 4.2 mmol/L (3.5-5.0) 07/31/23 22:40 Glucose 199.0 mg/dL (70-115) H 07/31/23 22:40 Ionized Calcium 1.4 mmol/L (1.1-1.4) 07/31/23 22:40 O2 Delivery Device Nc 08/07/23 03:22 O2 Liters/Min 6.5 % 08/07/23 03:22 FiO2 60.0 % 08/05/23 03:35 Websphere Consultant ID Paolo 08/07/23 03:22 Sodium 133 mmol/L (136-145) L 08/07/23 04:31 Potassium 4.6 mmol/L (3.5-5.1) 08/07/23 04:31 Chloride 96 mmol/L (98-107) L 08/07/23 04:31 Carbon Dioxide 27 mmol/L (22-29) 08/07/23 04:31 Anion Gap 14.6 (5-19) 08/07/23 04:31 BUN 45 mg/dL (8-23) H 08/07/23 04:31 Creatinine 1.5 mg/dL (0.7-1.2) H 08/07/23 04:31 GFR Calculation 47.1 mL/min (90-130) L 08/07/23 04:31 Glucose 251 mg/dL (65-115) H 08/07/23 04:31 POC Glucose 246 mg/dL (70-110) H 08/07/23 07:06 Estimat Average Glucose 123 07/31/23 00:00 Hemoglobin A1c 5.9 % (4.0-6.0) 07/31/23 00:00 Calculated Osmolality 296 mOsm/kg (285-295) H 08/07/23 04:31 Lactic Acid 0.9 mmol/L (0.5-2.2) 08/01/23 04:41 Calcium 12.0 mg/dL (8.5-10.5) H 08/07/23 04:31 Phosphorus 2.5 mg/dL (2.5-4.5) 08/03/23 05:33 Magnesium 1.8 mg/dL (1.7-2.3) 08/05/23 05:25 Total Bilirubin 0.5 mg/dL (0.15-1.2) 08/01/23 04:41 AST 19 U/L (0-40) 08/01/23 04:41 ALT 13 U/L (0-41) 08/01/23 04:41 Alkaline Phosphatase 63 U/L (40-130) 08/01/23 04:41 Troponin T Gen 5 ng/L 362 ng/L (0-15) H* 07/31/23 20:30 Troponin T Baseline 273 ng/L (0-15) H* 08/02/23 23:34 Troponin T 120 Minute 280.2 ng/L (0-15) H 08/03/23 01:47 Delta Troponin T 7.2 ABS# (0-10) 08/03/23 01:47 Troponin T Hi Sens 6Hr 286.5 ng/L (0-15) H 08/03/23 05:33 Troponin T Hi Sens 6Hr Delta 13.5 ng/L (0-12) H* 08/03/23 05:33 C-Reactive Protein 191.8 mg/L (0.0-4.9) H 08/02/23 01:19 NT-Pro-B Natriuret Pep 940 pg/mL (0-125) H 07/31/23 20:30 Total Protein 6.6 g/dL (6.6-8.7) 08/01/23 04:41 Albumin 3.3 g/dL (3.5-5.2) L 08/01/23 04:41 Globulin 3.3 g/dL (1.3-4.6) 08/01/23 04:41 Procalcitonin 0.24 ng/mL (0-0.5) 07/31/23 00:00 TSH 4.26 uIU/mL (0.27-4.20) H 07/31/23 00:00 Urine Color Yellow (Yellow) 08/01/23 01:23 Urine Appearance Clear (CLEAR) 08/01/23 01:23 Urine pH 5 (5-7) 08/01/23 01:23 Ur Specific [place] 1.015 (1.005-1.030) 08/01/23 01:23 Urine Protein 1+ (Negative) H 08/01/23 01:23 Urine Glucose (UA) Norm (Normal) 08/01/23 01:23 Urine Ketones 1+ (Negative) H 08/01/23 01:23 Urine Blood Neg (Negative) 08/01/23 01:23 Urine Nitrate Negative (Negative) 08/01/23 01:23 Urine Bilirubin Neg (Negative) 08/01/23 01:23 Urine Urobilinogen 1 mg/dL (Negative) H 08/01/23 01:23 Ur Leukocyte Esterase Negative (Negative) 08/01/23 01:23 Urine RBC Rare /hpf (0-2) 08/01/23 01:23 Urine WBC Rare /hpf (0-5) 08/01/23 01:23 Ur Squamous Epith Cells None /hpf (0-5) 08/01/23 01:23 Amorphous Sediment 1+ /hpf 08/01/23 01:23 Urine Bacteria None /hpf (NONE) 08/01/23 01:23 Nasal Influ A H1 2009 PCR Not detected (NOT DETECT) 07/31/23 07:15 Adenovirus (PCR) Not detected (NOT DETECT) 07/31/23 07:15 C. pneumoniae DNA (PCR) Not detected (NOT DETECT) 07/31/23 07:15 Coronavirus 229E (PCR) Not detected (NOT DETECT) 07/31/23 07:15 Human Metapneumovir PCR Not detected (NOT DETECT) 07/31/23 07:15 Influenza A (H1) PCR Not detected (NOT DETECT) 07/31/23 07:15 Influenza A (H3) PCR Not detected (NOT DETECT) 07/31/23 07:15 Influenza Type A (PCR) Not detected (NOT DETECT) 07/31/23 07:15 Influenza Type B (PCR) Not detected (NOT DETECT) 07/31/23 07:15 M. pneumoniae (PCR) Not detected (NOT DETECT) 07/31/23 07:15 Parainfluenza 1 (PCR) Not detected (NOT DETECT) 07/31/23 07:15 Parainfluenza 2 (PCR) Not detected (NOT DETECT) 07/31/23 07:15 Parainfluenza 3 (PCR) Not detected (NOT DETECT) 07/31/23 07:15 Parainfluenza 4 (PCR) Not detected (NOT DETECT) 07/31/23 07:15 RSV Type A (PCR) Not detected (NOT DETECT) 07/31/23 07:15 RSV Type B (PCR) Not detected (NOT DETECT) 07/31/23 07:15 Entero/Rhino (PCR) Not detected (NOT DETECT) 07/31/23 07:15 SARS-CoV-2 (PCR) Detected (NOT DETECT) A 07/31/23 07:15 SARS-CoV-2 Ag (Rapid) negative (Negative) 07/31/23 21:12 Vitals Last Vital Signs Temp 97.6 F 08/07/23 08:52 Pulse 80 08/07/23 08:52 Resp 17 08/07/23 08:52 BP 142/79 08/07/23 08:52 Pulse Ox 91 08/07/23 08:52 O2 Del Method Nasal Cannula 08/07/23 08:52 O2 Flow Rate 6 08/07/23 08:51 FiO2 50 08/05/23 08:00 Discharge Plan Discharge Patient Disposition: Home Condition: Stable Prescriptions: New albuterol sulfate 90 mcg/actuation HFA aerosol inhaler 2 inh inhalation Q8H PRN (Reason: shortness of breath or wheezing) Qty: 6.7 3RF Eliquis 2.5 mg tablet 2.5 mg PO BID Qty: 60 0RF Trelegy Ellipta 100-62.5-25 mcg blister with device 1 inh inhalation DAILY Qty: 28 3RF Continued sertraline 50 mg tablet 50 mg PO DAILY Qty: 30 2RF latanoprost 0.005 % drops 1 drop ophthalmic (eye) DAILY vitamins A,C,[id number]-ebco-[id number] 1 tab PO DAILY Janumet 50-500 mg tablet 1 tab PO BID nitroglycerin 0.4 mg tablet, sublingual 0.4 mg SUBLINGUAL Q5M PRN (Reason: chest pain) Qty: 50 6RF Rx Instructions: do not exceed 3 doses per episode clopidogrel 75 mg tablet 75 mg PO DAILY Qty: 30 6RF pravastatin 40 mg tablet 40 mg PO DAILY Qty: 30 6RF ascorbic acid (vitamin C) 500 mg tablet 500 mg PO DAILY tamsulosin [Flomax] 0.4 mg capsule 0.4 mg PO DAILY pantoprazole [Protonix] 40 mg tablet,delayed release (DR/EC) 40 mg PO DAILY diphenhydramine HCl [Allergy (diphenhydramine)] 25 mg capsule 25 mg PO TID PRN (Reason: Itching) cilostazol 50 mg tablet 50 mg PO BID Qty: 180 3RF amlodipine-benazepril 10-40 mg capsule 1 cap PO DAILY Qty: 90 3RF metoprolol succinate 25 mg tablet extended release 24 hr 25 mg PO DAILY Qty: 90 1RF hydralazine 50 mg tablet 50 mg PO BID Qty: 180 3RF Discontinued Xarelto 2.5 mg tablet 2.5 mg PO BID Qty: 180 3RF Hold Instructions: Resume on 02/28/23. Discharge Orders: Discharge Order (Routine); Ordered 08/07/23 Ordered By: Navin Clark Referrals: Ashley Daniels FNP [Primary Care Provider] - 7-10 days Patient Instructions: Opioid Safety Activity Restrictions/Additional Instructions: Please follow-up with your PCP You need to follow-up for ascending thoracic aortic aneurysm which was 4.4 cm Discharge Attestations Time Spent in Discharge Care*: greater than 30 min Quality Metrics Clinical Quality Measures [ No reported AMI, CVA or VTE this stay] Coding Level of Care Code Acute Code for Chg Fwd Diagnoses COVID-19 determined by clinical diagnostic criteria U07.1 COPD exacerbation J44.1 NSTEMI (non-ST elevated myocardial infarction) I21.4 GABRIELA (acute kidney injury) N17.9 Bilateral pneumonia J18.9 Acute respiratory failure with hypoxia J96.01 Chronic kidney disease N18.9 Diabetes mellitus E11.51; Z79.4 Diabetes mellitus type: type 2 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 transplanted heart: nez perce heart
[2023-08-07 11:48] LABS: Glucose Point of Care 213 mg/dL (70-110)
--- NOTE | 2023-08-07 12:22 | PC.NURSE ---
Patient trying to leave the floor without signing discharge paperwork or getting his oxygen delivered to him. Called HOME and will have Oxygen delivered as soon as possible. Patient is sitting in the waiting room at this time with portable oxygen. Will continue to monitor and try to keep him safe while here.
--- NOTE | 2023-08-07 17:07 | PC.NURSE ---
Jyothi called and Arnulfo is not covered under the patient's insurance and has to trial Spiriva first. Gave verbal order to Jyothi.
== END 2023-08-07 13:11 | disposition home or self-care (01) | DRG 871 ==
LOC: ER 22:02 → ICU 22:50 → MEDSURG 08-06 16:55
PROVIDERS: Admitting Provider Family Medicine; Emergency Provider Emergency Medicine; PCP Nurse Practitioner Family; Visit Provider Internal Medicine
DX: A41.9 Sepsis, unspecified organism (principal); I21.4 Non-ST elevation (NSTEMI) myocardial infarction; U07.1 COVID-19; J12.82 Pneumonia due to coronavirus disease 2019; J80 Acute respiratory distress syndrome; J44.1 Chronic obstructive pulmonary disease with (acute) exacerbation; N17.9 Acute kidney failure, unspecified; I13.0 Hypertensive heart and chronic kidney disease with heart failure and stage 1 through stage 4 chronic kidney disease, or unspecified chronic kidney disease; I50.30 Unspecified diastolic (congestive) heart failure; R04.2 Hemoptysis; I47.10 Supraventricular tachycardia, unspecified; Z86.718 Personal history of other venous thrombosis and embolism; E11.22 Type 2 diabetes mellitus with diabetic chronic kidney disease; N18.9 Chronic kidney disease, unspecified; E11.65 Type 2 diabetes mellitus with hyperglycemia; Z79.84 Long term (current) use of oral hypoglycemic drugs; Z79.02 Long term (current) use of antithrombotics/antiplatelets; I25.10 Atherosclerotic heart disease of native coronary artery without angina pectoris; Z95.5 Presence of coronary angioplasty implant and graft; E78.5 Hyperlipidemia, unspecified; E11.51 Type 2 diabetes mellitus with diabetic peripheral angiopathy without gangrene; I71.60 Thoracoabdominal aortic aneurysm, without rupture, unspecified; E83.42 Hypomagnesemia; R29.818 Other symptoms and signs involving the nervous system; I08.2 Rheumatic disorders of both aortic and tricuspid valves; Z87.891 Personal history of nicotine dependence
CPT/HCPCS: 36415; 36416; 36600; 51702; 71045; 71250; 71275; 80048; 80051; 80053; 81001; 82330; 82803; 82805; 82962; 83036; 83605; 83735; 83880; 84100; 84145; 84443; 84484; 85007; 85025; 85378; 85730; 86140; 87040; 87426; 87486; 87581; 87633; 93005; 93306; 93970; 94640; 94660; 94664; 94760; 96365; 96367; 96372; 96376; 97110; 97116; 97161; 97530; 99285; C9113; J0248; J0456; J0696; J1100; J1644; J1815; J1940; J3475; J7030; J7050; J7626; J8540; Q9967

== ENCOUNTER → 2023-08-18 09:35 | Outpatient (BNVA) | payer MEDICAID, SELFPAY | PROVIDERS: PCP Nurse Practitioner Family; Visit Provider Podiatrist Foot & Ankle Surgery | DX: L60.3 Nail dystrophy (principal); I70.213 Atherosclerosis of native arteries of extremities with intermittent claudication, bilateral legs; B35.3 Tinea pedis; M21.611 Bunion of right foot; M20.42 Other hammer toe(s) (acquired), left foot; M20.41 Other hammer toe(s) (acquired), right foot; M21.612 Bunion of left foot | CPT/HCPCS: 99213 ==

== ENCOUNTER → 2023-12-31 14:23 | Outpatient (BNVA) | payer MEDICAID, SELFPAY | PROVIDERS: PCP Nurse Practitioner Family; Referring Provider Nurse Practitioner Family; Visit Provider Internal Medicine Pulmonary Disease | DX: J43.2 Centrilobular emphysema (principal); Z87.891 Personal history of nicotine dependence; U09.9 Post COVID-19 condition, unspecified; R06.09 Other forms of dyspnea; Z12.2 Encounter for screening for malignant neoplasm of respiratory organs; Z86.718 Personal history of other venous thrombosis and embolism; Z79.01 Long term (current) use of anticoagulants | CPT/HCPCS: 99204 ==

== ENCOUNTER 2024-01-19 15:22 | Outpatient (CLI) | payer MEDICAID, SELFPAY ==
--- NOTE | 2024-01-19 15:30 | CTR_ITS ---
PROCEDURE INFORMATION: Exam: CT Chest Without Contrast; Diagnostic Exam date and time: 01/19/2024 3:48 PM Age: 63 years old Clinical indication: Condition or disease; Lung condition and disease; Pneumonia; Prior surgery; Surgery date: 6+ months; Surgery type: Cardiac stents; Additional info: To check for resolution of infiltrates TECHNIQUE: Imaging protocol: Diagnostic computed tomography of the chest without contrast. Radiation optimization: All CT scans at this facility use at least one of these dose optimization techniques: automated exposure control; mA and/or kV adjustment per patient size (includes targeted exams where dose is matched to clinical indication); or iterative reconstruction. COMPARISON: CT angio chest PE protcl [id number] 08/04/2023 2:21 PM RADIATION DOSE METRICS: Total DLP (mGy-cm): 466.2 FINDINGS: Lungs: Mild centrilobular and subpleural reticular opacities. Left basilar atelectasis. Mixed cystic and ground-glass opacity in the right lung apex measuring 3.2 x 3.8 cm. Otherwise resolution of diffuse airspace disease. No new consolidation. Pleural spaces: Unremarkable. No pneumothorax. No pleural effusion. Heart: Unremarkable. No cardiomegaly. No pericardial effusion. Coronary arteries: Severe coronary artery calcification with stents noted. Lymph nodes: Unremarkable. No enlarged lymph nodes. Vasculature: Ectasia of the ascending thoracic aorta measuring 4.4 cm. Gallbladder and bile ducts: Cholelithiasis. Bones/joints: Unremarkable. No acute fracture. Soft tissues: Unremarkable. CT/CT chest [facility] [id number] IMPRESSION: 1. Mixed cystic and ground-glass opacity in the right lung apex measuring 3.2 x 3.8 cm. Otherwise resolution of diffuse airspace disease. Findings may reflect residual infection versus subsolid lung nodule/mass. Recommend CT Chest at 6-12 months to confirm persistence of the nodule, then CT Chest at 3 years and 5 years. (Reference: Sara) 2. Ectasia of the ascending thoracic aorta measuring 4.4 cm. REFERENCES: Sara Hull et al. Guidelines for Management of Incidental Pulmonary Nodules Detected on CT Images: From the Fleischner Society 2017. Radiology. 2017;284(1):228-243.
== END 2024-01-19 15:23 | disposition home or self-care (01) ==
LOC: RAD 15:24
PROVIDERS: PCP Nurse Practitioner Family; Visit Provider Internal Medicine Pulmonary Disease
DX: J18.9 Pneumonia, unspecified organism (principal); R91.8 Other nonspecific abnormal finding of lung field; Z95.5 Presence of coronary angioplasty implant and graft
CPT/HCPCS: 71250

== ENCOUNTER → 2024-03-08 09:49 | Outpatient (BNVA) | payer MEDICARE, MEDICAID, SELFPAY | PROVIDERS: PCP Nurse Practitioner Family; Visit Provider Podiatrist Foot & Ankle Surgery | DX: L60.3 Nail dystrophy (principal); I70.213 Atherosclerosis of native arteries of extremities with intermittent claudication, bilateral legs | CPT/HCPCS: 11721 ==

== ENCOUNTER → 2024-05-24 14:15 | Outpatient (BNVA) | payer MEDICARE, MEDICAID, SELFPAY | PROVIDERS: PCP Nurse Practitioner Family; Visit Provider Podiatrist Foot & Ankle Surgery | DX: I70.213 Atherosclerosis of native arteries of extremities with intermittent claudication, bilateral legs; L60.3 Nail dystrophy | CPT/HCPCS: 11721 ==

== ENCOUNTER → 2024-08-24 15:14 | Outpatient (BNVA) | payer MEDICARE, MEDICAID, SELFPAY | PROVIDERS: PCP Nurse Practitioner Family; Visit Provider Podiatrist Foot & Ankle Surgery | DX: I70.213 Atherosclerosis of native arteries of extremities with intermittent claudication, bilateral legs; L60.3 Nail dystrophy; B35.1 Tinea unguium | CPT/HCPCS: 11721; 99213 ==

== ENCOUNTER 2024-09-28 15:09 | Outpatient (CLI) | payer MEDICARE, MEDICAID, SELFPAY ==
--- NOTE | 2024-09-28 15:18 | MR_ITS ---
WS: [id number] MR CERVICAL SPINE WO/W COMPARISON: None. HISTORY: CERVICAL INTERVERTEBRAL DISC DENGERATION TECHNIQUE: Sagittal T1, T2 and T2 inversion recovery; axial T2, T2 gradient and fiesta. Post gadolini um imaging with fat saturation technique. FINDINGS:Straightening of the normal cervical lordosis. No high grade central canal narrowing. Disc b ulging worse at C3-C4 and C5-C6. Disc narrowing worse at C5-6. C2-3: Mild facet arthropathy. Mild LEFT and no RIGHT foraminal narrowing. Spinal canal is patent. C3-4: Mild disc bulging with osteophytic ridging. Shallow central protrusion. Slight contact of the c ervical cord. Mild central canal stenosis. Moderate LEFT and mild RIGHT bony foraminal narrowing. C4-5: Disc osteophyte complex with endplate ridging. Advanced facet arthropathy. Moderate bilateral b [place] foraminal narrowing. Spinal canal is patent. C5-6: Disc osteophyte complex with a RIGHT paracentral protrusion with slight indentation cervical co rd. Mild to moderate central canal stenosis. Severe RIGHT and moderate to severe LEFT bony foraminal narrowing. Advanced facet arthropathy with uncovertebral joint hypertrophy. Small amount of myelomala butch in the cervical cord C6-7: Mild disc bulge with osteophytic ridging. Moderate bilateral bony foraminal narrowing. Moderate facet arthropathy. C7-T1: LEFT eccentric disc osteophyte complex. Spinal canal is patent. Moderate LEFT and mild RIGHT b [place] foraminal narrowing. LEFT thyroid nodule measuring 14 mm. MR/MR cervical spine wo/w [id number] IMPRESSION: 1. Mild central canal stenosis C3-C4 and mild to moderate C5-C6. Tiny amount o f myelomalacia in the RIGHT ventral cervical cord at C5-6. 2. Multilevel moderate to severe bony foraminal narrowing worse at LEFT C3-C4, LEFT C4-C5, RIGHT C5-C6, and moderate bilateral C6-7. 3. Moderate to advanced facet arthropathy C4-C5 C5-C6.
[2024-09-28] MEDS: gadobenate dimeglumine 20 mL vial IV (15:37)
== END 2024-09-28 15:10 | disposition home or self-care (01) ==
LOC: RAD 15:20
PROVIDERS: PCP Nurse Practitioner Family; Visit Provider Nurse Practitioner Family
DX: M47.892 Other spondylosis, cervical region (principal); M99.61 Osseous and subluxation stenosis of intervertebral foramina of cervical region; M25.78 Osteophyte, vertebrae; E04.1 Nontoxic single thyroid nodule
CPT/HCPCS: 72156

== ENCOUNTER → 2024-11-23 15:00 | Outpatient (BNVA) | payer MEDICARE, MEDICAID, SELFPAY | PROVIDERS: PCP Nurse Practitioner Family; Visit Provider Podiatrist Foot & Ankle Surgery | DX: I70.213 Atherosclerosis of native arteries of extremities with intermittent claudication, bilateral legs; L60.3 Nail dystrophy; B35.1 Tinea unguium | CPT/HCPCS: 11721 ==

== ENCOUNTER → 2025-03-01 14:01 | Outpatient (BNVA) | payer MEDICARE, MEDICAID, SELFPAY | PROVIDERS: PCP Nurse Practitioner Family; Visit Provider Podiatrist Foot & Ankle Surgery | DX: E11.69 Type 2 diabetes mellitus with other specified complication (principal); L60.3 Nail dystrophy; I73.9 Peripheral vascular disease, unspecified; I70.213 Atherosclerosis of native arteries of extremities with intermittent claudication, bilateral legs; B35.1 Tinea unguium; M21.611 Bunion of right foot; M21.612 Bunion of left foot; M20.41 Other hammer toe(s) (acquired), right foot; M20.42 Other hammer toe(s) (acquired), left foot | CPT/HCPCS: 11721; 99213 ==

== ENCOUNTER → 2025-05-11 11:05 | Outpatient (BNVA) | payer MEDICARE, MEDICAID, SELFPAY | PROVIDERS: PCP Nurse Practitioner Family; Referring Provider Nurse Practitioner Family; Visit Provider Internal Medicine | DX: E11.9 Type 2 diabetes mellitus without complications (principal); E78.2 Mixed hyperlipidemia | CPT/HCPCS: 99204 ==

== ENCOUNTER → 2025-06-13 13:57 | Outpatient (BNVA) | payer MEDICARE, MEDICAID, SELFPAY | PROVIDERS: PCP Nurse Practitioner Family; Visit Provider Podiatrist Foot & Ankle Surgery | DX: E11.8 Type 2 diabetes mellitus with unspecified complications (principal); L60.3 Nail dystrophy; I70.213 Atherosclerosis of native arteries of extremities with intermittent claudication, bilateral legs; M21.611 Bunion of right foot; M21.612 Bunion of left foot | CPT/HCPCS: 11721 ==